=== PATIENT | female | born 1955 | race Caucasian/White ===

== ENCOUNTER 2020-09-04 07:21 | Outpatient (REF) | payer MEDICARE, OTHER, SELFPAY ==
--- NOTE | 2020-09-04 07:25 | MM_ITS ---
EXAMINATION: MM SCREENING DIGITAL BREAST TOMOSYNTHESIS, BILATERAL CLINICAL INFORMATION: Screening. Asymptomatic. The lifetime risk of breast cancer based on the Tyrer-Cuzick Model is 7%. COMPARISON: Mammography: 08/30/2019, 07/13/2018, 06/16/2017 TECHNIQUE: Digital breast tomosynthesis is performed in both the craniocaudal and mediolateral oblique views along with computer-aided detection (CAD). Synthesized 2D images are generated from the tomosynthesis. Additional right CC view is provided. FINDINGS: There are scattered areas of fibroglandular density (ACR BI-RADS breast composition Category b). There are no significant masses, abnormal calcifications, or other abnormalities. No significant changes from prior studies. The axilla and skin contours are unremarkable. MM/MM tomosynthesis screening BI IMPRESSION: No mammographic evidence of malignancy. ASSESSMENT: BI-RADS 1: Negative RECOMMENDATION: Routine annual mammography screening. This patient's information was entered into a reminder system with a target due date for their next mammogram.
== END 2020-09-04 07:22 | disposition home or self-care (01) ==
LOC: HO.MAMMO 07:21
PROVIDERS: PCP Internal Medicine; Visit Provider Internal Medicine
DX: Z12.31 Encounter for screening mammogram for malignant neoplasm of breast (principal)
CPT/HCPCS: 77063; 77067

== ENCOUNTER 2021-09-13 15:21 | Outpatient (REF) | payer MEDICARE, OTHER, SELFPAY ==
--- NOTE | ~2021-09-13 | MM_ITS ---
EXAMINATION: MM SCREENING DIGITAL BREAST TOMOSYNTHESIS, BILATERAL CLINICAL INFORMATION: Screening. Asymptomatic. The lifetime risk of breast cancer based on the Tyrer-Cuzick Model is 8%. COMPARISON: Mammography: 09/04/2020, 08/30/2019, 07/13/2018, 06/16/2017, 01/29/2016, 11/01/2013, 08/17/2012. TECHNIQUE: Digital breast tomosynthesis is performed in both the craniocaudal and mediolateral oblique views along with computer-aided detection (CAD). Synthesized 2D images are generated from the tomosynthesis. Additional left MLO view is provided. FINDINGS: There are scattered areas of fibroglandular density (ACR BI-RADS breast composition Category b). There are no significant masses, abnormal calcifications, or other abnormalities. Parenchymal pattern is similar to prior exams. Small fibroglandular asymmetry posterior medial right breast on CC view is similar to multiple prior exams, beyond field of view on prior study. No developing density. No architectural abnormality. The axilla and skin contours are unremarkable. MM/MM tomosynthesis screening BI IMPRESSION: No significant changes from prior studies. ASSESSMENT: BI-RADS 2: Benign RECOMMENDATION: Routine annual mammography screening. This patient's information was entered into a reminder system with a target due date for their next mammogram.
== END 2021-09-13 15:22 | disposition home or self-care (01) ==
LOC: HO.MAMMO 15:21
PROVIDERS: Visit Provider Internal Medicine
DX: Z12.31 Encounter for screening mammogram for malignant neoplasm of breast (principal)
CPT/HCPCS: 77063; 77067

== ENCOUNTER 2021-12-24 08:09 | Inpatient (IN) | payer MEDICARE, SELFPAY ==
--- NOTE | ~2021-12-24 | CT_ITS ---
EXAMINATION: CT HEAD WITHOUT CONTRAST CLINICAL INFORMATION: Dizziness. COMPARISON: None TECHNIQUE: Contiguous axial imaging was performed from the skull base to vertex without intravenous administration of contrast. This CT examination was performed using dose optimization techniques as appropriate, variously including the following: *Automated exposure control *Adjustment of mA and/or kV according to patient size (this includes techniques or standardized protocols for targeted exams where dose is matched to indication/reason for exam; i.e. extremities or head) *Use of iterative reconstruction technique DLP: 657 mGy-cm FINDINGS: There is no evidence of acute intracranial hemorrhage or territorial infarction. No abnormal mass effect or midline shift is seen. Mcghee to white matter differentiation is well preserved. No extra-axial fluid collections are identified. The ventricles are normal in size. There is no abnormal attenuation within the brain parenchyma. The osseous structures and soft tissues are normal. The visualized portions of the paranasal sinuses are well aerated. The left mastoid air cells appear well-aerated. Partial sclerosis of the right mastoid air cells is noted. CT/CT head/brain wo con IMPRESSION: No acute intracranial pathology.
--- NOTE | ~2021-12-24 | MR_ITS ---
EXAMINATION: MR BRAIN WITHOUT CONTRAST CLINICAL INFORMATION: Dizziness. COMPARISON: Head CT 12/24/2021. TECHNIQUE: Multiplanar, multisequence imaging of the brain was performed without intravenous contrast. FINDINGS: There is no acute infarction, mass, hemorrhage, or extra-axial collection. The ventricles, sulci, and basilar cisterns are normal in size and configuration. Moderate T2/FLAIR hyperintensity seen in the cerebral white matter compatible chronic microangiopathy. The flow voids of the major intracranial arteries appear intact. The bones and extracranial soft tissues are unremarkable. MR/MR head/brain wo con IMPRESSION: No acute infarct, mass lesion, intracranial hemorrhage, or evidence of hydrocephalus. Background changes of chronic microangiopathy.
--- NOTE | ~2021-12-24 | XR_ITS ---
EXAMINATION: XR CHEST CLINICAL INFORMATION: Cough. COMPARISON: Chest x-ray 06/24/2019. TECHNIQUE: 2 views of the chest were obtained. FINDINGS: There is elevated right hemidiaphragm. The lungs are well expanded and clear. Plate-like atelectasis seen in the left lung base. The heart size and pulmonary vascularity are normal. No gross bony abnormality seen. XR/XR chest 2V IMPRESSION: No significant change in elevated right hemidiaphragm. No acute cardiopulmonary process seen.
[2021-12-24 08:12] VITALS: BP 156/76; PULSE 99; RESP 20; TEMP 36.1; O2SAT 97; BMI 29.7
--- NOTE | 2021-12-24 08:43 | ECG_ITS ---
Test Reason : DIZZINESS Blood Pressure : / mmHG Vent. Rate : 085 BPM Atrial Rate : 085 BPM P-R Int : 154 ms QRS Dur : 088 ms QT Int : 374 ms P-R-T Axes : 035 005 032 degrees QTc Int : 445 ms Normal sinus rhythm Nonspecific ST abnormality Abnormal ECG No previous ECGs available Referred By: Norm Max Electronically Signed By:MILVIA BOOTHE MD
--- NOTE | 2021-12-24 08:46 | ED_ITS ---
HPI - Dizziness General Chief Complaint: Dizziness Stated Complaint: Vomiting/Dizzy/Diarrhea Time Seen by Provider: 12/24/21 08:38 Source: patient Mode of arrival: ambulatory Limitations: no limitations History of Present Illness HPI Narrative: this is a 66 years old female presented to the emergency department with chief complaint of dizziness, she describes the dizziness as vertigo which is worse with a head movement better when she states still. She has been vomiting as well. Symptoms started intermittently a week ago got worse yesterday. She denies any medical problems she has history of hypertension number she does not take any medicine MD elicited complaint: dizziness Onset (ago): week(s) (1) Timing: gradual onset Severity: moderate Description: sense of movement and room spinning History of similar symptoms: No Exacerbating factors: movement/ambulation Relieving factors: remaining still Associated symptoms: nausea and vomiting Related Data Previous Rx's Medication Instructions Recorded solifenacin 10 mg tablet 10 mg PO DAILY #90 tab 12/17/20 Allergies Allergy/AdvReac Type Severity Reaction Status Date / Time No Known Allergies Allergy Unverified 05/20/20 15:49 [No Known Allergies*] Review of Systems Review of Systems: Yes all other systems are reviewed and are negative Eyes: Eyes: Reports no additional eye complaints ENT: Reports system reviewed and no additional complaints, except as documented and Reports dizziness Cardiovascular: Cardiovascular: Reports no additional cardiovascular complaints Neurologic: Reports dizziness PMFSH Past Medical History Medical History (Updated 12/24/21 @ 13:57 by Norm Max MD) HTN (hypertension) Surgical History (Updated 12/24/21 @ 08:15 by Jailene Gordillo) H/O: hysterectomy Social History Social History Advance Directives: No Advance Directives Information Provided: No Physical Exam Vital Signs: Vital Signs: Last Vital Signs Temp 97.0 F 12/24/21 08:12 Pulse 88 12/24/21 13:18 Resp 16 12/24/21 13:18 BP 154/71 H 12/24/21 13:18 Pulse Ox 96 12/24/21 13:18 BMI result Body Mass Index 29.7 Const: General: cooperative Orientation/consciousness: patient oriented x3 HEENT: Head: Yes normal to inspection General nose exam: Normal external nose present Face and sinus: Yes normal facial exam Mouth: Normal oral and palatal mucosa present Throat: Yes posterior oropharynx normal Eyes: Other: examination of the eyes shows no nystagmus, no skew deviation pupils equal reactive EOM: EOMs intact bilaterally Neck: Neck: Yes normal visual inspection Resp: Effort & Inspection: normal respiratory effort and able to speak in complete sentences Auscultation: clear to auscultation bilaterally Cardio: Jugular venous distension: no JVD Palpation: normal PMI Rhythm: regular rhythm GI: Inspection: Yes normal to inspection Percussion: Yes normal to p ercussion Auscultation: normal bowel sounds Skin: General skin exam: no rashes or lesions noted and elasticity normal Rashes: no rashes Neuro: Other: cerebellar tests are normal no ataxi seen General: patient oriented x3, no focal motor deficits, CN's II-XI intact bilaterally and normal sensation to monofilament Cranial nerves: Yes Normal accommodation reflex present, Yes Bilaterally intact EOM present and Yes Nystagmus not present Course Reevaluation(s) Reevaluation #1: MRI brain negative, blood work shows that she is anemic which is new did the rectal exam heme-positive stoolsD/W dt . D/W Dr Mccord will admit for OBS MDM - Dizziness Lab Data Result diagrams: 12/24/21 09:08 12/24/21 09:08 Labs: Lab Results 12/24/21 12/24/21 12/24/21 Range/Units 09:08 09:08 09:08 WBC 9.0 (4.8-10.8) X10*3/uL RBC 4.26 (4.20-5.50) X10*6/uL Hgb 8.8 L (12.0-16.0) g/dl Hct 30.7 L (37.0-47.0) % MCV 72.1 L (80.0-98.0) fL MCH 20.7 L (27.0-33.0) pg MCHC 28.7 L (31.0-35.0) g/dl RDW 16.5 H (11.0-16.0) % Plt Count 369 (160-400) X10*3/uL MPV 8.1 L (9.4-12.3) fL Immature Gran % (Auto) 0.8 H (0.0-0.4) % Neut % (Auto) 82.6 H (45-73) % Lymph % (Auto) 11.0 L (20-40) % [place] % (Auto) 4.7 (2-11) % Eos % (Auto) 0.6 (0-4) % Baso % (Auto) 0.3 (0-2) % Lymph # (Auto) 1.0 L (1.2-4.9) X10*3/uL [place] # (Auto) 0.4 (0.1-1.2) X10*3/uL Eos # (Auto) 0.1 (0.0-0.4) X10*3/uL Baso # (Auto) 0.0 (0.0-0.2) X10*3/uL Abs Immat Gran (auto) 0.07 H (0.00-0.03) X10*3/uL Absolute Neuts (auto) 7.4 (2.0-8.3) x10*3/uL Absolute Nucleated RBC 0.000 (0.0-0.012) X10*3/uL Nucleated RBC % (auto) 0.0 (0.0-0.2) /100WBC PT 14.2 H (9.9-13.0) SEC INR 1.2 H (0.9-1.1) Sodium 139 (135-145) mmol/L Potassium 3.7 (3.3-5.1) mmol/L Chloride 103 (96-108) mmol/L Carbon Dioxide 27 (22-29) mmol/L Anion Gap 13 (12-20) BUN 10 (9-16) mg/dL Creatinine 0.60 (0.5-1.4) mg/dL Estim Creat Clear Calc 97.1 Estimated GFR > 60 Random Glucose 124 H (60-115) mg/dL Calcium 9.2 (8.4-10.2) mg/dL Total Bilirubin 0.7 (0.0-1.0) mg/dL AST 9 (5-31) U/L ALT < 6 (0-31) U/L Alkaline Phosphatase 65 (39-117) U/L Troponin I High Sens (<3.5-17.0) ng/L Total Protein 7.2 (6.5-8.0) g/dL Albumin 3.6 (3.5-5.0) g/dL 12/24/21 Range/Units 09:08 WBC (4.8-10.8) X10*3/uL RBC (4.20-5.50) X10*6/uL Hgb (12.0-16.0) g/dl Hct (37.0-47.0) % MCV (80.0-98.0) fL MCH (27.0-33.0) pg MCHC (31.0-35.0) g/dl RDW (11.0-16.0) % Plt Count (160-400) X10*3/uL MPV (9.4-12.3) fL Immature Gran % (Auto) (0.0-0.4) % Neut % (Auto) (45-73) % Lymph % (Auto) (20-40) % [place] % (Auto) (2-11) % Eos % (Auto) (0-4) % Baso % (Auto) (0-2) % Lymph # (Auto) (1.2-4.9) X10*3/uL [place] # (Auto) (0.1-1.2) X10*3/uL Eos # (Auto) (0.0-0.4) X10*3/uL Baso # (Auto) (0.0-0.2) X10*3/uL Abs Immat Gran (auto) (0.00-0.03) X10*3/uL Absolute Neuts (auto) (2.0-8.3) x10*3/uL Absolute Nucleated RBC (0.0-0.012) X10*3/uL Nucleated RBC % (auto) (0.0-0.2) /100WBC PT (9.9-13.0) SEC INR (0.9-1.1) Sodium (135-145) mmol/L Potassium (3.3-5.1) mmol/L Chloride (96-108) mmol/L Carbon Dioxide (22-29) mmol/L Anion Gap (12-20) BUN (9-16) mg/dL Creatinine (0.5-1.4) mg/dL Estim Creat Clear Calc Estimated GFR Random Glucose (60-115) mg/dL Calcium (8.4-10.2) mg/dL Total Bilirubin (0.0-1.0) mg/dL AST (5-31) U/L ALT (0-31) U/L Alkaline Phosphatase (39-117) U/L Troponin I High Sens < 3.5 (<3.5-17.0) ng/L Total Protein (6.5-8.0) g/dL Albumin (3.5-5.0) g/dL Imaging Data MRI: Radiologist's impression: MR BRAIN WITHOUT CONTRAST CLINICAL INFORMATION: Dizziness. COMPARISON: Head CT 12/24/2021. TECHNIQUE: Multiplanar, multisequence imaging of the brain was performed without intravenous contrast. FINDINGS: There is no acute infarction, mass, hemorrhage, or extra-axial collection.? The ventricles, sulci, and basilar cisterns are normal in size and configuration. Moderate T2/FLAIR hyperintensity seen in the cerebral white matter compatible chronic microangiopathy. The flow voids of the major intracranial arteries appear intact. The bones and extracranial soft tissues are unremarkable. MR/MR head/brain wo con IMPRESSION: No acute infarct, mass lesion, intracranial hemorrhage, or evidence of hydrocephalus. Background changes of chronic microangiopathy. Dictated By: GONZALO PETERSON MD Signed By: <Electronically signed by GONZALO PETERSON MD in OV> 12/24/21 1333 DD/ 1235 Discharge Plan Discharge Clinical Impression: Dizziness, Anemia Patient Disposition: Admitted As Inpatient
[2021-12-24 09:12] LABS: MANUAL DIFF FLAG NO
[2021-12-24 09:13] LABS: Basophils Percent Auto 0.3 % (0-2); Eosinophils Absolute Auto 0.1 X10*3/uL (0.0-0.4); Eosinophils Percent Auto 0.6 % (0-4); Hematocrit 30.7 % (37.0-47.0); Hemoglobin 8.8 g/dl (12.0-16.0); Imm Gran Abs Auto 0.07 X10*3/uL (0.00-0.03); Imm Gran Pct Auto 0.8 % (0.0-0.4); Mean Corpuscular HGB Conc 28.7 g/dl (31.0-35.0); Mean Corpuscular Hemoglobin 20.7 pg (27.0-33.0); Mean Corpuscular Volume 72.1 fL (80.0-98.0); Mean Platelet Volume 8.1 fL (9.4-12.3); Monocytes Absolute Auto 0.4 X10*3/uL (0.1-1.2); Monocytes Percent Auto 4.7 % (2-11); Neutrophils Absolute Auto 7.4 x10*3/uL (2.0-8.3); Neutrophils Percent Auto 82.6 % (45-73); Platelet Count 369 X10*3/uL (160-400); Red Blood Count 4.26 X10*6/uL (4.20-5.50); Red Cell Distribution Width 16.5 % (11.0-16.0)
[2021-12-24] MEDS: Metoclopramide HCl 10 MG/2 ML VIAL IVPUSH (09:14)
[2021-12-24] MEDS: 0.9 % Sodium Chloride 1,000 ML 999 ML IVCONT (09:15)
[2021-12-24 09:20] LABS: INTERNATIONAL NORM RATIO 1.2 (0.9-1.1); Prothrombin Time 14.2 SEC (9.9-13.0)
[2021-12-24 09:35] LABS: Alanine Aminotransferase < 6 U/L (0-31); Albumin Level 3.6 g/dL (3.5-5.0); Alkaline Phosphatase 65 U/L (39-117); Anion Gap 13 (12-20); Aspartate Amino Transferase 9 U/L (5-31); Bilirubin Total 0.7 mg/dL (0.0-1.0); Blood Urea Nitrogen 10 mg/dL (9-16); Calcium 9.2 mg/dL (8.4-10.2); Carbon Dioxide 27 mmol/L (22-29); Chloride 103 mmol/L (96-108); Creatinine Clr Calc Pharmacy 97.1; Estimated Glomerular Filt Rate > 60; Glucose Random 124 mg/dL (60-115); Potassium 3.7 mmol/L (3.3-5.1); Sodium 139 mmol/L (135-145); Total Protein 7.2 g/dL (6.5-8.0); Troponin-I High Sensitivity < 3.5 ng/L (<3.5-17.0)
[2021-12-24] MEDS: Meclizine HCl 25 MG TABLET PO ×2 (11:03→23:59)
[2021-12-24 13:18] VITALS: BP 154/71; PULSE 88; RESP 16; O2SAT 96
--- NOTE | 2021-12-24 13:19 | PC.NURSE ---
VSS, dizziness an nausea persist. NSR on montior. speech clear.
[2021-12-24] MEDS: diazePAM 2 MG TABLET 5 MG PO (14:33)
--- NOTE | 2021-12-24 14:45 | P.HPHOSP_ITS ---
History of Present Illness Date of Service: 12/24/21 Attending physician on admission: Jovanny Mccord Chief Complaint: vertiago, anemia 66-year-old female with past medical history of hypertension-coming to the hospital because of having episode of dizziness and spinning sensation at home. She says that she had similar sensation 2 weeks ago which subsided spontaneously but this time she was having severe dizziness and and room spinning sensation, nausea and vomiting multiple times at home-so decided to come to the hospital. She also had tinnitus. Patient says that she gets very dizzy with little movement of her head. In addition patient was found to have anemia in blood work-further ED physician says that occult blood was positive. Patient says that she has invariably occasionally dark stools but more brownish also occasionally noticed red blood with stool. Patient denies any abdominal pain or any change in bowel habits for dysphagia. For patiently has heartburn for which she uses Tums. She also uses ibuprofen daily as per patient. Patient has medical history of hypertension was on blood pressure medication but a year ago she has stopped blood pressure medication on her own, she says then she did not went to her PCP afterwards so she is off any blood pressure medica tions. Currently she feels nauseated, no vomiting so far but feels very dizzy. Concern to walk since feels everything spinning. Past medical history: Hypertension Past surgical history she had colonoscopy in 2017-found to have diverticulosis, internal hemorrhoids. Never had EGD. Social history: Lives with her , denies any smoking or recreational drug use or ETOH use. Independent ADLs Denies any new complaint of chest pain or shortness of breath or abdominal pain or fever or chills or blurred vision. Denies any cough Denies any weakness or numbness. Review of Systems Review of Systems: As above. Yes all other systems are reviewed and are negative PMFSH Medical History HTN (hypertension) Pertinent family history: Mother had renal cancer, father had bladder cancer. Surgical History H/O: hysterectomy Social History Advance Directives: No Advance Directives Information Provided: No Meds Allergies Allergy/AdvReac Type Severity Reaction Status Date / Time No Known Allergies Allergy Unverified 05/20/20 15:49 [No Known Allergies*] Active Medications: Current Medications Diphenhydramine HCl 25 mg/ (Sodium Chloride) 50.5 mls @ 200 mls/hr IV ONCE [facility] Last Infusion: 12/24/21 10:56 Dose: Infused Documented by: Meclizine HCl (Meclizine Hcl 25 Mg Tablet) 25 mg PO Q6H PRN PRN Reason: Vertigo Ondansetron HCl (Ondansetron Hcl 4 Mg/2 Ml Vial) 4 mg IVPUSH Q4H PRN PRN Reason: Nausea and Vomiting Pantoprazole Sodium (Pantoprazole Sodium 40 Mg/10 Ml Vial) 40 mg IVPUSH BID@0630,1630 [facility] Pharmacy Consult (Consult Rx Perform Med Rec) 1 each MISCELLANE ONCE PRN PRN Reason: Consult order Sodium Chloride (0.9 % Sodium Chloride Flush 3 Ml Syringe) 3 ml IVFLUSH QSHIFT [facility] Home Medications Medication Instructions Recorded Confirmed Last Taken Type ibuprofen 200 mg tablet 400 mg PO Q6H PRN 12/24/21 12/24/21 Unknown History Physical Exam Vital Signs and Narrative: Vital Signs: Last Vital Signs Temp 97.0 F 12/24/21 08:12 Pulse 88 12/24/21 13:18 Resp 16 12/24/21 13:18 BP 154/71 H 12/24/21 13:18 Pulse Ox 96 12/24/21 13:18 BMI result Body Mass Index 29.7 Appearance: Alert.? Oriented X3.? not in distress.? Eyes: Pupils equal, round and reactive to light.? Sclera nonicteric.? ENT: Pharynx normal.? Moist mucous membranes. cvs: rrr, [id number] , no murmur res: clear to auscultation ,no rhonchii or wheezing abd: no rebound or guarding ,nt, bs present. ext pulses present , no cyanosis . neuro: axo3 , eomi ,perrla nystagymus present moves all ext sensations intact face symterical. Results Labs CBC and Chem 7: 12/24/21 09:08 12/24/21 09:08 Labs: Laboratory Results - last 24 hr 12/24/21 12/24/21 12/24/21 09:08 09:08 09:08 MCV 72.1 L MCH 20.7 L MCHC 28.7 L RDW 16.5 H Plt Count 369 MPV 8.1 L Immature Gran % (Auto) 0.8 H Neut % (Auto) 82.6 H Lymph % (Auto) 11.0 L [place] % (Auto) 4.7 Eos % (Auto) 0.6 Baso % (Auto) 0.3 Lymph # (Auto) 1.0 L [place] # (Auto) 0.4 Eos # (Auto) 0.1 Baso # (Auto) 0.0 Abs Immat Gran (auto) 0.07 H Absolute Neuts (auto) 7.4 Absolute Nucleated RBC 0.000 Nucleated RBC % (auto) 0.0 PT 14.2 H INR 1.2 H Anion Gap 13 Estim Creat Clear Calc 97.1 Estimated GFR > 60 Random Glucose 124 H Calcium 9.2 Total Bilirubin 0.7 AST 9 ALT < 6 Alkaline Phosphatase 65 Troponin I High Sens Total Protein 7.2 Albumin 3.6 12/24/21 09:08 MCV MCH MCHC RDW Plt Count MPV Immature Gran % (Auto) Neut % (Auto) Lymph % (Auto) [place] % (Auto) Eos % (Auto) Baso % (Auto) Lymph # (Auto) [place] # (Auto) Eos # (Auto) Baso # (Auto) Abs Immat Gran (auto) Absolute Neuts (auto) Absolute Nucleated RBC Nucleated RBC % (auto) PT INR Anion Gap Estim Creat Clear Calc Estimated GFR Random Glucose Calcium Total Bilirubin AST ALT Alkaline Phosphatase Troponin I High Sens < 3.5 Total Protein Albumin ECG Attestation: I personally reviewed and interpreted this ECG as follows: (nsr) Imaging Radiologist's Impressions: Impressions Head CT 12/24/21 09:34 IMPRESSION: No acute intracranial pathology. Brain MRI 12/24/21 12:35 IMPRESSION: No acute infarct, mass lesion, intracranial hemorrhage, or evidence of hydrocephalus. Background changes of chronic microangiopathy. Assessment and Plan (1) Dizziness: Status: Acute (2) Anemia: Status: Acute Plan 66-year-old female with vertigo and anemia. Possible benign positional vertigo: CT and MRI head seems fine. Will start patient on meclizine, nausea medication and gentle hydration. Microcytic anemia: Occult blood positive as per ED physician. Possible related to GI blood loss-which seems chronic. Stop ibuprofen, ppi, type and cross. Iron studies, monitor CBC closely. Previous colonoscopy in 2017 reveals-diverticulosis and internal hemorrhoid. GI evaluation Hypertension: We may add amlodipine low-dose. dvt prophyalx: Mechanical devices due to anemia. Above management discussed with patient and her in detail length, they both understand and in agreement with above plan, time spent 70 minute, patient full code. Patient name is Mr. Cueto: Phone [phone] Quality Stroke Does the patient have a stroke diagnosis?: No VTE Prior VTE?: No VTE Risk Level:: Medical - moderate - high VTE Device Contraindication: N/A - Device Ordered VTE Drug Contraindication: N/A - Med Ordered
[2021-12-24 14:49] LABS: OBS Int Ctl Valid YES; OBS1 POSITIVE (NEGATIVE)
[2021-12-24 14:53] LABS: Iron 20 mcg/dL (30-160); Percent Iron Saturation 6 % (15-50); Total Iron Binding Capacity 352 mcg/dL (228-428); Unsaturated Iron Binding 332 ug/dL
--- NOTE | 2021-12-24 14:54 | PHA.MEDREC ---
Pharmacy Consult ? Medication Reconciliation Pharmacy has completed the medication reconciliation.Spoke with patient in ED
[2021-12-24 15:05] LABS: COVID-19 Test Negative (Negative)
[2021-12-24 15:13] LABS: Ferritin 9 ng/mL (10-250)
--- NOTE | 2021-12-24 15:47 | PM.GICN ---
History of Present Illness Data of Consult Service Date: 12/24/21 Requesting physician: Jovanny Mccord Primary Care Provider: Ford Krishnan MD [facility] Reason for consult: anemia 66-year-old female with past medical history of hypertension-who I am seeing for assessment for anemia. She actually presented with sudden onset left ear tinnitus with vertigo and non bloody emesis with nausea. No headache or limb weakness or slurred speech. symptoms worse with turning her head. As part of work up she had lasb drawn with HGB 8.8 and low MCY (HGB had been 13 g/dl 3 yrs ago. She does endorse occ blood mixed in stool for last several months as well as new onset post prandail diarrheal type stool. she has been taking ibuprofen for years for back pain on daily basis, with occ use of tums or pepcid for dyspepsia. Denies melena, epistaxis, hemoptysis, vaginal bleeding or hematuria. She gets v occ lower abdominal cramps. she had colonoscopy in 2017-found to have diverticulosis, internal hemorrhoids.? Never had EGD. Lives with her , denies any smoking or recreational drug use or ETOH use. Review of Systems Review of Systems: As above. Yes all other systems are reviewed and are negative Constitutional: Constitutional: Reports as per HPI Eyes: Eyes: Reports no additional eye complaints ENT: Reports system reviewed and no additional complaints, except as documented, Reports vertigo and Reports dizziness Cardiovascular: Cardiovascular: Reports no additional cardiovascular complaints Gastrointestinal: Gastrointestinal: Reports as per HPI Genitourinary: Genitourinary: Reports no additional female genitourinary complaints Musculoskeletal: Musculoskeletal: Reports no additional musculoskeletal complaints Neurologic: Reports vertigo and Reports dizziness Psychiatric: Psychiatric: Reports no additional psychiatric complaints Endocrine: Endocrine: Reports no additional endocrine complaints Hematologic/Lymphatic: Hematologic/Lymphatic: Reports no additional hematologic/lymphatic complaints Allergic/Immunologic: Allergic/Immunologic: Reports no additional allergic/immunologic complaints [facility] Past Medical History Medical History HTN (hypertension) Functional capacity: independent ambulation Family History Pertinent family history: Mother had renal cancer, father had bladder cancer. Surgical History Surgical History H/O: hysterectomy Social History Social History (Updated 12/24/21 @ 15:56 by Jakub Ortiz MD) Alcohol intake: never Patient Tobacco Use Status: Never used Tobacco Use of substances other than those prescribed or required for medical reasons: No Advance Directives: No Advance Directives Information Provided: No Meds Allergies Allergy/AdvReac Type Severity Reaction Status Date / Time No Known Allergies Allergy Unverified 05/20/20 15:49 [No Known Allergies*] Active Medications: Current Medications Amlodipine Besylate (Amlodipine Besylate 2.5 Mg Tablet) 2.5 mg PO DAILY [facility]; Protocol Diphenhydramine HCl 25 mg/ (Sodium Chloride) 50.5 mls @ 200 mls/hr IV ONCE [facility] Last Infusion: 12/24/21 10:56 Dose: Infused Documented by: Meclizine HCl (Meclizine Hcl 25 Mg Tablet) 25 mg PO Q6H PRN PRN Reason: Vertigo Ondansetron HCl (Ondansetron Hcl 4 Mg/2 Ml Vial) 4 mg IVPUSH Q8H PRN PRN Reason: Nausea and Vomiting Pantoprazole Sodium (Pantoprazole Sodium 40 Mg/10 Ml Vial) 40 mg IVPUSH BID@0630,1630 [facility] Pharmacy Consult (Consult Rx Perform Med Rec) 1 each MISCELLANE ONCE PRN PRN Reason: Consult order Sodium Chloride (0.9 % Sodium Chloride Flush 3 Ml Syringe) 3 ml IVFLUSH QSHIFT [facility] Home Medications Medication Instructions Recorded Confirmed Last Taken Type ibuprofen 200 mg tablet 400 mg PO Q6H PRN 12/24/21 12/24/21 Unknown History Physical Exam Vital Signs: Vital Signs: Last Vital Signs Temp 97.0 F 12/24/21 08:12 Pulse 88 12/24/21 13:18 Resp 16 12/24/21 13:18 BP 154/71 H 12/24/21 13:18 Pulse Ox 96 12/24/21 13:18 BMI result Body Mass Index 29.7 Const: General: cooperative Orientation/consciousness: patient oriented x3 HEENT: Head: Yes normal to inspection General nose exam: Normal external nose present Face and sinus: Yes normal facial exam Mouth: Normal oral and palatal mucosa present Throat: Yes posterior oropharynx normal Eyes: Other: examination of the eyes shows no nystagmus, no skew deviation pupils equal reactive EOM: EOMs intact bilaterally Neck: Neck: Yes normal visual inspection Resp: Effort & Inspection: normal respiratory effort and able to speak in complete sentences Auscultation: clear to auscultation bilaterally Cardio: Jugular venous distension: no JVD Palpation: normal PMI Rhythm: regular rhythm GI: Inspection: Yes normal to inspection Percussion: Yes normal to percussion Auscultation: normal bowel sounds Skin: General skin exam: no rashes or lesions noted and elasticity normal Rashes: no rashes Neuro: Other: cerebellar tests are normal no ataxi seen General: patient oriented x3, no focal motor deficits, CN's II-XI intact bilaterally and normal sensation to monofilament Cranial nerves: Yes Normal accommodation reflex present, Yes Bilaterally intact EOM present and Yes Nystagmus not present Extrem: General: Yes normal to inspection Psych: Appearance: grossly normal Results Labs CBC & Chem 7: 12/24/21 09:08 12/24/21 09:08 Labs: Short CBC 12/24/21 Range/Units 09:08 WBC 9.0 (4.8-10.8) X10*3/uL Hgb 8.8 L (12.0-16.0) g/dl Hct 30.7 L (37.0-47.0) % Plt Count 369 (160-400) X10*3/uL BMP 12/24/21 09:08 Sodium 139 Potassium 3.7 Chloride 103 Carbon Dioxide 27 BUN 10 Creatinine 0.60 Calcium 9.2 Liver Function 12/24/21 Range/Units 09:08 Total Bilirubin 0.7 (0.0-1.0) mg/dL AST 9 (5-31) U/L ALT < 6 (0-31) U/L Alkaline Phosphatase 65 (39-117) U/L Albumin 3.6 (3.5-5.0) g/dL Assessment and Plan (1) Anemia: Status: Acute Plan 1/ Microcytic anemia, prob due to chronic blood loss, maybe hemorrhoidal or due to intestinal injury from chronic nsaid use, PUD< neoplasia, polyps, enteritis, celiac disease PLAN: 1/ check iron, b12 and folate, 2/ stop nsaid and use PPI e.g pantoprazole 40 mg daily 3/ monitor HGB and trend, can consider EGD, colon once her primary complaint resolve to be determined if will be o/p vs i/p procedure, will depend on whether her sx improve or not Procedures Date of Service Date of Service: 12/24/21
[2021-12-24] MEDS: Pantoprazole Sodium 40 MG/10 ML VIAL IVPUSH (15:55)
[2021-12-24 18:23] VITALS: BP 158/83; PULSE 90; RESP 18; TEMP 36.7; O2SAT 97
[2021-12-24 20:00] VITALS: BP 186/88; PULSE 92; RESP 18; TEMP 36.9; O2SAT 96
--- NOTE | 2021-12-24 20:30 | PC.NURSE ---
no need for telemetry monitoring per Dr. Hutson
[2021-12-24] MEDS: 0.9 % Sodium Chloride Flush 3 ML SYRINGE IVFLUSH (23:56)
[2021-12-24 23:57] VITALS: BP 155/84; PULSE 79; RESP 18; TEMP 36.9; O2SAT 96
[2021-12-24] MEDS: ondansetron HCL 4 MG/2 ML VIAL IVPUSH (23:59)
[2021-12-25 03:32] VITALS: BP 160/78; PULSE 85; RESP 18; TEMP 36.3; O2SAT 97
[2021-12-25] MEDS: Pantoprazole Sodium 40 MG/10 ML VIAL IVPUSH ×2 (05:27→16:40)
[2021-12-25] MEDS: Meclizine HCl 25 MG TABLET PO (06:25)
[2021-12-25 06:30] LABS: Hemoglobin 8.6 g/dl (12.0-16.0); Mean Corpuscular HGB Conc 28.7 g/dl (31.0-35.0); Mean Corpuscular Hemoglobin 20.6 pg (27.0-33.0); Mean Corpuscular Volume 71.8 fL (80.0-98.0); Mean Platelet Volume 8.4 fL (9.4-12.3); Platelet Count 397 X10*3/uL (160-400); Red Blood Count 4.18 X10*6/uL (4.20-5.50); Red Cell Distribution Width 16.3 % (11.0-16.0); White Blood Count 13.5 X10*3/uL (4.8-10.8)
[2021-12-25 06:54] VITALS: BP 160/76; PULSE 85; RESP 20; TEMP 35.7; O2SAT 98
--- NOTE | 2021-12-25 07:39 | P.PNIM_ITS ---
Subjective Subjective Date of Service: 12/25/21 Interval History: possible bppv, anemia Review of Systems still feels dizziness , spining sensation Feeling nauseated but denies any vomiting. Still could not tolerate the food yet. She had the stool Mixed with some bloodepisode this morning. Physical Exam Vital Signs: Vital Signs: Last Vital Signs Temp 96.2 F L 12/25/21 06:54 Pulse 85 12/25/21 06:54 Resp 20 12/25/21 06:54 BP 160/76 H 12/25/21 06:54 Pulse Ox 98 12/25/21 06:54 BMI result Body Mass Index 29.7 ? Appearance: Alert.? Oriented X3.? not in distress.? Eyes: Pupils equal, round and reactive to light.? Sclera nonicteric.? ENT: Pharynx normal.? Moist mucous membranes. cvs: rrr, [id number] , no murmur res: clear to auscultation ,no rhonchii or wheezing abd: no rebound or guarding ,nt, bs present. ext pulses present , no cyanosis . neuro: axo3 ,eomi ,perrla,nystagymus present,moves all ext,sensations intact face symterical. Objective Data Active Medications Amlodipine Besylate (Amlodipine Besylate 2.5 Mg Tablet) 2.5 mg PO DAILY [facility]; Protocol Diphenhydramine HCl 25 mg/ (Sodium Chloride) 50.5 mls @ 200 mls/hr IV ONCE [facility] Last Infusion: 12/24/21 10:56 Dose: 0 mls/hr Documented by: NADIR Meclizine HCl (Meclizine Hcl 25 Mg Tablet) 25 mg PO Q6H PRN PRN Reason: Vertigo Last Admin: 12/25/21 06:25 Dose: 25 mg Documented by: SONY Ondansetron HCl (Ondansetron Hcl 4 Mg/2 Ml Vial) 4 mg IVPUSH Q8H PRN PRN Reason: Nausea and Vomiting Last Admin: 12/24/21 23:59 Dose: 4 mg Documented by: SONY Pantoprazole Sodium (Pantoprazole Sodium 40 Mg/10 Ml Vial) 40 mg IVPUSH BID@0630,1630 [facility] Last Admin: 12/25/21 05:27 Dose: 40 mg Documented by: SONY Pharmacy Consult (Consult Rx Perform Med Rec) 1 each MISCELLANE ONCE PRN PRN Reason: Consult order Sodium Chloride (0.9 % Sodium Chloride Flush 3 Ml Syringe) 3 ml IVFLUSH QSHIFT [facility] Last Admin: 12/24/21 23:56 Dose: 3 ml Documented by: SONY Labs CBC & Chem 7: 12/25/21 05:44 12/25/21 05:44 Labs: Laboratory Results - last 24 hr 12/24/21 12/24/21 12/24/21 09:08 09:08 09:08 MCV 72.1 L MCH 20.7 L MCHC 28.7 L RDW 16.5 H Plt Count 369 MPV 8.1 L Immature Gran % (Auto) 0.8 H Neut % (Auto) 82.6 H Lymph % (Auto) 11.0 L [place] % (Auto) 4.7 Eos % (Auto) 0.6 Baso % (Auto) 0.3 Lymph # (Auto) 1.0 L [place] # (Auto) 0.4 Eos # (Auto) 0.1 Baso # (Auto) 0.0 Abs Immat Gran (auto) 0.07 H Absolute Neuts (auto) 7.4 Absolute Nucleated RBC 0.000 Nucleated RBC % (auto) 0.0 PT 14.2 H INR 1.2 H Anion Gap 13 Estim Creat Clear Calc 97.1 Estimated GFR > 60 Random Glucose 124 H Calcium 9.2 Iron 20 L TIBC 352 % Saturation 6 L Unsat Iron Binding 332 Ferritin 9 L Total Bilirubin 0.7 AST 9 ALT < 6 Alkaline Phosphatase 65 Troponin I High Sens Total Protein 7.2 Albumin 3.6 Stool Occult Blood COVID-19 ([facility]) COVID-19 Clin Com 12/24/21 12/24/21 12/24/21 09:08 14:09 14:42 MCV MCH MCHC RDW Plt Count MPV Immature Gran % (Auto) Neut % (Auto) Lymph % (Auto) [place] % (Auto) Eos % (Auto) Baso % (Auto) Lymph # (Auto) [place] # (Auto) Eos # (Auto) Baso # (Auto) Abs Immat Gran (auto) Absolute Neuts (auto) Absolute Nucleated RBC Nucleated RBC % (auto) PT INR Anion Gap Estim Creat Clear Calc Estimated GFR Random Glucose Calcium Iron TIBC % Saturation Unsat Iron Binding Ferritin Total Bilirubin AST ALT Alkaline Phosphatase Troponin I High Sens < 3.5 Total Protein Albumin Stool Occult Blood POSITIVE COVID-19 ([facility]) Negative COVID-19 Clin Com See Note 12/25/21 05:44 MCV 71.8 L MCH 20.6 L MCHC 28.7 L RDW 16.3 H Plt Count 397 MPV 8.4 L Immature Gran % (Auto) Neut % (Auto) Lymph % (Auto) [place] % (Auto) Eos % (Auto) Baso % (Auto) Lymph # (Auto) [place] # (Auto) Eos # (Auto) Baso # (Auto) Abs Immat Gran (auto) Absolute Neuts (auto) Absolute Nucleated RBC 0.000 Nucleated RBC % (auto) 0.0 PT INR Anion Gap Estim Creat Clear Calc Estimated GFR Random Glucose Calcium Iron TIBC % Saturation Unsat Iron Binding Ferritin Total Bilirubin AST ALT Alkaline Phosphatase Troponin I High Sens Total Protein Albumin Stool Occult Blood COVID-19 ([facility]) COVID-19 Clin Com Assessment and Plan (1) Dizziness: Status: Acute (2) Anemia: Status: Acute Plan 66-year-old female with vertigo and anemia. 1.Possible benign positional vertigo: ?CT and MRI head seems fine. Will start patient on meclizine, nausea medication and gentle hydration. 2.Microcytic anemia:? Occult blood positive as per ED physician. Possible related to GI blood loss-which seems chronic. Stop ibuprofen, ppi, type and cross. Iron studies noted , one episode stool/blood moniter h/h Previous colonoscopy in 2017 reveals-diverticulosis and internal hemorrhoid. GI evaluation 3.Hypertension:? We may add amlodipine low-dose. dvt? prophyalx:? Mechanical devices due to anemia. Quality Stroke Does the patient have a stroke diagnosis?: No VTE Prior VTE?: No VTE Risk Level:: Medical - moderate - high VTE Device Contraindication: N/A - Device Ordered VTE Drug Contraindication: N/A - Med Ordered
[2021-12-25 08:39] LABS: Anion Gap 11 (12-20); Blood Urea Nitrogen 10 mg/dL (9-16); Calcium 9.3 mg/dL (8.4-10.2); Carbon Dioxide 29 mmol/L (22-29); Chloride 103 mmol/L (96-108); Creatinine Clr Calc Pharmacy 102.2; Estimated Glomerular Filt Rate > 60; Glucose Random 106 mg/dL (60-115); Potassium 3.8 mmol/L (3.3-5.1); Sodium 139 mmol/L (135-145)
[2021-12-25] MEDS: amLODIPine Besylate 2.5 MG TABLET PO (09:34)
[2021-12-25] MEDS: 0.9 % Sodium Chloride Flush 3 ML SYRINGE IVFLUSH ×2 (09:34→16:40)
[2021-12-25] MEDS: ondansetron HCL 4 MG/2 ML VIAL IVPUSH (09:39)
--- NOTE | 2021-12-25 11:02 | MHC.CM.PN ---
Lives at home w/. Prev independent, no prior equipment, no prior services, drives; but not lately given vertigo, drives her. Plan is home w/ via w/? OP vestibular therapy? CM to follow.
[2021-12-25 11:14] VITALS: BP 155/75; PULSE 84; RESP 19; TEMP 36.1; O2SAT 97
[2021-12-25 15:38] VITALS: BP 167/83; PULSE 86; RESP 18; TEMP 37.1; O2SAT 95
[2021-12-25] MEDS: Acetaminophen 325 MG TABLET 650 MG PO (17:08)
[2021-12-25 19:18] VITALS: BP 139/70; PULSE 83; RESP 18; TEMP 37.1; O2SAT 96
[2021-12-25 23:57] VITALS: BP 153/72; PULSE 82; RESP 17; TEMP 36.3; O2SAT 95
[2021-12-26] MEDS: 0.9 % Sodium Chloride Flush 3 ML SYRINGE IVFLUSH ×3 (00:22→16:46)
[2021-12-26] MEDS: Acetaminophen 325 MG TABLET 650 MG PO ×2 (00:49→07:20)
[2021-12-26] MEDS: Meclizine HCl 25 MG TABLET PO ×2 (00:49→07:20)
--- NOTE | 2021-12-26 02:46 | PC.NURSE ---
Tylenol and Meclizine around midnight for headache and dizziness with movement. Patient reports occasional nausea with getting OOB.
[2021-12-26 04:00] VITALS: BP 135/77; PULSE 73; RESP 18; TEMP 36.1; O2SAT 96
[2021-12-26] MEDS: Pantoprazole Sodium 40 MG/10 ML VIAL IVPUSH ×2 (06:35→16:49)
[2021-12-26 07:02] LABS: Folate 9.6 ng/mL (> or = 4.0); Vitamin B12 330 pg/mL (200-900)
[2021-12-26] MEDS: amLODIPine Besylate 2.5 MG TABLET PO (07:20)
[2021-12-26 07:41] VITALS: BP 139/67; PULSE 79; RESP 17; TEMP 36.2; O2SAT 97
[2021-12-26 08:38] LABS: Hematocrit 31.5 % (37.0-47.0); Hemoglobin 8.9 g/dl (12.0-16.0); Mean Corpuscular HGB Conc 28.3 g/dl (31.0-35.0); Mean Corpuscular Hemoglobin 20.7 pg (27.0-33.0); Mean Corpuscular Volume 73.4 fL (80.0-98.0); Mean Platelet Volume 8.7 fL (9.4-12.3); Platelet Count 340 X10*3/uL (160-400); Red Blood Count 4.29 X10*6/uL (4.20-5.50); Red Cell Distribution Width 16.4 % (11.0-16.0); White Blood Count 9.6 X10*3/uL (4.8-10.8)
[2021-12-26 08:56] LABS: Anion Gap 11 (12-20); Blood Urea Nitrogen 15 mg/dL (9-16); Calcium 9.2 mg/dL (8.4-10.2); Carbon Dioxide 33 mmol/L (22-29); Chloride 100 mmol/L (96-108); Creatinine Clr Calc Pharmacy 84.4; Estimated Glomerular Filt Rate > 60; Glucose Random 99 mg/dL (60-115); Potassium 3.7 mmol/L (3.3-5.1); Sodium 140 mmol/L (135-145)
[2021-12-26 12:00] VITALS: BP 140/66; PULSE 70; RESP 17; TEMP 36.2; O2SAT 94
--- NOTE | 2021-12-26 12:13 | P.PNIM_ITS ---
Subjective Subjective Date of Service: 12/26/21 Interval History: possible bppv, anemia Review of Systems still feels dizziness , spining sensation ? Feeling nauseated but denies any vomiting. ? no overnight bleeding Physical Exam Vital Signs: Vital Signs: Last Vital Signs Temp 97.2 F 12/26/21 07:41 Pulse 79 12/26/21 07:41 Resp 17 12/26/21 07:41 BP 139/67 12/26/21 07:41 Pulse Ox 97 12/26/21 07:41 BMI result Body Mass Index 29.7 Appearance: Alert.? Oriented X3.? not in distress.? cvs: rrr, [id number] , no murmur res: clear to auscultation ,no rhonchii or wheezing abd: no rebound or guarding ,nt, bs present. ext pulses present , no cyanosis . neuro: axo3 ,eomi ,perrla,nystagymus present,moves all ext,sensations intact face symterical. Objective Data Active Medications Acetaminophen (Acetaminophen 325 Mg Tablet) 650 mg PO Q6H PRN PRN Reason: Headache Last Admin: 12/26/21 07:20 Dose: 650 mg Documented by: LONDON Amlodipine Besylate (Amlodipine Besylate 2.5 Mg Tablet) 2.5 mg PO DAILY [facility]; Protocol Last Admin: 12/26/21 07:20 Dose: 2.5 mg Documented by: LONDON Diphenhydramine HCl 25 mg/ (Sodium Chloride) 50.5 mls @ 200 mls/hr IV ONCE [facility] Last Infusion: 12/24/21 10:56 Dose: 0 mls/hr Documented by: NADIR Meclizine HCl (Meclizine Hcl 25 Mg Tablet) 25 mg PO Q6H PRN PRN Reason: Vertigo Last Admin: 12/26/21 07:20 Dose: 25 mg Documented by: LONDON Ondansetron HCl (Ondansetron Hcl 4 Mg/2 Ml Vial) 4 mg IVPUSH Q8H PRN PRN Reason: Nausea and Vomiting Last Admin: 12/25/21 09:39 Dose: 4 mg Documented by: ZAY Pantoprazole Sodium (Pantoprazole Sodium 40 Mg/10 Ml Vial) 40 mg IVPUSH BID@0630,1630 [facility] Last Admin: 12/26/21 06:35 Dose: 40 mg Documented by: RADHA Pharmacy Consult (Consult Rx Perform Med Rec) 1 each MISCELLANE ONCE PRN PRN Reason: Consult order Sodium Chloride (0.9 % Sodium Chloride Flush 3 Ml Syringe) 3 ml IVFLUSH QSHIFT [facility] Last Admin: 12/26/21 06:35 Dose: 3 ml Documented by: RADHA Labs CBC & Chem 7: 12/26/21 07:58 12/26/21 07:58 Labs: Laboratory Results - last 24 hr 12/24/21 12/26/21 12/26/21 09:08 07:58 07:58 MCV 73.4 L MCH 20.7 L MCHC 28.3 L RDW 16.4 H Plt Count 340 MPV 8.7 L Absolute Nucleated RBC 0.000 Nucleated RBC % (auto) 0.0 Anion Gap 11 L Estim Creat Clear Calc 84.4 Estimated GFR > 60 Random Glucose 99 Calcium 9.2 Vitamin B12 330 Folate 9.6 Assessment and Plan (1) Dizziness: Status: Acute (2) Anemia: Status: Acute Plan 66-year-old female with vertigo and anemia. 1.Possible benign positional vertigo: ?CT and MRI head seems fine. Will start patient on meclizine, nausea medication and gentle hydration. OT and neuro eval. 2.Microcytic anemia:? Occult blood positive as per ED physician. Possible related to GI blood loss-which seems chronic. Stop ibuprofen, ppi, type and cross. Iron studies noted , one episode stool/blood yesterday moniter h/h Previous colonoscopy in 2017 reveals-diverticulosis and internal hemorrhoid. GI evaluation-noted -she might need egd once bppv symptoms improves. 3.Hypertension:? We may add amlodipine low-dose. dvt? prophyalx:? Mechanical devices due to anemia. Quality Stroke Does the patient have a stroke diagnosis?: No VTE Prior VTE?: No VTE Risk Level:: Medical - moderate - high VTE Device Contraindication: N/A - Device Ordered VTE Drug Contraindication: N/A - Med Ordered
[2021-12-26 15:14] VITALS: BP 132/63; PULSE 92; RESP 18; TEMP 36.9; O2SAT 98
--- NOTE | 2021-12-26 16:50 | P.CNNE_ITS ---
History of Present Illness Data of Consult Service Date: 12/26/21 Primary Care Provider: Ford Krishnan MD [facility] Reason for consult: Dizziness 66 years old woman who came to hospital with severe dizziness. She was also having a fullness feeling in left ear and ringing in left ear. There was no fever chills. She had multiple antiemetic and dizziness type of medicine treatment and now she was feeling better. There was no associated speech language difficulty double vision numbness or paralysis. Review of Systems Review of Systems: No recent cold or flu-like illness PMFSH Past Medical History Medical History HTN (hypertension) Functional capacity: independent ambulation Surgical History Surgical History H/O: hysterectomy Social History Social History (Updated 12/24/21 @ 15:56 by Jakub Ortiz MD) Household Members: Spouse Housing: House Do you presently have visiting nurse or other home services: No Alcohol intake: never Patient Tobacco Use Status: Never used Tobacco service: No Current occupational status: retired Meds Allergies Allergy/AdvReac Type Severity Reaction Status Date / Time No Known Allergies Allergy Unverified 05/20/20 15:49 [No Known Allergies*] Active Medications: Current Medications Acetaminophen (Acetaminophen 325 Mg Tablet) 650 mg PO Q6H PRN PRN Reason: Headache Last Admin: 12/26/21 07:20 Dose: 650 mg Documented by: Amlodipine Besylate (Amlodipine Besylate 2.5 Mg Tablet) 2.5 mg PO DAILY [facility]; Protocol Last Admin: 12/26/21 07:20 Dose: 2.5 mg Documented by: Diphenhydramine HCl 25 mg/ (Sodium Chloride) 50.5 mls @ 200 mls/hr IV ONCE [facility] Last Infusion: 12/24/21 10:56 Dose: Infused Documented by: Meclizine HCl (Meclizine Hcl 25 Mg Tablet) 25 mg PO Q6H PRN PRN Reason: Vertigo Last Admin: 12/26/21 07:20 Dose: 25 mg Documented by: Ondansetron HCl (Ondansetron Hcl 4 Mg/2 Ml Vial) 4 mg IVPUSH Q8H PRN PRN Reason: Nausea and Vomiting Last Admin: 12/25/21 09:39 Dose: 4 mg Documented by: Pantoprazole Sodium (Pantoprazole Sodium 40 Mg/10 Ml Vial) 40 mg IVPUSH BID@0630,1630 [facility] Last Admin: 12/26/21 16:49 Dose: 40 mg Documented by: Pharmacy Consult (Consult Rx Perform Med Rec) 1 each MISCELLANE ONCE PRN PRN Reason: Consult order Sodium Chloride (0.9 % Sodium Chloride Flush 3 Ml Syringe) 3 ml IVFLUSH QSHIFT [facility] Last Admin: 12/26/21 16:46 Dose: 3 ml Documented by: Home Medications Medication Instructions Recorded Confirmed Last Taken Type ibuprofen 200 mg tablet 400 mg PO Q6H PRN 12/24/21 12/24/21 Unknown History Physical Exam Vital Signs: Vital Signs: Last Vital Signs Temp 98.4 F 12/26/21 15:14 Pulse 92 12/26/21 15:14 Resp 18 12/26/21 15:14 BP 132/63 12/26/21 15:14 Pulse Ox 98 12/26/21 15:14 BMI result Body Mass Index 29.7 Neuro: Other: She was alert and awake with normal spontaneity of speech fluency comprehension and affect. Pupils were round reactive to light. Extraocular muscles were intact. Visual price are full. There was few beats of right beating nystagmus with rightward gaze. Face was symmetrical. [id number] testing was normal. There was no focal weakness. Plantars were flexor. Results Labs CBC & Chem 7: 12/26/21 07:58 12/26/21 07:58 Labs: Short CBC 12/26/21 Range/Units 07:58 WBC 9.6 (4.8-10.8) X10*3/uL Hgb 8.9 L (12.0-16.0) g/dl Hct 31.5 L (37.0-47.0) % Plt Count 340 (160-400) X10*3/uL BMP 12/26/21 07:58 Sodium 140 Potassium 3.7 Chloride 100 Carbon Dioxide 33 H BUN 15 Creatinine 0.69 Calcium 9.2 MRI brain without contrast did not reveal any acute pathology. Moderate amount of chronic microvascular ischemic changes with Assessment and Plan (1) Dizziness: Status: Acute 66 years old woman with acute left ear syndrome probably labyrinth tinnitus resulting and fullness of ear ringing in ER and severe dizziness. This type of syndrome is usually viral in etiology. She said that she never had this before, which would suggested that she probably does not have Meinier's syndrome though it was a possibility. Mainstay of management is conservative and p.r.n. medications. She was already feeling better. In acute situation sometime a brief course of steroid can help Procedures Date of Service Date of Service: 12/26/21
[2021-12-26 20:00] VITALS: BP 134/72; PULSE 82; RESP 18; TEMP 36.6; O2SAT 96
[2021-12-26 23:58] VITALS: BP 150/71; PULSE 83; RESP 16; TEMP 37.3; O2SAT 96
[2021-12-27] VITALS (8 sets, daily range): BP systolic 128–160; BP diastolic 60–75; PULSE 80–95; RESP 16–18; TEMP 36.5–37.2; O2SAT 94–99
[2021-12-27] MEDS: 0.9 % Sodium Chloride Flush 3 ML SYRINGE IVFLUSH ×4 (00:11→21:34)
[2021-12-27] MEDS: Acetaminophen 325 MG TABLET 650 MG PO ×2 (00:23→06:01)
[2021-12-27] MEDS: Pantoprazole Sodium 40 MG/10 ML VIAL IVPUSH (05:55)
--- NOTE | 2021-12-27 06:03 | PC.NURSE ---
Patient reports fullness and ringing in left ear.
[2021-12-27 06:21] LABS: Hematocrit 30.2 % (37.0-47.0); Hemoglobin 8.8 g/dl (12.0-16.0); Mean Corpuscular HGB Conc 29.1 g/dl (31.0-35.0); Mean Corpuscular Volume 71.9 fL (80.0-98.0); Mean Platelet Volume 8.3 fL (9.4-12.3); Platelet Count 339 X10*3/uL (160-400); Red Cell Distribution Width 16.3 % (11.0-16.0); White Blood Count 10.5 X10*3/uL (4.8-10.8)
[2021-12-27 06:42] LABS: Anion Gap 10 (12-20); Blood Urea Nitrogen 15 mg/dL (9-16); Carbon Dioxide 33 mmol/L (22-29); Chloride 99 mmol/L (96-108); Estimated Glomerular Filt Rate > 60; Glucose Random 104 mg/dL (60-115); Potassium 3.6 mmol/L (3.3-5.1); Sodium 138 mmol/L (135-145)
[2021-12-27] MEDS: amLODIPine Besylate 2.5 MG TABLET PO (07:43)
--- NOTE | 2021-12-27 15:47 | HO.PM.IMPN ---
Subjective Subjective Date of Service: 12/27/21 Interval History: f/u Vertigo, angmia +FOBT interval history: Persistent vertigo but is getting better, no rectal bleeding Review of Systems +vertigo no melana Physical Exam Vital Signs: Vital Signs: Last Vital Signs Temp 98.4 F 12/27/21 15:14 Pulse 90 12/27/21 15:14 Resp 18 12/27/21 15:14 BP 128/73 12/27/21 15:14 Pulse Ox 98 12/27/21 15:14 BMI result Body Mass Index 29.7 Const: Other: General: AO X 3, no acute distress no nystagmus Resp: CTA bilateral CVS: S1,S2,RRR GI: +BS, NT, no distention Skin: No rash Neuro: motor grossly intact Psych: appropriate affect Objective Data Active Medications Acetaminophen (Acetaminophen 325 Mg Tablet) 650 mg PO Q6H PRN PRN Reason: Headache Last Admin: 12/27/21 06:01 Dose: 650 mg Documented by: RADHA Amlodipine Besylate (Amlodipine Besylate 2.5 Mg Tablet) 2.5 mg PO DAILY [facility]; Protocol Last Admin: 12/27/21 07:43 Dose: 2.5 mg Documented by: EH Diphenhydramine HCl 25 mg/ (Sodium Chloride) 50.5 mls @ 200 mls/hr IV ONCE [facility] Last Infusion: 12/24/21 10:56 Dose: 0 mls/hr Documented by: NADIR Meclizine HCl (Meclizine Hcl 25 Mg Tablet) 25 mg PO Q6H PRN PRN Reason: Vertigo Last Admin: 12/26/21 07:20 Dose: 25 mg Documented by: LONDON Ondansetron HCl (Ondansetron Hcl 4 Mg/2 Ml Vial) 4 mg IVPUSH Q8H PRN PRN Reason: Nausea and Vomiting Last Admin: 12/25/21 09:39 Dose: 4 mg Documented by: ZAY Pantoprazole Sodium (Pantoprazole Sodium 40 Mg/10 Ml Vial) 40 mg IVPUSH BID@0630,1630 [facility] Last Admin: 12/27/21 05:55 Dose: 40 mg Documented by: RADHA Pharmacy Consult (Consult Rx Perform Med Rec) 1 each MISCELLANE ONCE PRN PRN Reason: Consult order Sodium Chloride (0.9 % Sodium Chloride Flush 3 Ml Syringe) 3 ml IVFLUSH QSHIFT [facility] Last Admin: 12/27/21 07:53 Dose: 3 ml Documented by: EH Labs CBC & Chem 7: 12/27/21 05:54 12/27/21 05:54 Labs: Laboratory Results - last 24 hr 12/27/21 12/27/21 05:54 05:54 MCV 71.9 L MCH 21.0 L MCHC 29.1 L RDW 16.3 H Plt Count 339 MPV 8.3 L Absolute Nucleated RBC 0.000 Nucleated RBC % (auto) 0.0 Anion Gap 10 L Estim Creat Clear Calc 91.0 Estimated GFR > 60 Random Glucose 104 Calcium 9.0 Assessment and Plan (1) Dizziness: Status: Acute (2) Anemia: Status: Acute Plan 66-year-old female with vertigo and anemia. 1. Positional Vertigo with left sided tinitis CT, MR ok Neuro recommends conservative treatment and unlikely menieres 2.Microcytic anemia: Normocytic anemia with +FOBT -GI recommends EGD/Colonoscopy tomorrow 3.Hypertension:? started on Norvasc 2.5 during this stay dvt? prophyalx:? Mechanical devices due to anemia. Need for inpt: anemia w/u with colonoscopy planned tomorrow Quality Stroke Does the patient have a stroke diagnosis?: No VTE Prior VTE?: No VTE Risk Level:: Medical - moderate - high VTE Device Contraindication: N/A - Device Ordered VTE Drug Contraindication: N/A - Med Ordered
[2021-12-27] MEDS: Ondansetron ODT 4 MG TAB.RAPDIS TRANSLINGU (18:06)
[2021-12-27] MEDS: PEG 3350/Na Sulf,Bicarb,Cl/KCL 4,000 ML SOLN.RECON 4000 ML PO (18:47)
[2021-12-28] VITALS (10 sets, daily range): BP systolic 126–163; BP diastolic 55–71; PULSE 85–108; RESP 16–20; TEMP 36.8–37.8; O2SAT 92–99
[2021-12-28] MEDS: ondansetron HCL 4 MG/2 ML VIAL IVPUSH (06:36)
[2021-12-28] MEDS: amLODIPine Besylate 2.5 MG TABLET PO (07:53)
[2021-12-28] MEDS: Acetaminophen 325 MG TABLET 650 MG PO ×2 (07:54→21:03)
[2021-12-28] MEDS: Meclizine HCl 25 MG TABLET PO (07:54)
[2021-12-28] MEDS: 0.9 % Sodium Chloride Flush 3 ML SYRINGE IVFLUSH ×3 (08:01→21:04)
--- NOTE | 2021-12-28 10:00 | HO.PM.IMPN ---
Subjective Subjective Date of Service: 12/28/21 Interval History: f/u Vertigo, angmia +FOBT interval history: Vertigo is better, she still has significant ranging in the right ear Review of Systems +vertigo no melana Physical Exam Vital Signs: Vital Signs: Last Vital Signs Temp 98.4 F 12/28/21 07:33 Pulse 88 12/28/21 07:33 Resp 20 12/28/21 07:33 BP 146/70 H 12/28/21 07:33 Pulse Ox 95 12/28/21 07:33 BMI result Body Mass Index 29.7 Const: Other: General: AO X 3, no acute distress no nystagmus Resp: CTA bilateral CVS: S1,S2,RRR GI: +BS, NT, no distention Skin: No rash Neuro: motor grossly intact Psych: appropriate affect Objective Data Active Medications Acetaminophen (Acetaminophen 325 Mg Tablet) 650 mg PO Q6H PRN PRN Reason: Headache Last Admin: 12/28/21 07:54 Dose: 650 mg Documented by: LONDON Amlodipine Besylate (Amlodipine Besylate 2.5 Mg Tablet) 2.5 mg PO DAILY [facility]; Protocol Last Admin: 12/28/21 07:53 Dose: 2.5 mg Documented by: LONDON Diphenhydramine HCl 25 mg/ (Sodium Chloride) 50.5 mls @ 200 mls/hr IV ONCE [facility] Last Infusion: 12/24/21 10:56 Dose: 0 mls/hr Documented by: NADIR Meclizine HCl (Meclizine Hcl 25 Mg Tablet) 25 mg PO Q6H PRN PRN Reason: Vertigo Last Admin: 12/28/21 07:54 Dose: 25 mg Documented by: LONDON Ondansetron HCl (Ondansetron Hcl 4 Mg/2 Ml Vial) 4 mg IVPUSH Q8H PRN PRN Reason: Nausea and Vomiting Last Admin: 12/28/21 06:36 Dose: 4 mg Documented by: TYRELL Pharmacy Consult (Consult Rx Perform Med Rec) 1 each MISCELLANE ONCE PRN PRN Reason: Consult order Sodium Chloride (0.9 % Sodium Chloride Flush 3 Ml Syringe) 3 ml IVFLUSH QSHIFT [facility] Last Admin: 12/28/21 08:01 Dose: 3 ml Documented by: LONDON Labs CBC & Chem 7: 12/27/21 05:54 12/27/21 05:54 Assessment and Plan (1) Dizziness: Status: Acute (2) Anemia: Status: Acute Plan 66-year-old female with vertigo and anemia. 1. Positional Vertigo with left sided tinitis CT, MR [place] Neuro recommends conservative treatment and unlikely menieres 2.Microcytic anemia: Normocytic anemia with +FOBT -GI recommends EGD/Colonoscopy today 3.Hypertension:? started on Norvasc 2.5 during this stay dvt? prophyalx:? Mechanical devices due to anemia. Need for inpt: anemia w/u with colonoscopy planned today Quality Stroke Does the patient have a stroke diagnosis?: No VTE Prior VTE?: No VTE Risk Level:: Medical - moderate - high VTE Device Contraindication: N/A - Device Ordered VTE Drug Contraindication: N/A - Med Ordered
--- NOTE | 2021-12-28 11:45 | MHC.CM.PN ---
EGD TODAY. PLAN IS FOR DC HOME TOMORROW 12/29/21
--- NOTE | 2021-12-28 14:07 | HO.ANESPROP2 ---
[facility] Active Problems Active Problems: All Active Problems (Updated 12/24/21 @ 13:57 by Norm Max MD) Dizziness (Acute) Anemia (Acute) Past Medical History Medical History HTN (hypertension) Functional capacity: independent ambulation Family History Family history of problems with anesthesia: No Surgical History Surgical History H/O: hysterectomy History of Problems with Anesthesia: No Social History Social History (Updated 12/24/21 @ 15:56 by Jakub Ortiz MD) Household Members: Spouse Housing: House Do you presently have visiting nurse or other home services: No Alcohol intake: never Patient Tobacco Use Status: Never used Tobacco service: No Current occupational status: retired [employer] Allergies Allergy/AdvReac Type Severity Reaction Status Date / Time No Known Allergies Allergy Unverified 05/20/20 15:49 [No Known Allergies*] Active Medications: Current Medications Acetaminophen (Acetaminophen 325 Mg Tablet) 650 mg PO Q6H PRN PRN Reason: Headache Last Admin: 12/28/21 07:54 Dose: 650 mg Documented by: Amlodipine Besylate (Amlodipine Besylate 2.5 Mg Tablet) 2.5 mg PO DAILY MICHELLE; Protocol Last Admin: 12/28/21 07:53 Dose: 2.5 mg Documented by: Diphenhydramine HCl 25 mg/ (Sodium Chloride) 50.5 mls @ 200 mls/hr IV ONCE MICHELLE Last Infusion: 12/24/21 10:56 Dose: Infused Documented by: Lactated Ringer's (Lr) 1,000 mls @ 50 mls/hr IVCONT .Q20H MICHELLE Meclizine HCl (Meclizine Hcl 25 Mg Tablet) 25 mg PO Q6H PRN PRN Reason: Vertigo Last Admin: 12/28/21 07:54 Dose: 25 mg Documented by: Ondansetron HCl (Ondansetron Hcl 4 Mg/2 Ml Vial) 4 mg IVPUSH Q8H PRN PRN Reason: Nausea and Vomiting Last Admin: 12/28/21 06:36 Dose: 4 mg Documented by: Pharmacy Consult (Consult Rx Perform Med Rec) 1 each MISCELLANE ONCE PRN PRN Reason: Consult order Sodium Chloride (0.9 % Sodium Chloride Flush 3 Ml Syringe) 3 ml IVFLUSH QSHIFT MICHELLE Last Admin: 12/28/21 08:01 Dose: 3 ml Documented by: Home Medications Medication Instructions Recorded Confirmed Last Taken Type ibuprofen 200 mg tablet 400 mg PO Q6H PRN 12/24/21 12/24/21 Unknown History Exam Exam Date and Time: December 28, 2021 1407 Height,Weight and Vital Signs: Height 5 ft 5 in Weight 81.193 kg Last Vital Signs Temp 98.2 F 12/28/21 11:06 Pulse 85 12/28/21 11:06 Resp 20 12/28/21 11:06 BP 145/64 H 12/28/21 11:06 Pulse Ox 94 12/28/21 11:06 Pertinent Lab Results Pertinent Lab Results: Laboratory Tests 12/24/21 12/24/21 12/24/21 09:08 09:08 09:08 WBC 9.0 RBC 4.26 Hgb 8.8 L Hct 30.7 L MCV 72.1 L MCH 20.7 L MCHC 28.7 L RDW 16.5 H Plt Count 369 MPV 8.1 L Immature Gran % (Auto) 0.8 H Neut % (Auto) 82.6 H Lymph % (Auto) 11.[address] [place] % (Auto) 4.7 Eos % (Auto) 0.6 Baso % (Auto) 0.3 Lymph # (Auto) 1.[address] [place] # (Auto) 0.4 Eos # (Auto) 0.1 Baso # (Auto) 0.0 Abs Immat Gran (auto) 0.07 H Absolute Neuts (auto) 7.4 Absolute Nucleated RBC 0.000 Nucleated RBC % (auto) 0.0 PT 14.2 H INR 1.2 H Sodium 139 Potassium 3.7 Chloride 103 Carbon Dioxide 27 Anion Gap 13 BUN 10 Creatinine 0.60 Estim Creat Clear Calc 97.1 Estimated GFR > 60 Random Glucose 124 H Calcium 9.2 Iron 20 L TIBC 352 % Saturation 6 L Unsat Iron Binding 332 Ferritin 9 L Total Bilirubin 0.7 AST 9 ALT < 6 Alkaline Phosphatase 65 Troponin I High Sens Total Protein 7.2 Albumin 3.6 Vitamin B12 Folate Stool Occult Blood COVID-19 (MARY) COVID-19 Clin Com 12/24/21 12/24/21 12/24/21 09:08 09:08 14:09 WBC RBC Hgb Hct MCV MCH MCHC RDW Plt Count MPV Immature Gran % (Auto) Neut % (Auto) Lymph % (Auto) [place] % (Auto) Eos % (Auto) Baso % (Auto) Lymph # (Auto) [place] # (Auto) Eos # (Auto) Baso # (Auto) Abs Immat Gran (auto) Absolute Neuts (auto) Absolute Nucleated RBC Nucleated RBC % (auto) PT INR Sodium Potassium Chloride Carbon Dioxide Anion Gap BUN Creatinine Estim Creat Clear Calc Estimated GFR Random Glucose Calcium Iron TIBC % Saturation Unsat Iron Binding Ferritin Total Bilirubin AST ALT Alkaline Phosphatase Troponin I High Sens < 3.5 Total Protein Albumin Vitamin B12 330 Folate 9.6 Stool Occult Blood COVID-19 (MARY) Negative COVID-19 Clin Com See Note 12/24/21 12/25/21 12/25/21 14:42 05:44 05:44 WBC 13.5 H RBC 4.18 L Hgb 8.6 L Hct 30.0 L MCV 71.8 L MCH 20.6 L MCHC 28.7 L RDW 16.3 H Plt Count 397 MPV 8.4 L Immature Gran % (Auto) Neut % (Auto) Lymph % (Auto) [place] % (Auto) Eos % (Auto) Baso % (Auto) Lymph # (Auto) [place] # (Auto) Eos # (Auto) Baso # (Auto) Abs Immat Gran (auto) Absolute Neuts (auto) Absolute Nucleated RBC 0.000 Nucleated RBC % (auto) 0.0 PT INR Sodium 139 Potassium 3.8 Chloride 103 Carbon Dioxide 29 Anion Gap 11 L BUN 10 Creatinine 0.57 Estim Creat Clear Calc 102.2 Estimated GFR > 60 Random Glucose 106 Calcium 9.3 Iron TIBC % Saturation Unsat Iron Binding Ferritin Total Bilirubin AST ALT Alkaline Phosphatase Troponin I High Sens Total Protein Albumin Vitamin B12 Folate Stool Occult Blood POSITIVE COVID-19 (MARY) COVID-19 Clin Com 12/26/21 12/26/21 12/27/21 07:58 07:58 05:54 WBC 9.6 10.5 RBC 4.29 4.20 Hgb 8.9 L 8.8 L Hct 31.5 L 30.2 L MCV 73.4 L 71.9 L MCH 20.7 L 21.0 L MCHC 28.3 L 29.1 L RDW 16.4 H 16.3 H Plt Count 340 339 MPV 8.7 L 8.3 L Immature Gran % (Auto) Neut % (Auto) Lymph % (Auto) [place] % (Auto) Eos % (Auto) Baso % (Auto) Lymph # (Auto) [place] # (Auto) Eos # (Auto) Baso # (Auto) Abs Immat Gran (auto) Absolute Neuts (auto) Absolute Nucleated RBC 0.000 0.000 Nucleated RBC % (auto) 0.0 0.0 PT INR Sodium 140 Potassium 3.7 Chloride 100 Carbon Dioxide 33 H Anion Gap 11 L BUN 15 Creatinine 0.69 Estim Creat Clear Calc 84.4 Estimated GFR > 60 Random Glucose 99 Calcium 9.2 Iron TIBC % Saturation Unsat Iron Binding Ferritin Total Bilirubin AST ALT Alkaline Phosphatase Troponin I High Sens Total Protein Albumin Vitamin B12 Folate Stool Occult Blood COVID-19 (MARY) [employer] 12/27/21 05:54 WBC RBC Hgb Hct MCV MCH MCHC RDW Plt Count MPV Immature Gran % (Auto) Neut % (Auto) Lymph % (Auto) [place] % (Auto) Eos % (Auto) Baso % (Auto) Lymph # (Auto) [place] # (Auto) Eos # (Auto) Baso # (Auto) Abs Immat Gran (auto) Absolute Neuts (auto) Absolute Nucleated RBC Nucleated RBC % (auto) PT INR Sodium 138 Potassium 3.6 Chloride 99 Carbon Dioxide 33 H Anion Gap 10 L BUN 15 Creatinine 0.64 Estim Creat Clear Calc 91.0 Estimated GFR > 60 Random Glucose 104 Calcium 9.0 Iron TIBC % Saturation Unsat Iron Binding Ferritin Total Bilirubin AST ALT Alkaline Phosphatase Troponin I High Sens Total Protein Albumin Vitamin B12 Folate Stool Occult Blood COVID-19 (MARY) COVID-19 Clin Com Airway Mallampati Class: II (Nothing loose) TM Dist: >3cm Neck ROM: Full Heart: rrr Lungs: cta status post neb treatment Assessment and Plan Assessment Anesthesia Assessment: Anesthesia Plan Discussed and Chart Reviewed Final Anesthetic Review Family History of Problems with Anesthesia: No History of Problems with Anesthesia: No NPO: Yes ASA Class: III Final Preanesthetic Review: No Changes in Pt Med Stat, Meds/Allgs Chart Reviewed and Consent Obtained/Reviewed Patient Risk: Intermediate Procedure Risk: Intermediate Anesthetic Plan Anesthetic Plan: MAC: Disposition: Standard PACU
[2021-12-28] MEDS: Albuterol Sulfate (0.083%) 2.5 MG/3 ML VIAL.NEB INHALE (14:26)
--- NOTE | 2021-12-28 15:30 | PM.OP ---
Brief Operative Note Date of Service: 12/28/21 Pre-op diagnosis: anemia Post-op diagnosis: same Procedure: see op note Surgeon: Jakub Ortiz MD Anesthesia: MAC Was an Rib Cloth Knitter used for this Procedure?: No Estimated blood loss (mL): 0 Condition: stable Disposition: PACU
--- NOTE | 2021-12-28 15:56 | W.PM.OPN ---
Operative Note Operative Note Date of Service: 12/28/21 Narrative: Operative Information Procedure Description: EGD, Colonoscopy Indication: anemia Anesthesia: MAC FLEXIBLE TRANSORAL UPPER GASTROINTESTINAL ENDOSCOPY AND COLONOSCOPY PROCEDURE NOTE UPPER ENDOSCOPY Consent: Indications for the procedure and potential complications of bleeding, perforation, reaction to medications and missed diagnosis were discussed with the patient and informed consent was obtained. Instrument: Olympus GIF H 190 J mid size upper endoscope Monitoring: Vital signs and clinical assessment, continuous EKG monitoring, Pulse oximetry, Carbon Dioxide monitoring and blood pressure monitoring were done throughout the procedure. Procedure: The patient was placed in the left lateral decubitis position and pre-procedure medications were administered and a bite block was placed. The endoscope was inserted into the mouth and advanced under direct vision to the third part of duodenum. A careful inspection was made as the upper endoscope was withdrawn including a retroflexed examination of the proximal stomach; Findings and interventions are described below. Findings: Larynx:normal Esophagus: GE junction at 40 cm, diaphragm hiatus at 40 cm, mild esophagitis Stomach: Normal mucosa. Biopsies were obtained. Grade 2 flap valve on retroflexed examination of the cardia. Duodenum: Normal bulb and descending duodenum, bx were taken Intervention: Biopsies as noted above COLONOSCOPY Instrument: Olympus variable stiffness pediatric scope 190L Colonoscopy Monitoring: Vital signs and clinical assessment, continuous EKG monitoring, Pulse oximetry, Carbon Dioxide monitoring and blood pressure monitoring were done throughout the procedure. Colon withdrawal time was 8 minutes. Procedure: The patient was placed in the left lateral decubitis position and pre-procedure medications were administered. After a digital rectal examination of the ano-rectum, the video colonoscope was inserted into the rectum and advanced through the colon to the cecum/TI. The colonoscope was slowly withdrawn in a retrograde panoramic fashion and the colon mucosa was carefully examined including a retroflexed view of the rectum. Findings and interventions are described below. Procedure Difficulty: easy Findings: Terminal Ileum-normal, bx taken Cecum:normal, bx taken Ascending Colon: normal, bx taken Transverse Colon -normal Descending Colon:normal Sigmoid Colon: intense erythema with micro abscesses, edema and inflammation, bx taken Rectum: intense erythema with micro abscesses, edema and inflammation confluent with sigmoid, bx taken Anorectum - normal Colon preparation: [place] Bowel Preparation Scale Right colon; 2 Transverse colon: 2 Left colon; 2 (0 = Unprepared colon segment with mucosa not seen due to solid stool that cannot be cleared. 1 = Portion of mucosa of the colon segment seen, but other areas of the colon segment not well seen due to staining, residual stool and/or opaque liquid. 2 = Minor amount of residual staining, small fragments of stool and/or opaque liquid, but mucosa of colon segment seen well. 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
[2021-12-28] MEDS: Lactated Ringers 1,000 ML 50 ML IVCONT (17:00)
[2021-12-28] MEDS: Benzonatate 100 MG CAPSULE PO (21:03)
[2021-12-29] VITALS (8 sets, daily range): BP systolic 111–160; BP diastolic 55–74; PULSE 73–98; RESP 17–20; TEMP 36.2–37.6; O2SAT 91–97
--- NOTE | 2021-12-29 07:22 | HO.POSTANES ---
Post Anesthesia Evaluation Post Anesthesia Evaluation Vital Signs: Vital Signs Temp Pulse Resp BP Pulse Ox 12/29/21 03:53 97.8 F 73 18 111/55 L 97 12/29/21 00:00 97.3 F 93 18 150/67 H 97 Anesthesia: Monitored Mental Status: Awake Pain Control: Satisfactory Nausea/Vomiting: None Hydration: Adequate Anesthesia-Related Issues: No Anes. Related Issues
[2021-12-29] MEDS: 0.9 % Sodium Chloride Flush 3 ML SYRINGE IVFLUSH ×2 (09:01→15:20)
[2021-12-29] MEDS: Mesalamine 400 MG CAP.DRTAB. 800 MG PO ×3 (09:01→21:54)
[2021-12-29] MEDS: amLODIPine Besylate 2.5 MG TABLET PO (09:01)
--- NOTE | 2021-12-29 09:11 | P.PNIM_ITS ---
Subjective Subjective Date of Service: 12/29/21 Interval History: f/u Vertigo, angmia +FOBT interval history: Vertigo and ringing in the ears are better. She has cough with no sputum Review of Systems +vertigo cough, no fever, Physical Exam Vital Signs: Vital Signs: Last Vital Signs Temp 99.4 F 12/29/21 07:34 Pulse 98 12/29/21 07:34 Resp 20 12/29/21 07:34 BP 147/70 H 12/29/21 07:34 Pulse Ox 91 L 12/29/21 07:34 BMI result Body Mass Index 29.7 Const: Other: General: AO X 3, no acute distress no nystagmus Resp: rhonchi CVS: S1,S2,RRR GI: +BS, NT, no distention Skin: No rash Neuro: motor grossly intact Psych: appropriate affect Objective Data Active Medications Acetaminophen (Acetaminophen 325 Mg Tablet) 650 mg PO Q6H PRN PRN Reason: Headache Last Admin: 12/28/21 21:03 Dose: 650 mg Documented by: TYRELL Albuterol Sulfate (Albuterol Sulfate (0.083%) 2.5 Mg/3 Ml Vial.Neb) 2.5 mg INHALE ONCE PRN PRN Reason: Shortness of Breath/Wheezing Last Admin: 12/28/21 14:26 Dose: 2.5 mg Documented by: RUBY Amlodipine Besylate (Amlodipine Besylate 2.5 Mg Tablet) 2.5 mg PO DAILY MICHELLE; Protocol Last Admin: 12/29/21 09:01 Dose: 2.5 mg Documented by: MARQUISE Benzonatate (Benzonatate 100 Mg Capsule) 100 mg PO TID PRN PRN Reason: Cough Last Admin: 12/28/21 21:03 Dose: 100 mg Documented by: TYRELL Diphenhydramine HCl 25 mg/ (Sodium Chloride) 50.5 mls @ 200 mls/hr IV ONCE MICHELLE Last Infusion: 12/24/21 10:56 Dose: 0 mls/hr Documented by: NADIR Lactated Ringer's (Lr) 1,000 mls @ 50 mls/hr IVCONT .Q20H MICHELLE Last Admin: 12/28/21 17:00 Dose: 50 mls/hr Documented by: EH Meclizine HCl (Meclizine Hcl 25 Mg Tablet) 25 mg PO Q6H PRN PRN Reason: Vertigo Last Admin: 12/28/21 07:54 Dose: 25 mg Documented by: [place] Mesalamine (Mesalamine 400 Mg Cap.Drtab.) 800 mg PO TID [facility] Last Admin: 12/29/21 09:01 Dose: 800 mg Documented by: MARQUISE Ondansetron HCl (Ondansetron Hcl 4 Mg/2 Ml Vial) 4 mg IVPUSH Q8H PRN PRN Reason: Nausea and Vomiting Last Admin: 12/28/21 06:36 Dose: 4 mg Documented by: TYRELL Pharmacy Consult (Consult Rx Perform Med Rec) 1 each MISCELLANE ONCE PRN PRN Reason: Consult order Pramoxine HCl (Pramoxine Hcl 1 % Rectal Foam 15 Gm) 1 appl PA BID MICHELLE Sodium Chloride (0.9 % Sodium Chloride Flush 3 Ml Syringe) 3 ml IVFLUSH QSHIFT [facility] Last Admin: 12/29/21 09:01 Dose: 3 ml Documented by: MARQUISE Labs CBC & Chem 7: 12/27/21 05:54 12/27/21 05:54 Assessment and Plan (1) Dizziness: Status: Acute (2) Anemia: Status: Acute Plan 66-year-old female with vertigo and anemia. 1. 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 started on Norvasc 2.5 during this stay 4. Cough--CXR dvt? prophyalx:? Mechanical devices due to anemia. Need for inpt: anemia w/u with colonoscopy planned today Need for inpatient: New cough, testing with CXR and if no indication for IV Abx, will discharge home today Quality Stroke Does the patient have a stroke diagnosis?: No VTE Prior VTE?: No VTE Risk Level:: Medical - moderate - high VTE Device Contraindication: N/A - Device Ordered VTE Drug Contraindication: N/A - Med Ordered
[2021-12-29] MEDS: Acetaminophen 325 MG TABLET 650 MG PO ×2 (09:16→18:24)
--- NOTE | 2021-12-29 11:23 | MHC.CM.PN ---
Addendum entered by Argenis Gilmore 12/30/21 10:01: PLAN WAS FOR DISCHARGE HOME ON 12/29 PATIENT STAYED ONE MORE NIGHT. HOME TODAY WITH NO SERVICES Original Note: HOME TODAY - SELF CARE RN AWARE OF PLAN.
[2021-12-29] MEDS: Benzonatate 100 MG CAPSULE PO (15:20)
[2021-12-29] MEDS: Pramoxine HCl 1 % Rectal Foam 15 GM 1 APPL PR (21:53)
[2021-12-30] MEDS: 0.9 % Sodium Chloride Flush 3 ML SYRINGE IVFLUSH ×2 (01:33→09:14)
[2021-12-30] MEDS: Benzonatate 100 MG CAPSULE PO (01:33)
[2021-12-30 03:46] VITALS: BP 138/71; PULSE 88; RESP 20; TEMP 36.6; O2SAT 96
--- NOTE | 2021-12-30 07:57 | P.DS_ITS ---
DS: Providers Provider Date of Service: 12/30/21 Date of admission: 12/24/21 14:26 Primary care physician: Ford Krishnan MD Consults: 12/25/21 10:05 Consult to Neurology Routine Consulting Provider: [facility] Reason for consultation: severe dizziness /vertigao-possible BPPV Has provider been notified: No DS: Diagnosis Discharge Diagnosis (1) Dizziness: Status: Acute DS: Summary Hospital Course Hospital Course: Chief Complaint: vertiago, anemia 66-year-old female with past medical history of hypertension-coming to the hospital because of having episode of dizziness and spinning sensation at home.? She says that she had similar sensation 2 weeks ago which subsided spontaneously but this time she was having severe dizziness and and room spinning sensation, nausea and vomiting multiple times at home-so decided to come to the hospital.? She also had tinnitus.? Patient says that she gets very dizzy with little movement of her head. In addition patient was found to have anemia in blood work-further ED physician says that occult blood was positive. Patient says that she has invariably occasionally dark stools but more brownish also occasionally noticed red blood with stool. Patient denies any abdominal pain or any change in bowel habits for dysphagia. For patiently has heartburn for which she uses Tums. She also uses ibuprofen daily as per patient. Patient has medical history of hypertension was on blood pressure medication but a year ago she has stopped blood pressure medication on her own, she says then she did not went to her PCP afterwards so she is off any blood pressure medications. Currently she feels nauseated, no vomiting so far but feels very dizzy. Concern to walk since feels everything spinning. Past medical history:? Hypertension Past surgical history she had colonoscopy in 2017-found to have diverticulosis, internal hemorrhoids.? Never had EGD. Social history: Lives with her , denies any smoking or recreational drug use or ETOH use. Independent ADLs Denies any new complaint of chest pain or shortness of breath or abdominal pain or fever or chills or blurred vision. Denies any cough Denies any weakness or numbness. hospital course 1.Positional Vertigo: negative work up including CT of the head and MRI of the head. Neurology recommend conservative management. Overall feels better with meclizine. This may have been precipitated by labyrinthitis of the left ear and also causing ringing there. She is expected to recover full in not should seek ENT evaluation on outpatient basis--discussed with her 2.Microcytic anemia with positive occult blood, last colonoscopy in 2017 was noted for diverticulosis. Patient takes ibuprofen on consistent basis. She underwent EGD and Colonocopy by Dr. 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 commence mesalamine PO TID e.g 800 mg and mesalamine enema e.g Rowasa daily Pathology pending 3.Hypertension:?Norvasc 2.5 mg started on will continue upon discharge Time Spent with Patient Time attestation: Total time spent providing and/or coordinating discharge services: Discharge coordination time: Greater than 30 minutes Quality: Safe Use of Opioids Does Pt have an Active Cancer Diagnosis on the Problem List?: No Quality: Stroke Does the patient have a stroke diagnosis?: No Physical Exam Vital Signs: Vital Signs: Selected Entries 12/30/21 03:46 Temperature 97.8 F Pulse Rate 88 Respiratory Rate 20 Blood Pressure 138/71 Pulse Oximetry 96 Oxygen Delivery Me thod Room Air General: AO X 3, no acute distress HEENT--no nystagmus Resp: CTA bilateral CVS: S1,S2,RRR GI: +BS, NT, no distention Skin: No rash Neuro: motor grossly intact Psych: appropriate affect DS: Data Data Completed and Pending Labs on day of discharge: Laboratory Results - last 24 hr 12/27/21 12/27/21 05:54 05:54 WBC 10.5 RBC 4.20 Hgb 8.8 L Hct 30.2 L MCV 71.9 L MCH 21.0 L MCHC 29.1 L RDW 16.3 H Plt Count 339 MPV 8.3 L Absolute Nucleated RBC 0.000 Nucleated RBC % (auto) 0.0 Sodium 138 Potassium 3.6 Chloride 99 Carbon Dioxide 33 H Anion Gap 10 L BUN 15 Creatinine 0.64 Estim Creat Clear Calc 91.0 Estimated GFR > 60 Random Glucose 104 Calcium 9.0 Discharge Plan Discharge Anticipated Discharge Date/Time: 12/30/21 07:47 Patient Disposition: Home, Self-Care Discharge Diagnosis: Vertigo, anemia, GIB Referrals: Jakub Ortiz MD [Physician] - 2 Weeks Ford Krishnan MD [Primary Care Provider] - 1 Week Desmond Crawford MD [Physician] - 1 Week Discharge Medications: New amlodipine 2.5 mg Tablet 2.5 mg PO DAILY Qty: 30 0RF Protocol: Hold for SBP< HOLD for SBP < : 90 meclizine 25 mg Tablet 25 mg PO Q6H PRN (Reason: Vertigo) Qty: 28 0RF mesalamine [Delzicol] 400 mg Capsule (With Del Rel Tablets) 800 mg PO TID Qty: 90 0RF mesalamine [Rowasa] 4 gram/60 mL enema 4 g [place] BEDTIME Qty: 420 0RF Continued ibuprofen 200 mg Tablet 400 mg PO Q6H PRN (Reason: Back Pain) 0RF Discharge Orders: Discharge Order (Routine); Ordered 12/30/21 Ordered By: Desmond Crawford Diet: advance to usual diet Activity on Discharge: As tolerated Stand Alone Forms: Patient Portal Discharge page Care Plan Goals: Full recovery from Dizziness and Vertigo Health Concerns: Positional Vertigo Plan of Treatment: Take meclizine as recommended, follow-up with her primary care doctor within a week. Call for appointment. Take Mesalamine and Rowsa enema for inflamation in the colon Assessment: As above
[2021-12-30 08:00] VITALS: BP 137/88; PULSE 91; RESP 17; TEMP 36.2; O2SAT 92
[2021-12-30 08:59] VITALS: BP 137/88; PULSE 91; O2SAT 92
[2021-12-30] MEDS: amLODIPine Besylate 2.5 MG TABLET PO (09:13)
[2021-12-30] MEDS: Mesalamine 400 MG CAP.DRTAB. 800 MG PO (09:13)
[2021-12-30 12:00] VITALS: BP 126/73; PULSE 80; RESP 17; TEMP 36.4; O2SAT 94
== END 2021-12-30 13:17 | disposition home or self-care (01) | DRG 387 ==
LOC: HO.ED 14:03 → HO.EDOVER 14:30 → HO.S3 15:46
PROVIDERS: Internal Medicine Gastroenterology; Admitting Provider Internal Medicine; Emergency Provider Emergency Medicine; PCP Internal Medicine; Visit Provider Internal Medicine
PROC: 0DB78ZX Excision of Stomach, Pylorus, Via Natural or Artificial Opening Endoscopic, Diagnostic (ICD-10-PCS; principal; 2021-12-28 14:30)
DX: K51.314 Ulcerative (chronic) rectosigmoiditis with abscess (principal); I10 Essential (primary) hypertension; R19.5 Other fecal abnormalities; K20.90 Esophagitis, unspecified without bleeding; D50.0 Iron deficiency anemia secondary to blood loss (chronic); T39.395A Adverse effect of other nonsteroidal anti-inflammatory drugs [NSAID], initial encounter; H81.10 Benign paroxysmal vertigo, unspecified ear; H93.12 Tinnitus, left ear; Z20.822 Contact with and (suspected) exposure to COVID-19; Z79.899 Other long term (current) drug therapy
CPT/HCPCS: 36415; 70450; 70551; 71046; 80048; 80053; 82272; 82607; 82728; 82746; 83540; 84484; 85025; 85027; 85610; 87635; 88305; 88342; 93005; 96361; 96374; 96375; 97110; 97116; 97162; 97166; 97535; 99218; 99285; J1200; J2405; J2765

== ENCOUNTER 2022-01-04 10:54 | Outpatient (REF) | payer MEDICARE, SELFPAY ==
[2022-01-04 13:44] LABS: Basophils Percent Auto 0.2 % (0-2); Eosinophils Absolute Auto 0.1 X10*3/uL (0.0-0.4); Eosinophils Percent Auto 1.5 % (0-4); Hematocrit 33.7 % (37.0-47.0); Hemoglobin 9.4 g/dl (12.0-16.0); Imm Gran Abs Auto 0.02 X10*3/uL (0.00-0.03); Imm Gran Pct Auto 0.2 % (0.0-0.4); Lymphocytes Percent Auto 24.9 % (20-40); MANUAL DIFF FLAG SCAN; Mean Corpuscular HGB Conc 27.9 g/dl (31.0-35.0); Mean Corpuscular Hemoglobin 20.5 pg (27.0-33.0); Mean Corpuscular Volume 73.6 fL (80.0-98.0); Mean Platelet Volume 9.4 fL (9.4-12.3); Monocytes Absolute Auto 0.7 X10*3/uL (0.1-1.2); Monocytes Percent Auto 8.7 % (2-11); Neutrophils Absolute Auto 5.3 x10*3/uL (2.0-8.3); Neutrophils Percent Auto 64.5 % (45-73); Platelet Count 310 X10*3/uL (160-400); Red Blood Count 4.58 X10*6/uL (4.20-5.50); Red Cell Distribution Width 16.5 % (11.0-16.0); SCAN SMEAR FLAG 1; White Blood Count 8.2 X10*3/uL (4.8-10.8)
[2022-01-04 13:57] LABS: Alanine Aminotransferase 8 U/L (0-31); Albumin Level 3.7 g/dL (3.5-5.0); Alkaline Phosphatase 58 U/L (39-117); Anion Gap 13 (12-20); Aspartate Amino Transferase 11 U/L (5-31); Bilirubin Total 0.4 mg/dL (0.0-1.0); Blood Urea Nitrogen 8 mg/dL (9-16); Calcium 9.2 mg/dL (8.4-10.2); Carbon Dioxide 31 mmol/L (22-29); Chloride 99 mmol/L (96-108); Estimated Glomerular Filt Rate > 60; Glucose Random 104 mg/dL (60-115); Iron 12 mcg/dL (30-160); Percent Iron Saturation 4 % (15-50); Potassium 2.7 mmol/L (3.3-5.1); Sodium 140 mmol/L (135-145); Total Iron Binding Capacity 331 mcg/dL (228-428); Total Protein 7.5 g/dL (6.5-8.0); Unsaturated Iron Binding 319 ug/dL
[2022-01-04 14:04] LABS: SLIDE REVIEW VERIFIED
[2022-01-04 14:21] LABS: Ferritin 24 ng/mL (10-250); TSH reflex Free T4 0.46 uIU/mL (0.32-4.0)
== END 2022-01-04 10:55 | disposition home or self-care (01) ==
LOC: HO.HMGCLDS 10:54
PROVIDERS: PCP Internal Medicine; Visit Provider Internal Medicine
DX: Z13.89 Encounter for screening for other disorder (principal)
CPT/HCPCS: 36415; 80053; 82728; 83540; 84443; 85025

== ENCOUNTER 2022-01-04 14:53 | Emergency (ER) | payer MEDICARE, SELFPAY ==
--- NOTE | 2022-01-04 | ECG_ITS ---
Test Reason : low K Blood Pressure : / mmHG Vent. Rate : 093 BPM Atrial Rate : 093 BPM P-R Int : 172 ms QRS Dur : 088 ms QT Int : 362 ms P-R-T Axes : 030 -04 047 degrees QTc Int : 450 ms Normal sinus rhythm Nonspecific ST abnormality Abnormal ECG When compared with ECG of 24-DEC-2021 09:37, No significant change was found Referred By: Generic ED Physician Electronically Signed By:Frederick Snider
[2022-01-04 15:43] VITALS: BP 155/70; PULSE 100; RESP 18; TEMP 36.8; O2SAT 96; BMI 30.3
[2022-01-04 16:51] VITALS: BP 148/66; PULSE 89; RESP 14; TEMP 37.1; O2SAT 97
--- NOTE | 2022-01-04 16:51 | ED.GENADULT ---
HPI - General Adult General Chief complaint: Recheck/Abnormal Lab/Rx Stated complaint: abnormal labs Time Seen by Provider: 01/04/22 16:45 Source: patient Mode of arrival: ambulatory Limitations: no limitations History of Present Illness HPI narrative: Patient comes to the emergency room, sent here by her primary care physician. Patient was discharged from the hospital on December 30, patient was here for vertigo, anemia and proctosigmoiditis. Patient had lab work done today, patient's potassium is 2.7. Patient is asymptomatic, states she is recovering well from the above-mentioned admission. Patient denies abdominal pain, no diarrhea, no blood in the stool, no vertigo. Related Data Previous Rx's Medication Instructions Recorded amlodipine 5 mg tablet 5 mg PO DAILY 90 Days #90 tab 01/04/22 ferrous sulfate 324 mg (65 mg 324 mg PO BID 90 Days #180 tab 01/04/22 iron) tablet,delayed release meclizine 25 mg tablet 25 mg PO Q6H PRN 30 Days #90 tab 01/04/22 mesalamine 4 gram/60 mL enema 4 g (60 mL) CO BEDTIME 14 Days 01/04/22 (Rowasa) #840 ml mesalamine 400 mg capsule (with 800 mg PO TID 90 Days #540 ea 01/04/22 delayed release tablets inside) (Delzicol) Allergies Allergy/AdvReac Type Severity Reaction Status Date / Time No Known Allergies Allergy Verified 01/04/22 15:46 [No Known Allergies*] Review of Systems Review of Systems: Constitutional : No Weight loss, No Fever, No Chills, No Night Sweats, No Fatigue, No Malaise ENT/Mouth : No Hearing loss, No Ear Pain, No Nasal Congestion, No Sinus Pain, No Hoarseness, No sore throat, No Rhinorrhea, No Swallowing Difficulty Eyes: No Eye Pain, No Swelling, No Redness, No Foreign Body, No Discharge, No Vision Changes Cardiovascular : No Chest Pain, No SOB, No Dyspnea on Exertion, No Orthopnea, No Edema, No Palpitations Respiratory : No Cough, No Sputum, No Wheezing, No Smoke Exposure, No Dyspnea Gastrointestinal : No Nausea, No Vomiting, No Diarrhea, No Constipation, No abdominal Pain, No Hematochezia, No Melena Genitourinary : no irregular bleeding, No Dysuria, No Urinary Frequency, No Hematuria, No Urinary Incontinence, No Urgency, No Flank Pain, No Urinary Flow Changes, No Hesitancy Musculoskeletal : No joint pain, No Myalgias, No Joint Swelling Skin : No Skin Lesions, No rash Neuro : No Weakness, No Numbness, No Paresthesias, No Loss of Consciousness, No Dizziness, No Headache Psych : No Anxiety/Panic, No Depression, No SI/HI/AH/VH, No Social Issues, Heme/Lymph: No Bruising, No Bleeding,No Lymphadenopathy Endocrine : No Polyuria, No Polydipsia, No Temperature Intolerance [facility] Past Medical History Medical History Colitis HTN (hypertension) Surgical History H/O: hysterectomy Social History Social History Household Members: Spouse Housing: House Do you presently have visiting nurse or other home services: No Alcohol intake: never Patient Tobacco Use Status: Never used Tobacco e-Cigarette/Vaping Use: Never Used Use of substances other than those prescribed or required for medical reasons: No Advance Directives: No Advance Directives Information Provided: No service: No Current occupational status: retired Cognitive needs: No Hearing needs: No Vision needs: Yes Physical Exam ED Vital Signs: Vital Signs - 24 hr 01/04/22 15:43 01/04/22 16:51 Temperature 98.3 F 98.7 F Pulse Rate 100 89 Respiratory Rate 18 14 Blood Pressure 155/70 H 148/66 H Pulse Oximetry 96 97 BMI result Body Mass Index 30.3 Const Other: Appearance: Alert. Oriented X3. No acute distress. Eyes: Pupils equal, round and reactive to light. ENT: Pharynx normal. Neck: Normal inspection. Neck supple. No lymph nodes noted. No crepitus CVS: Normal heart rate and rhythm. Pulses normal. Normal S1 and S2 Respiratory: No respiratory distress. Breath sounds normal. No Wheezing. No rales Abdomen: Soft and nontender. No rigidity. No distention. Skin: Skin warm and dry. Normal skin color. Normal skin turgor. Extremities: No lower extremity edema. No Lacerations. No Rash Neuro: Oriented X 3. No motor deficit. No sensory deficit. Moving all extremities. No slurred speech. CN 2 through 12 grossly intact Psych: calm, cooperative, normal affect Course Course Course Narrative: We will repeat patient's potassium. It will likely still be low. Patient will receive p.o. potassium and then will repeat the levels again, patient agrees with plan Patient was given 80 mEq of p.o. potassium. Patient remains asymptomatic. Patient's potassium improved to 3.5. Patient is to follow-up with her primary care physician, for lab repeat Medical Decision Making Lab Data Result diagrams: 01/04/22 18:22 Labs: Lab Results 01/04/22 01/04/22 Range/Units 17:14 18:22 Sodium 141 142 (135-145) mmol/L Potassium 3.0 L 3.5 (3.3-5.1) mmol/L Chloride 100 102 (96-108) mmol/L Carbon Dioxide 32 H 31 H (22-29) mmol/L Anion Gap 12 13 (12-20) BUN 9 9 (9-16) mg/dL Creatinine 0.62 0.62 (0.5-1.4) mg/dL Estim Creat Clear Calc 91.4 91.4 Estimated GFR > 60 > 60 Random Glucose 108 99 (60-115) mg/dL Calcium 9.0 8.8 (8.4-10.2) mg/dL ECG Data Attestation: I personally reviewed and interpreted this ECG as follows: (Sinus rhythm, heart rate 93, no ST segment depression or elevation, no T-wave inversion, QTC 450) Discharge Plan Discharge Clinical Impression: Acute hypokalemia Patient Disposition: Home, Self-Care Instructions: Hypokalemia (ED) Additional Instructions: Please follow-up with your primary care physician tomorrow. If you have any worsening or new symptoms, please return to the emergency room or call 911 Prescriptions: No Action ferrous sulfate 324 mg (65 mg iron) tablet,delayed release (DR/EC) 324 mg PO BID 90 Days Qty: 180 0RF amlodipine 5 mg tablet 5 mg PO DAILY 90 Days Qty: 90 0RF Protocol: Hold for SBP< HOLD for SBP < : 90 mesalamine [Delzicol] 400 mg capsule (with del rel tablets) 800 mg PO TID 90 Days Qty: 540 0RF mesalamine [Rowasa] 4 gram/60 mL enema 4 g CO BEDTIME 14 Days Qty: 840 0RF meclizine 25 mg tablet 25 mg PO Q6H PRN (Reason: Vertigo) 30 Days Qty: 90 0RF
[2022-01-04] MEDS: Potassium Chloride Packet 20 MEQ PACKET 80 MEQ PO (17:01)
[2022-01-04 17:42] LABS: Anion Gap 12 (12-20); Blood Urea Nitrogen 9 mg/dL (9-16); Carbon Dioxide 32 mmol/L (22-29); Chloride 100 mmol/L (96-108); Creatinine Clr Calc Pharmacy 91.4; Estimated Glomerular Filt Rate > 60; Glucose Random 108 mg/dL (60-115); Sodium 141 mmol/L (135-145)
[2022-01-04 18:56] LABS: Anion Gap 13 (12-20); Blood Urea Nitrogen 9 mg/dL (9-16); Calcium 8.8 mg/dL (8.4-10.2); Carbon Dioxide 31 mmol/L (22-29); Chloride 102 mmol/L (96-108); Creatinine Clr Calc Pharmacy 91.4; Estimated Glomerular Filt Rate > 60; Glucose Random 99 mg/dL (60-115); Potassium 3.5 mmol/L (3.3-5.1); Sodium 142 mmol/L (135-145)
== END 2022-01-04 19:33 | disposition home or self-care (01) ==
PROVIDERS: Emergency Provider Emergency Medicine; PCP Internal Medicine
DX: E87.6 Hypokalemia (principal); I10 Essential (primary) hypertension; D64.9 Anemia, unspecified
CPT/HCPCS: 36415; 80048; 80053; 82728; 83540; 84443; 85025; 93005; 99283; 99284

== ENCOUNTER 2022-01-20 10:00 | Outpatient (RCR) | payer MEDICARE, SELFPAY ==
[2022-01-05 09:10] VITALS: BP 148/90; PULSE 88; O2SAT 98
--- NOTE | 2022-01-05 11:11 | MHC.PT.EP ---
[facility] [place] Office [place] Office [place] Office [address] Avtar Napoles [address] [phone] F: [phone] F: [phone] F: [phone] F: [phone] Physical Therapy Plan of Care Date of Evaluation: Date of Surgery: Diagnosis: This is a 66 yo female presenting to skilled PT with a script for vertigo Assessment: Patient's symptoms started about 2 weeks ago. She reported that the room was spinning and she was vomiting. [place] [facility] [place] She had a CT scan and MRI of the head which were negative. She saw neurology in the hospital who recommended conservative management. Since then her symptoms have improved with time but she is unsure of herself on her feet still and still feels off. Her L ear is constantly ringing and her head feels full, symptoms increase with movement. Also to note she was in the ED yesterday due to low K. She has a visit with gastro and follow up with Dr. Krishnan in the future. No ENT appointment as been scheduled. Examination shows + oculomotor tests for horizontal saccades, (-) VBI B and decreased cervical AROM. She was (+) for BPPV with tiara-hallpike (horizontal in nature so performed kurtzer christiano) and then L nena maneuver as nystagmus became torsional in nature which was improved s/p tx. Her nystagmus was slow. PT did not have enough time to assess balance at [facility] but plans to do so next session. S/S consistent with ? L PC BPPV/may have some horizontal canal involvement and would benefit from PT 2x/wk for 4wks to address impairments, implement HEP and optimize functional mobility. 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 Manual therapy to restore motion and function. Therapeutic exercise to improve strength and flexibility. Neuromuscular re-education for posture and balance. Therapeutic activities to return to functional activities of daily living. Electronically signed by: Deysi William PT Please sign and return to therapist. Thank you for your referral.
--- NOTE | 2022-02-17 09:38 | MHC.PT.DC ---
[facility] [place] Office [place] Office [place] Office [address] Avtar Napoles [address] [phone] F: [phone] F: [phone] F: [phone] F: [phone] Physical Therapy Discharge Report Diagnosis: This is a 66 yo female presenting to skilled PT with a script for vertigo Date of Surgery: Date of Evaluation: 01/05/22 Date of Discharge: 02/17/22 Treatments to Date: 6 Cancellations to Date: 0 No Shows to Date: 0 Discharge Status: Patient Elected to Stop Recommend MD Follow-up Discharge Summary: At the last tx session patient with minimal dizziness if any at all, her symptoms seem to be more ear related. She reports a ringing in the ear, decreased hearing in the ear and fullness. This has not improved with therapy. She demos decent balance however is still fearful and is using a cane still. At this time she is no longer progressing with PT and it appears that her symptoms may be related to her ear, we discussed talking with PCP about a referral out, ? ENT. I am placing her on PT hold at this time as her symptoms don't appear to be vestibular in nature. We have been performing balance tasks, VOR exercises and gaze stabilization challenges. She demos no nystagmus or symptoms in hallpike or roll test. DC'd chart after 30 day hold Electronically signed by: Lis William PT Please sign and return to therapist. Thank you for your referral.
== END 2022-02-17 09:38 | disposition home or self-care (01) ==
LOC: HO.PTCHIC 10:00
PROVIDERS: PCP Internal Medicine; Visit Provider Internal Medicine
DX: R42 Dizziness and giddiness (principal)
CPT/HCPCS: 95992; 97112; 97162

== ENCOUNTER → 2022-03-27 13:12 | Outpatient (BNVA) | payer MEDICARE, SELFPAY | PROVIDERS: PCP Internal Medicine; Visit Provider Internal Medicine Gastroenterology | DX: K51.319 Ulcerative (chronic) rectosigmoiditis with unspecified complications (principal) | CPT/HCPCS: 99212 ==

== ENCOUNTER 2022-04-04 11:28 | Outpatient (REF) | payer MEDICARE, SELFPAY | END 2022-04-04 11:29 | disposition home or self-care (01) | LOC: HO.LNP 11:28 | PROVIDERS: Visit Provider Internal Medicine Gastroenterology | DX: K51.319 Ulcerative (chronic) rectosigmoiditis with unspecified complications (principal) | CPT/HCPCS: 83631 ==

== ENCOUNTER 2022-05-11 08:58 | Outpatient (REF) | payer MEDICARE, SELFPAY ==
--- NOTE | ~2022-05-11 | XR_ITS ---
EXAMINATION: LEFT KNEE AND LEFT HIP. CLINICAL INFORMATION: Pain left knee. COMPARISON: None TECHNIQUE: 2 views left knee and 2 views left hip FINDINGS: Left knee: There is no visible acute fracture, dislocation or subluxation. No bony erosive changes. No loose bodies. There is superior patellar spur. Left hip: There is no visible acute fracture, dislocation or subluxation. No bony erosive changes. The soft tissues are normal. XR/XR hip LT min 2V IMPRESSION: Unremarkable left knee exam. Unremarkable left hip exam
--- NOTE | ~2022-05-11 | XR_ITS ---
EXAMINATION: LEFT KNEE AND LEFT HIP. CLINICAL INFORMATION: Pain left knee. COMPARISON: None TECHNIQUE: 2 views left knee and 2 views left hip FINDINGS: Left knee: There is no visible acute fracture, dislocation or subluxation. No bony erosive changes. No loose bodies. There is superior patellar spur. Left hip: There is no visible acute fracture, dislocation or subluxation. No bony erosive changes. The soft tissues are normal. XR/XR knee LT 2V IMPRESSION: Unremarkable left knee exam. Unremarkable left hip exam
[2022-05-11 11:25] LABS: MANUAL DIFF FLAG NO
[2022-05-11 11:32] LABS: Basophils Absolute Auto 0.1 X10*3/uL (0.0-0.2); Basophils Percent Auto 0.8 % (0-2); Eosinophils Absolute Auto 0.3 X10*3/uL (0.0-0.4); Eosinophils Percent Auto 3.4 % (0-4); Hematocrit 35.7 % (37.0-47.0); Hemoglobin 11.2 g/dl (12.0-16.0); Imm Gran Abs Auto 0.02 X10*3/uL (0.00-0.03); Imm Gran Pct Auto 0.3 % (0.0-0.4); Lymphocytes Absolute Auto 1.7 X10*3/uL (1.2-4.9); Lymphocytes Percent Auto 21.8 % (20-40); Mean Corpuscular HGB Conc 31.4 g/dl (31.0-35.0); Mean Corpuscular Hemoglobin 25.2 pg (27.0-33.0); Mean Corpuscular Volume 80.4 fL (80.0-98.0); Mean Platelet Volume 8.6 fL (9.4-12.3); Monocytes Absolute Auto 0.7 X10*3/uL (0.1-1.2); Monocytes Percent Auto 8.8 % (2-11); Neutrophils Percent Auto 64.9 % (45-73); Platelet Count 311 X10*3/uL (160-400); Red Blood Count 4.44 X10*6/uL (4.20-5.50); Red Cell Distribution Width 14.9 % (11.0-16.0); White Blood Count 7.7 X10*3/uL (4.8-10.8)
[2022-05-11 12:26] LABS: Alanine Aminotransferase 7 U/L (0-31); Albumin Level 3.8 g/dL (3.5-5.0); Alkaline Phosphatase 54 U/L (39-117); Anion Gap 14 (12-20); Aspartate Amino Transferase 9 U/L (5-31); Bilirubin Total 0.5 mg/dL (0.0-1.0); Blood Urea Nitrogen 14 mg/dL (9-16); Calcium 9.1 mg/dL (8.4-10.2); Carbon Dioxide 29 mmol/L (22-29); Chloride 103 mmol/L (96-108); Estimated Glomerular Filt Rate > 60; Glucose Random 93 mg/dL (60-115); Sodium 142 mmol/L (135-145); Total Protein 7.5 g/dL (6.5-8.0)
[2022-05-11 12:55] LABS: Ferritin 37 ng/mL (10-250)
== END 2022-05-11 08:59 | disposition home or self-care (01) ==
LOC: HO.HMGCLDS 08:58
PROVIDERS: PCP Internal Medicine; Visit Provider Internal Medicine
DX: M25.552 Pain in left hip (principal); M25.562 Pain in left knee; D50.9 Iron deficiency anemia, unspecified; H93.19 Tinnitus, unspecified ear; I10 Essential (primary) hypertension; K51.319 Ulcerative (chronic) rectosigmoiditis with unspecified complications; R42 Dizziness and giddiness
CPT/HCPCS: 36415; 73502; 73560; 80053; 82728; 85025

== ENCOUNTER 2022-06-13 20:33 | Outpatient (REF) | payer MEDICARE, SELFPAY ==
--- NOTE | ~2022-06-13 | XR_ITS ---
EXAMINATION: XR PELVIS CLINICAL INFORMATION: Pain COMPARISON: Previous left hip x-ray May 2022 TECHNIQUE: AP view of the pelvis. FINDINGS: Bone alignment is normal. No fracture or dislocation is seen. Joint spaces are normal. There may be a small osteophyte at the left greater trochanter. There are mild degenerative changes of visualized lower lumbar spine. Soft tissues are normal. XR/XR pelvis 1-2V IMPRESSION: Question small osteophyte adjacent left greater trochanter.
== END 2022-06-13 20:34 | disposition home or self-care (01) ==
LOC: HO.HOSX 20:33
PROVIDERS: Visit Provider Physician Assistant
DX: M25.551 Pain in right hip (principal); M25.552 Pain in left hip
CPT/HCPCS: 72170

== ENCOUNTER → 2022-06-14 08:35 | Outpatient (BNVA) | payer MEDICARE, SELFPAY | PROVIDERS: PCP Internal Medicine; Visit Provider Physician Assistant | DX: M70.62 Trochanteric bursitis, left hip (principal); M53.3 Sacrococcygeal disorders, not elsewhere classified; G89.29 Other chronic pain | CPT/HCPCS: 99202 ==

== ENCOUNTER 2022-09-07 14:00 | Outpatient (RCR) | payer MEDICARE, SELFPAY ==
--- NOTE | 2022-06-21 09:55 | MHC.PT.EP ---
[facility] [place] Office [place] Office [place] Office [address] Avtar Napolse [address] [phone] F: [phone] F: [phone] F: [phone] F: [phone] Physical Therapy Plan of Care Date of Evaluation: Date of Surgery: none Diagnosis: Tronchanteric bursitis L hip. Sacroccygeal disorders Assessment: Patient is a 66 year old R handed female who presents with s/s consistent with L trochanteric bursitis, L hip pain. She is retired but does like to stay active with family and errands. Patient past medical history includes vertigo and colitis, some back pain. Current impairments include pain, posture, ROM, strength, activity tolerance and functional mobility. Functional limitations include decreased ability to walk, stand, transfer, negotiate stairs, and be active in the community. Patient is motivated with good rehab potential. Skilled PT will address impairments and functional limitations in order to achieve goals. 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 Manual therapy to restore motion and function. Therapeutic exercise to improve strength and flexibility. Neuromuscular re-education for posture and balance. Therapeutic activities to return to functional activities of daily living. Electronically signed by: Storm Hassan, PT Please sign and return to therapist. Thank you for your referral.
--- NOTE | 2022-11-10 08:22 | MHC.PT.DC ---
[facility] [place] Office [place] Office [place] Office [address] Avtar Napoles [address] [phone] F: [phone] F: [phone] F: [phone] F: [phone] Physical Therapy Discharge Report Diagnosis: Tronchanteric bursitis L hip. Sacroccygeal disorders Date of Surgery: none Date of Evaluation: 06/21/22 Date of Discharge: 09/21/22 Treatments to Date: 12 Cancellations to Date: No Shows to Date: Discharge Status: Improved Function Independent with HEP Discharge Summary: Pt has been progressing well with skilled PT. Hip strength has improved to 4/5 grossly. I with HEP. Hip ER to 40 b/l. Able to walk 20 minutes without pain. She is ready to attempt to be I with HEP at this time and will call in 2 weeks. Electronically signed by: Storm Hassan, PT Please sign and return to therapist. Thank you for your referral.
== END 2022-11-10 08:22 | disposition home or self-care (01) ==
LOC: HO.PTCHIC 14:00
PROVIDERS: PCP Internal Medicine; Visit Provider Physician Assistant
DX: M70.62 Trochanteric bursitis, left hip (principal); M53.3 Sacrococcygeal disorders, not elsewhere classified; G89.29 Other chronic pain
CPT/HCPCS: 97110; 97140; 97162; 97530

== ENCOUNTER 2022-09-19 14:23 | Outpatient (REF) | payer MEDICARE, SELFPAY ==
--- NOTE | ~2022-09-19 | MM_ITS ---
EXAMINATION: MM SCREENING DIGITAL BREAST TOMOSYNTHESIS, BILATERAL CLINICAL INFORMATION: Screening. Asymptomatic. The lifetime risk of breast cancer based on the Tyrer-Cuzick Model is 6%. COMPARISON: Mammography: 09/13/2021, 09/04/2020, 08/30/2019 TECHNIQUE: Digital breast tomosynthesis is performed in both the craniocaudal and mediolateral oblique views along with computer-aided detection (CAD). Synthesized 2D images are generated from the tomosynthesis. FINDINGS: There are scattered areas of fibroglandular density (ACR BI-RADS breast composition Category b). There are no significant masses, abnormal calcifications, or other abnormalities. Parenchymal pattern is similar to prior studies. There is no developing density or architectural abnormality. The axilla and skin contours are unremarkable. No significant changes. MM/MM tomosynthesis screening BI IMPRESSION: No mammographic evidence of malignancy. ASSESSMENT: BI-RADS 1: Negative RECOMMENDATION: Routine annual mammography screening. This patient's information was entered into a reminder system with a target due date for their next mammogram.
== END 2022-09-19 14:24 | disposition home or self-care (01) ==
LOC: HO.MAMMO 14:23
PROVIDERS: Visit Provider Internal Medicine
DX: Z12.31 Encounter for screening mammogram for malignant neoplasm of breast (principal)
CPT/HCPCS: 77063; 77067

== ENCOUNTER → 2022-11-27 15:35 | Outpatient (BNVA) | payer MEDICARE, SELFPAY | PROVIDERS: PCP Internal Medicine; Visit Provider Internal Medicine Gastroenterology | DX: K51.90 Ulcerative colitis, unspecified, without complications (principal); D64.9 Anemia, unspecified; I10 Essential (primary) hypertension | CPT/HCPCS: 99212 ==

== ENCOUNTER 2023-01-01 07:35 | Outpatient (REF) | payer MEDICARE, SELFPAY ==
[2023-01-01 11:29] LABS: MANUAL DIFF FLAG NO
[2023-01-01 11:38] LABS: Basophils Absolute Auto 0.1 X10*3/uL (0.0-0.2); Basophils Percent Auto 0.7 % (0-2); Eosinophils Absolute Auto 0.2 X10*3/uL (0.0-0.4); Eosinophils Percent Auto 2.9 % (0-4); Hematocrit 39.7 % (37.0-47.0); Imm Gran Abs Auto 0.01 X10*3/uL (0.00-0.03); Imm Gran Pct Auto 0.1 % (0.0-0.4); Lymphocytes Absolute Auto 1.9 X10*3/uL (1.2-4.9); Lymphocytes Percent Auto 25.3 % (20-40); Mean Corpuscular HGB Conc 30.2 g/dl (31.0-35.0); Mean Corpuscular Hemoglobin 25.1 pg (27.0-33.0); Mean Corpuscular Volume 83.1 fL (80.0-98.0); Mean Platelet Volume 8.5 fL (9.4-12.3); Monocytes Absolute Auto 0.5 X10*3/uL (0.1-1.2); Neutrophils Absolute Auto 4.9 x10*3/uL (2.0-8.3); Platelet Count 290 X10*3/uL (160-400); Red Blood Count 4.78 X10*6/uL (4.20-5.50); Red Cell Distribution Width 15.2 % (11.0-16.0); White Blood Count 7.6 X10*3/uL (4.8-10.8)
[2023-01-01 13:06] LABS: Alanine Aminotransferase 8 U/L (0-31); Alkaline Phosphatase 64 U/L (39-117); Anion Gap 13 (12-20); Aspartate Amino Transferase 10 U/L (5-31); Bilirubin Total 0.6 mg/dL (0.0-1.0); Blood Urea Nitrogen 15 mg/dL (9-16); Calcium 9.3 mg/dL (8.4-10.2); Carbon Dioxide 27 mmol/L (22-29); Chloride 105 mmol/L (96-108); Estimated Glomerular Filt Rate > 60; Ferritin 30 ng/mL (10-250); Glucose Random 92 mg/dL (60-115); Potassium 3.9 mmol/L (3.3-5.1); Sodium 141 mmol/L (135-145); Total Protein 7.4 g/dL (6.5-8.0)
== END 2023-01-01 07:36 | disposition home or self-care (01) ==
LOC: HO.HMGCLDS 07:35
PROVIDERS: PCP Internal Medicine; Visit Provider Internal Medicine
DX: H93.19 Tinnitus, unspecified ear (principal); D50.9 Iron deficiency anemia, unspecified; I10 Essential (primary) hypertension
CPT/HCPCS: 36415; 80053; 82728; 85025

== ENCOUNTER → 2023-02-26 11:22 | Outpatient (BNVA) | payer MEDICARE, SELFPAY | PROVIDERS: PCP Internal Medicine; Visit Provider Internal Medicine Gastroenterology | DX: K51.50 Left sided colitis without complications (principal); E73.9 Lactose intolerance, unspecified | CPT/HCPCS: 99212 ==

== ENCOUNTER 2023-03-23 09:43 | Outpatient (AMB) | payer MEDICARE, SELFPAY ==
--- NOTE | 2023-03-23 09:46 | A.OFFVIS_ITS ---
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 She states that her symptoms have gotten worse over the last few years in spite of continued non operative treatments. She has done physical therapy which gave her minimal relief. She has also tried Tylenol which gives only mild relief. She is not able to tolerate anti-inflammatory medicines. The patient states that at times her low back pain will radiate down the posterior aspects of both of her legs. She also reports intermittent weakness in her bilateral legs. She does walk with a cane. Allergies amlodipine Adverse Reaction (Verified 03/23/23 10:03) Ankle swelling lisinopril Adverse Reaction (Verified 03/23/23 10:03) Cough Medication List - Last Reconciled 03/23/23 by Matthieu Peña MD acetaminophen (Tylenol Extra Strength) 500 mg PO Q6H PRN atenolol 25 mg PO DAILY cholecalciferol (vitamin D3) 25 mcg PO DAILY ferrous sulfate 324 mg PO BID 90 days loratadine (Claritin) 10 mg PO DAILY PRN meclizine 25 mg PO Q6H PRN 30 days mesalamine 2.6667 grams (40.0005 mL) TX BEDTIME mesalamine ER (Apriso) 1.5 grams (4 x 0.375 gram) PO QAM solifenacin (Vesicare) 10 mg PO DAILY PFSH Medical History Anemia Colitis HTN (hypertension) Surgical History H/O: hysterectomy History of esophagogastroduodenoscopy (EGD) Hx of colonoscopy Family History Mother Bladder cancer Brother Cancer of kidney Lung cancer Brother Lung cancer Social History Household Members: Spouse Housing: House Do you presently have visiting nurse or other home services: No Alcohol intake: never Patient Tobacco Use Status: Former Tobacco user e-Cigarette/Vaping Use: Never Used service: No Current occupational status: retired Cognitive needs: No Hearing needs: No Vision needs: Yes Physical Exam Vital Signs: BMI result Body Mass Index 33.6 Const Other: Well-nourished well-developed very friendly female awake alert and oriented x3 in no acute distress Neuro Other: Bilateral lower extremity examination shows good capillary refill, no skin lesions noted, normal sensation light touch Low back examination shows bilateral paraspinal muscle tenderness, pain with range of motion, positive straight leg raise tests at 70 degrees bilaterally, 4/5 strength with testing of her bilateral hip flexors and knee extensors Results Reviewed Results Reviewed: X-rays of the patient's bilateral hips show mild diffuse joint space narrowing, no acute bony abnormalities Assessment & Plan Assessment & Plan (1) Low back pain: Code(s): M54.50 - Low back pain, unspecified Plan Ms. Carmona presents with progressively worsening low back pain which radiates down the posterior aspects of both of her legs as well as associated bilateral leg weakness possibly due to lumbar stenosis or a disc herniation. The patient states that she will have difficulty tolerating an MRI because of her vertigo. Thus, I will order a CT scan of her lumbar spine for further evaluation. I will see her back once the scan is completed. She will continue with activity modifications in the meantime. Feel free to call me at any time should questions regarding her orthopedic management arise. Thank you very much for asking me to see this very friendly patient. I spent 22 minutes in reviewing the patient's records and imaging studies, seeing the patient and documenting in the medical record. Orders: Orders XR hip LT min 2V Today M25.552 - Pain in left hip CT lumbar spine wo IV con Today M54.41 - Lumbago with sciatica, right side, M54.42 - Lumbago with sciatica, left side Coding Level of Care Code Est Pt Level 2 (19950) Diagnoses Low back pain M54.50
[2023-03-23 09:47] VITALS: BMI 33.6
== END 2023-03-23 12:07 | disposition home or self-care (01) ==
PROVIDERS: PCP Internal Medicine; Visit Provider Orthopaedic Surgery
DX: M54.50 Low back pain, unspecified (principal)
CPT/HCPCS: 99212

== ENCOUNTER 2023-03-23 10:30 | Outpatient (REF) | payer MEDICARE, OTHER, SELFPAY ==
--- NOTE | ~2023-03-23 | XR_ITS ---
EXAMINATION: XR HIP, LEFT CLINICAL INFORMATION: Pain COMPARISON: 06/14/22 TECHNIQUE: Two views of the left hip. FINDINGS: No acute fracture or subluxation. No definite focal lesion. The femoral acetabular joint space appears preserved. Femoral head contour appears smooth. There is some sclerosis involving the greater trochanter. XR/XR hip LT min 2V IMPRESSION: 1. No acute fracture or subluxation. 2. There is some sclerosis involving the greater trochanter.
== END 2023-03-23 10:31 | disposition home or self-care (01) ==
LOC: HO.HOSX 10:30
PROVIDERS: Visit Provider Orthopaedic Surgery
DX: M25.552 Pain in left hip (principal); M54.42 Lumbago with sciatica, left side; Z79.899 Other long term (current) drug therapy
CPT/HCPCS: 73502; 99212

== ENCOUNTER 2023-04-05 07:23 | Outpatient (REF) | payer MEDICARE, OTHER, SELFPAY ==
--- NOTE | ~2023-04-05 | CT_ITS ---
EXAMINATION: CT LUMBAR SPINE WITHOUT CONTRAST CLINICAL INFORMATION: Left-sided sciatica COMPARISON: None TECHNIQUE: A multidetector CT acquisition of the lumbar spine is obtained without contrast. This CT examination was performed using dose optimization techniques as appropriate, variously including the following: *Automated exposure control *Adjustment of mA and/or kV according to patient size (this includes techniques or standardized protocols for targeted exams where dose is matched to indication/reason for exam; i.e. extremities or head) *Use of iterative reconstruction technique DLP: 523.58 mGy-cm FINDINGS: Normal lumbar lordosis is preserved. No significant spondylolisthesis. Vertebral body heights are maintained. There is no suspicious osseous lesion. Mild multilevel disc height loss. Please not canal patency is not well assessed on this examination due to inherent limitations of CT without intrathecal contrast and would be better assessed on MRI is not contraindicated. Within these limitations, multilevel degenerative changes with level by level detail are as follows: L1-L2: No spinal canal or neural foraminal stenosis. L2-L3: Mild bilateral facet arthrosis. Small right greater than left foraminal disc protrusions. Mild bilateral neural foraminal encroachment. L3-L4: Annular disc bulge and moderate bilateral facet arthrosis with ligamentum flavum thickening. Apparent minimal spinal canal narrowing. Mild to moderate left and mild right neural foraminal stenosis. L4-L5: Annular disc bulge with moderate bilateral facet arthrosis. No spinal canal stenosis. Mild bilateral neural foraminal narrowing. L5-S1: Annular disc bulge with superimposed broad-based left paracentral disc protrusion/possible superiorly migrated extrusion and mild to moderate bilateral facet arthrosis. No spinal canal stenosis. Asymmetric left subarticular zone narrowing with mass effect along the traversing left S1 nerve root. Mild left without right neural foraminal encroachment. No significant abnormalities of the paraspinal musculature. Mild calcific atherosclerotic disease. The left hepatic lobe is not identified and may be absent/atrophic. The abdominal aorta is of normal contour and caliber. Degenerative changes of the sacroiliac joints with subchondral cystic change and sclerosis, and osteophytic spurring. CT/CT lumbar spine wo IV con IMPRESSION: Please not canal patency is not well assessed on this examination due to inherent limitations of CT without intrathecal contrast and would be better assessed on MRI is not contraindicated. Lumbar spondylosis without high-grade spinal canal or neural foraminal stenosis. Apparent broad-based left paracentral disc protrusion/superiorly migrated extrusion at L5-S1 with asymmetric left subarticular zone narrowing with mass effect along the traversing left S1 nerve root.
== END 2023-04-05 07:24 | disposition home or self-care (01) ==
LOC: HO.CT 07:23
PROVIDERS: Visit Provider Orthopaedic Surgery
DX: M54.41 Lumbago with sciatica, right side (principal); M54.42 Lumbago with sciatica, left side
CPT/HCPCS: 72131

== ENCOUNTER 2023-04-20 08:04 | Outpatient (AMB) | payer MEDICARE, OTHER, SELFPAY ==
[2023-04-20 08:12] VITALS: BP 162/98; PULSE 79; O2SAT 98
--- NOTE | 2023-04-20 08:12 | MHC.PC.OV ---
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 Is last menstrual period known: No Post menopausal: Yes Patient : No Allergies amlodipine Adverse Reaction (Verified 04/20/23 08:13) Ankle swelling lisinopril Adverse Reaction (Verified 04/20/23 08:13) Cough Medication List - Last Reconciled 04/20/23 by Janette Watson RN acetaminophen (Tylenol Extra Strength) 500 mg PO Q6H PRN atenolol 25 mg PO DAILY cholecalciferol (vitamin D3) 25 mcg PO DAILY ferrous sulfate 324 mg PO BID 90 days loratadine (Claritin) 10 mg PO DAILY PRN meclizine 25 mg PO Q6H PRN 30 days mesalamine 2.6667 grams (40.0005 mL) [place] BEDTIME mesalamine ER (Apriso) 1.5 grams (4 x 0.375 gram) PO QAM solifenacin (Vesicare) 10 mg PO DAILY Tobacco use date assessed: 04/20/23 Fall risk assessment: No Falls in past year Last assessed Fall Risk: 04/20/23 Dental Screening Dental Screen Date: 04/20/23 Did you have a dental visit in the last 12 months?: Yes Did you have a dental problem in the last 6 months where you did not have access to dental care?: No Was dental information given to patient?: Patient has dentist HPI 3m follow up HPI Details Patient is a 67-year-old female came in today for her regular follow-up appointment Blood pressure continued to be elevated today it is 162/98, patient tells me that it is running around 120s at home She will bring her blood pressure monitor on Sunday and we will calibrate it with our monitor. Meanwhile she is to continue with atenolol 25 mg Last visit I switched her to atenolol from amlodipine as she was complaining of swelling of her ankle, Today she tells me that it feels tight just as before sometimes even more. It seems as if patient have lymphedema on physical exam however I will book her appointment with a vascular specialist for evaluation. We also did EKG today just to make sure nothing serious is happening in her heart which shows normal sinus rhythm 78 beats per minute no acute findings On examination her chest is clear there are no crackles Urine urgency: Patient is on VESIcare and is doing well Allergies are stable patient is on Claritin as needed Dizziness is also stable with meclizine as needed. She continued to see Gastroenterology [facility] and is taking mesalamine for the management of ulcerative colitis patient is stable. She is seeing a orthopedic [facility] for back pain and has appointment coming up. Follow-up 3 months PFS Medical History Anemia Colitis HTN (hypertension) Surgical History H/O: hysterectomy History of esophagogastroduodenoscopy (EGD) Hx of colonoscopy Family History Mother Bladder cancer Brother Cancer of kidney Lung cancer Brother Lung cancer Social History Household Members: Spouse Housing: House Do you presently have visiting nurse or other home services: No Alcohol intake: never Patient Tobacco Use Status: Former Tobacco user e-Cigarette/Vaping Use: Never Used service: No Current occupational status: retired Cognitive needs: No Hearing needs: No Vision needs: Yes Questionnaire Thrive Questionnaire Date Thrive assessed: 09/12/22 LIBERTAD-7 AMB Questionnaire LIBERTAD-7 Date LIBERTAD - 7 assessed: 09/12/22 Source: Developed by Drs. Dashawn Restrepo, Jessica Worthington, Rodrigo Reynolds and colleagues, with an educational olena from [employer]. Review of Systems Const Denies chills and Denies fever(s) ENT Denies epistaxis and Denies nasal discharge Card Denies chest pain Resp Denies chest congestion, Denies cough and Denies hemoptysis GI Denies diarrhea and Denies nausea Skin/Breast Denies rash Neuro Reports no additional complaints Psych Reports no additional complaints Endo Reports no additional complaints Physical exam (Primary Care) Vital Signs: Last Vital Signs Pulse 79 04/20/23 08:12 BP 162/98 H 04/20/23 08:12 Pulse Ox 98 04/20/23 08:12 Oxygen Delivery Method Room Air 04/20/23 08:12 Tobacco/Smoking Status: Tobacco use Status Tobacco use date assessed 04/20/23 04/20/23 08:17 Patient Tobacco Use Status Former Tobacco user 04/20/23 08:17 e-Cigarette/Vaping Use Never Used 04/20/23 08:17 Thrive Assessment: Date of Thrive Assessment Date Thrive assessed 09/12/22 04/20/23 08:17 Const General: cooperative, comfortable and no acute distress Orientation/consciousness: patient oriented x3 HENMT Head: Yes normocephalic Eyes General: appearance normal, both eyes and all related structures Neck Neck: Yes supple Resp Effort & Inspection: normal respiratory effort, no cough and no stridor Cardio Rhythm: regular rhythm Heart sounds: S1 normal heart sound present and S2 normal heart sound present Skin General skin exam: turgor normal Neuro General: patient oriented x3, tone normal and moves all extremities Extrem Other: Mild pitting edema ankles lymphedema like changes in the legs bilateral Right lower extremity: no edema Left lower extremity: no edema Office Procedures EKG [id number], Complete Assessment and Plan Assessment & Plan (1) Hypertension, essential: Code(s): I10 - Essential (primary) hypertension (2) Dizziness: Code(s): R42 - Dizziness and giddiness (3) Ulcerative proctosigmoiditis with complication: Code(s): K51.319 - Ulcerative (chronic) rectosigmoiditis with unspecified complications (4) Overactive bladder: Code(s): N32.81 - Overactive bladder (5) Ankle swelling: Code(s): M25.473 - Effusion, unspecified ankle (6) Peripheral vascular disease: Code(s): I73.9 - Peripheral vascular disease, unspecified Plan Patient is a 67-year-old female came in today for her regular follow-up appointment Blood pressure continued to be elevated today it is 162/98, patient tells me that it is running around 120s at home She will bring her blood pressure monitor on Sunday and we will calibrate it with our monitor. Meanwhile she is to continue with atenolol 25 mg Last visit I switched her to atenolol from amlodipine as she was complaining of swelling of her ankle, Today she tells me that it feels tight just as before sometimes even more. It seems as if patient have lymphedema on physical exam however I will book her appointment with a vascular specialist for evaluation. We also did EKG today just to make sure nothing serious is happening in her heart which shows normal sinus rhythm 78 beats per minute no acute findings On examination her chest is clear there are no crackles Urine urgency: Patient is on VESIcare and is doing well Allergies are stable patient is on Claritin as needed Dizziness is also stable with meclizine as needed. She continued to see Gastroenterology [facility] and is taking mesalamine for the management of ulcerative colitis patient is stable. She is seeing a orthopedic [facility] for back pain and has appointment coming up. Follow-up 3 months Orders: Orders AMB EKG-In Office Today I10 - Essential (primary) hypertension, M25.473 - Effusion, unspecified ankle Referrals Vascular Surgery Referral I73.9 - Peripheral vascular disease, unspecified, M25.473 - Effusion, unspecified ankle Coding Level of Care Code Est Pt Level 4 (49723) Diagnoses Hypertension, essential I10 Dizziness R42 Ulcerative proctosigmoiditis with complication K51.319 Overactive bladder N32.81 Ankle swelling M25.473 Peripheral vascular disease I73.9 CPT Codes EKG - CPT: 02658-[id number], Complete ([id number])
== END 2023-04-20 08:46 | disposition home or self-care (01) ==
PROVIDERS: Visit Provider Internal Medicine
DX: I10 Essential (primary) hypertension (principal); K51.319 Ulcerative (chronic) rectosigmoiditis with unspecified complications; I73.9 Peripheral vascular disease, unspecified; R42 Dizziness and giddiness; N32.81 Overactive bladder; M25.473 Effusion, unspecified ankle
CPT/HCPCS: 93000; 99214

== ENCOUNTER 2023-05-02 09:17 | Outpatient (AMB) | payer MEDICARE, OTHER, SELFPAY ==
--- NOTE | 2023-05-02 09:19 | A.OFFVIS_ITS ---
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 She states that her symptoms have gotten worse over the last few years in spite of continued non operative treatments.? She has done physical therapy which gave her minimal relief.? She has also tried Tylenol which gives only mild relief.? She is not able to tolerate anti- inflammatory medicines.? The patient states that at times her low back pain will radiate down the posterior aspects of both of her legs.? She also reports inte rmittent weakness in her bilateral legs.? She does walk with a cane. Allergies amlodipine Adverse Reaction (Verified 05/02/23 09:23) Ankle swelling lisinopril Adverse Reaction (Verified 05/02/23 09:23) Cough Medication List - Last Reconciled 05/02/23 by Susan Billings MD acetaminophen (Tylenol Extra Strength) 500 mg PO Q6H PRN atenolol 25 mg PO DAILY cholecalciferol (vitamin D3) 25 mcg PO DAILY ferrous sulfate 324 mg PO BID 90 days loratadine (Claritin) 10 mg PO DAILY PRN meclizine 25 mg PO Q6H PRN 30 days mesalamine 2.6667 grams (40.0005 mL) IN BEDTIME mesalamine ER (Apriso) 1.5 grams (4 x 0.375 gram) PO QAM solifenacin (Vesicare) 10 mg PO DAILY HPI HPI Comments History of Present Illness Details Chronic on/off mild back pain but worsened about a year ago. Was told in past that she has/had bursitis or arthritis on hips. When she gets up, she has to push up on knees or chair to get up. Difficult with stairs up or down. Pain on lower lumbar, both sides, left worse than right, goes down to back of thighs, not past the knees. Knees do feel tight at times. Knees swell up but mentions whole legs do swell up. She has been referred to vascular for further workup. reports both lower legs and feet numbness - even when she is sitting. No DM history. no foot drop. Treatment so far: Tylenol only NSAIDs - Can't take NSAIDs due to colitis therapy - been going for her hips, help a little temporarily injection - none yet surgery - no history uses a cane for walking, had vertigo episodes, [facility] Medical History (Updated 05/02/23 @ 09:53 by Susan Billings MD) Anemia Colitis HTN (hypertension) Lumbar degenerative disc disease Lumbar spondylosis Surgical History H/O: hysterectomy History of esophagogastroduodenoscopy (EGD) Hx of colonoscopy Family History Mother Bladder cancer Brother Cancer of kidney Lung cancer Brother Lung cancer Social History Household Members: Spouse Housing: House Do you presently have visiting nurse or other home services: No Alcohol intake: never Patient Tobacco Use Status: Former Tobacco user e-Cigarette/Vaping Use: Never Used service: No Current occupational status: retired Cognitive needs: No Hearing needs: No Vision needs: Yes Review of Systems Const All systems reviewed & are unremarkable except as noted in HPI and below Physical Exam Constitutional: Patient appears to be in no acute distress, well nourished and well developed. Patient was appropriately conversant and oriented. Good historian. MSK: No specific abnormalities found on inspection of the spine and all extremities. No pain with palpation over the lumbar area. SI nontender. Right GT tender. Lumbar ROM was full. Bilateral hip, knee and ankle ROM WNL. No ligamentous laxity or crepitance. No increased effusion. Straight-leg raising test negative. FABERE test positive hip pain bilateral. Gillet test is negative. Valeria test is negative. Piriformis test is negative. Strength is 5/5 in all muscle groups tested. No increased tone noted. Neurological: Neurologic examination of the upper and lower extremities was nonfocal with intact sensation, muscle stretch reflexes and without focal motor deficits . Ace?s negative bilaterally. Babinski was down going bilaterally. Clonus was negative. Gait is non-antalgic without loss of balance. She needs a cane for fall prevention, given vertigo. Deferred heel walk and toe walk. Results Reviewed Results Reviewed: I independently reviewed the results of the following: Lumbar CT shows possible disc herniation L5-S1 I reviewed records from the following: Internal Medicine, Neurology, Orthopedics Assessment & Plan Assessment & Plan (1) Lumbar spondylosis: Code(s): M47.816 - Spondylosis without myelopathy or radiculopathy, lumbar region (2) Lumbar degenerative disc disease: Code(s): M51.36 - Other intervertebral disc degeneration, lumbar region (3) Trochanteric bursitis of both hips: Code(s): M70.61 - Trochanteric bursitis, right hip; M70.62 - Trochanteric bursitis, left hip (4) Lumbar spinal stenosis: Code(s): M48.061 - Spinal stenosis, lumbar region without neurogenic claudication Plan Back pain could be from lumbar facet arthritis/spondylosis and lumbar disc pain. There is suggestion of spinal stenosis and claudication. She does not show any red flags today. Eventually will need an MRI but she is claustrophobic. She says she can trial an open MRI if really needed. We agreed to address hip pain 1st. We can trial a trochanteric injection on next follow-up. If after stabilizing hip pain, patient continues to show back pain or claudication symptoms, then we will need MRI at that point. Continue exercises taught by PT. Assessment and plan discussed with patent, and patient was agreeable. All questions were answered thoroughly. Hip trochanter injection to be scheduled. Coding Level of Care Code New Pt Level 4 (76583) Diagnoses Lumbar spondylosis M47.816 Lumbar degenerative disc disease M51.36 Trochanteric bursitis of both hips M70.61; M70.62 Lumbar spinal stenosis M48.061
== END 2023-05-02 09:47 | disposition home or self-care (01) ==
PROVIDERS: PCP Internal Medicine; Visit Provider Physical Medicine & Rehabilitation
DX: M47.816 Spondylosis without myelopathy or radiculopathy, lumbar region (principal); M51.36 Other intervertebral disc degeneration, lumbar region; M70.61 Trochanteric bursitis, right hip; M70.62 Trochanteric bursitis, left hip; M48.061 Spinal stenosis, lumbar region without neurogenic claudication
CPT/HCPCS: 99204

== ENCOUNTER → 2023-05-02 09:17 | Outpatient (BNVA) | payer MEDICARE, OTHER, SELFPAY | PROVIDERS: PCP Internal Medicine; Visit Provider Physical Medicine & Rehabilitation | DX: M51.36 Other intervertebral disc degeneration, lumbar region (principal); M47.816 Spondylosis without myelopathy or radiculopathy, lumbar region; M70.62 Trochanteric bursitis, left hip; M70.61 Trochanteric bursitis, right hip | CPT/HCPCS: 99202 ==

== ENCOUNTER 2023-05-17 08:47 | Outpatient (AMB) | payer MEDICARE, OTHER, SELFPAY ==
--- NOTE | 2023-05-17 09:05 | A.OFFVIS_ITS ---
Intake Intake Visit Reasons: OV-trochanteric injection Intake Note: This is a 67 year old female who presents for a trochanteric injection. Allergies amlodipine Adverse Reaction (Verified 05/17/23 09:06) Ankle swelling lisinopril Adverse Reaction (Verified 05/17/23 09:06) Cough Medication List - Last Reconciled 05/17/23 by Diana Scanlon, RN acetaminophen (Tylenol Extra Strength) 500 mg PO Q6H PRN atenolol 25 mg PO DAILY cholecalciferol (vitamin D3) 25 mcg PO DAILY ferrous sulfate 324 mg PO BID 90 days loratadine (Claritin) 10 mg PO DAILY PRN meclizine 25 mg PO Q6H PRN 30 days mesalamine 2.6667 grams (40.0005 mL) [place] BEDTIME mesalamine ER 1.5 grams (4 x 0.375 gram) PO QAM solifenacin (Vesicare) 10 mg PO DAILY HPI HPI Comments History of Present Illness Details Continues to have left more than right lateral hip pain. [facility] Medical History (Updated 05/02/23 @ 09:53 by Susan Billings MD) Lumbar degenerative disc disease Lumbar spondylosis Colitis Anemia HTN (hypertension) Surgical History History of esophagogastroduodenoscopy (EGD) Hx of colonoscopy H/O: hysterectomy Family History Mother Bladder cancer Brother Cancer of kidney Lung cancer Brother Lung cancer Social History Household Members: Spouse Housing: House Do you presently have visiting nurse or other home services: No Alcohol intake: never Patient Tobacco Use Status: Former Tobacco user e-Cigarette/Vaping Use: Never Used service: No Current occupational status: retired Cognitive needs: No Hearing needs: No Vision needs: Yes Office Procedures Joint Injection/Drain Joint Injection/Drain Details: Verbal consent obtained. Patient lies on unaffected side with lower leg flexed and upper leg extended. Tender area over the left greater trochanter is identified and marked. Area is cleansed with betadine solution. Using a [25] gauge needle, [3 ml] of 2% lidocaine is injected, with the needle perpendicular to center of tender area. Then, using a spinal needle, [40 mg] Kenalog is injected perpendicularly at center of tender area and slightly touching bone of greater trochanter. Patient tolerated procedure well without complications. Post-injection instructions given. Injected: 40 mg of, Kenalog, with 3 mL of and other (2% lidocaine) Coding 46046 - Large joint Procedure code (CPT) selection complete Results Reviewed Results Reviewed: 05/17/23 08:49 Lidocaine HCl 2 % MPF [Xylocaine 2 % MPF] 5 ml .ROUTE .STK-MED ONE Triamcinolone Acetonide [Kenalog-40] 40 mg .ROUTE .STK-MED ONE Assessment & Plan Assessment & Plan (1) Trochanteric bursitis of left hip: Code(s): M70.62 - Trochanteric bursitis, left hip Plan Post injection instructions given. Patient to observe if left hip improves as well as lower back pain. If lower back pain continues, we may need lumbar MRI at some point. Patient also to call if she would like right GT to be injected. Assessment and plan discussed with patient, and patient was agreeable. All questions were answered thoroughly. Patient to call our office in 2 weeks. Susan Billings MD, HAYDE Board Certified, [place] Board of Physical Medicine and Rehabilitation (ABPMR) Board Certified, [place] Board [employer] Electrodiagnostic Medicine (ABEM) Orders: Orders AMB Joint Injection/Aspiration Today M70.62 - Trochanteric bursitis, left hip Coding Level of Care Code Procedure Only Diagnoses Trochanteric bursitis of left hip M70.62 CPT Codes Coding - Large joint: 83731 - Large joint ([id number])
== END 2023-05-17 09:43 | disposition home or self-care (01) ==
PROVIDERS: PCP Internal Medicine; Visit Provider Physical Medicine & Rehabilitation
DX: M70.62 Trochanteric bursitis, left hip (principal)
CPT/HCPCS: 20610

== ENCOUNTER → 2023-05-17 08:47 | Outpatient (BNVA) | payer MEDICARE, OTHER, SELFPAY | PROVIDERS: PCP Internal Medicine; Visit Provider Physical Medicine & Rehabilitation | DX: M70.62 Trochanteric bursitis, left hip (principal) | CPT/HCPCS: 20610; J3301 ==

== ENCOUNTER 2023-06-12 13:14 | Outpatient (AMB) | payer MEDICARE, OTHER, SELFPAY ==
--- NOTE | 2023-06-12 13:21 | MHC.OFFVIS ---
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 Complaints include pain over varicosities, swelling of lower extremities, cramping, fatigue, and heaviness of the lower extremities. It has been affecting there daily activities including walking. It is noted more so in left leg. Of note she is being worked up by Orthopedics. She has bilateral lower extremity weakness most likely secondary to lumbar stenosis. She has undergone CT scan. Patient denies any previous venous surgery or injections. Patient denies any history of DVT/ PE. Patient denies any history of phlebitis. Trial of compression includes - [id number] which she is barely able to tolerate. It appears that these are more John Paul type stockings They now present for vascular evaluation regarding their varicose veins and significant lower extremity swelling.. [facility] Medical History (Updated 06/13/23 @ 12:46 by Corey Mendiola MD) Lumbar degenerative disc disease Lumbar spondylosis Colitis Anemia HTN (hypertension) Surgical History History of esophagogastroduodenoscopy (EGD) Hx of colonoscopy H/O: hysterectomy Family History Mother Bladder cancer Brother Cancer of kidney Lung cancer Brother Lung cancer Social History Household Members: Spouse Housing: House Do you presently have visiting nurse or other home services: No Alcohol intake: never Patient Tobacco Use Status: Former Tobacco user e-Cigarette/Vaping Use: Never Used service: No Current occupational status: retired Cognitive needs: No Hearing needs: No Vision needs: Yes Review of Systems Const Reports as per HPI ENT Reports no additional complaints Card Denies chest pain, Denies chest pain at rest and Denies chest pain with activity Resp Denies chest congestion and Denies cough GI Reports no additional complaints Musc Details: pain over varicosities, aching of lower extremities, swelling, cramping, heaviness and tiredness, itching Denies abnormal gait Skin/Breast Reports pruritus and Denies wounds Neuro Reports no additional complaints and Denies abnormal gait Psych Denies no additional complaints Physical Exam Vital Signs: BMI result Body Mass Index 34.3 Const General: cooperative, healthy appearing and comfortable Orientation/consciousness: oriented to person, oriented to place and oriented to time Neck Carotids: no bruits Chest Chest palpation & inspection: normal inspection of the chest and normal palpation of entire chest wall Resp Effort & Inspection: normal respiratory effort and able to speak in complete sentences Cardio Rate: regular rate Heart sounds: S1 normal heart sound present and S2 normal heart sound present Peripheral pulses: Peripheral pulses 2+ throughout GI Inspection: Yes normal to inspection Skin Other: +2 edema, General skin exam: dry skin Neuro General: oriented to person, oriented to place and oriented to time Extrem Right lower extremity: full ROM, normal capillary refill and edema Left lower extremity: full ROM, normal capillary refill and edema Psych Mental Status: mental status grossly normal Assessment & Plan Assessment & Plan (1) Varicose veins of left lower extremity with inflammation: Code(s): I83.12 - Varicose veins of left lower extremity with inflammation Plan: In short patient has significant swelling of the lower extremities. I do not believe that this is the source of her pain. I am happy to try to treat her and help assist with the swelling that might improve her walking ability. I have taken the liberty of ordering venous insufficiency testing she does have palpable dorsalis pedis pulses. In addition there it may be concern of an element of lymphedema. She will follow up with us after testing. Thank you for allowing us to assist in her care Orders: Orders US venous duplex LE BI 1 Week I83.12 - Varicose veins of left lower extremity with inflammation Coding Level of Care Code New Pt Level 4 (99380) Diagnoses Varicose veins of left lower extremity with inflammation I83.12
[2023-06-12 13:25] VITALS: BMI 34.3
== END 2023-06-12 13:39 | disposition home or self-care (01) ==
PROVIDERS: PCP Internal Medicine; Visit Provider Surgery Vascular Surgery
DX: I83.12 Varicose veins of left lower extremity with inflammation (principal)
CPT/HCPCS: 99203

== ENCOUNTER → 2023-06-12 13:14 | Outpatient (BNVA) | payer MEDICARE, OTHER, SELFPAY | PROVIDERS: PCP Internal Medicine; Visit Provider Surgery Vascular Surgery ==

== ENCOUNTER 2023-06-20 12:33 | Outpatient (REF) | payer MEDICARE, OTHER, SELFPAY ==
--- NOTE | ~2023-06-20 | US_ITS ---
EXAMINATION: US LOWER EXTREMITY VENOUS (REFLUX EXAM), BILATERAL CLINICAL INDICATION: Varicose veins COMPARISON: None. TECHNIQUE: Color flow triplex imaging and compression Doppler was performed to evaluate both the deep and the superficial systems bilaterally. To evaluate the superficial system, the examination was performed in the upright position. Color-flow Doppler ultrasound and compression ultrasound were utilized. In addition, maneuvers were utilized to demonstrate reflux. FINDINGS: 1. DEEP VENOUS ULTRASOUND OF THE RIGHT LOWER EXTREMITY: Common Femoral Vein: Compressible, normal respiratory variation and augmented flow. Femoral Vein: Compressible, normal color flow and augmentation. Popliteal Vein: Compressible, normal augmentation. Deep Reflux: There is no evidence of reflux in the deep system in either the common femoral vein or the popliteal vein. There is no evidence of a Wiggins's cyst. 2. SUPERFICIAL ULTRASOUND WITH DOPPLER OF RIGHT LOWER EXTREMITY: GREAT SAPHENOUS VEIN: Saphenofemoral Junction: 0.6 cm; Reflux: 0 ms Proximal Thigh: 0.4 cm; Reflux: 0 ms Mid Thigh: 0.3 cm; Reflux: 0 ms Above Knee: Not visualized At Knee: Not visualized Below Knee: Not visualized Mid Calf: 0.1 cm; Reflux: 1228 ms Ankle: 0.3 cm; Reflux: 0 ms DUPLICATED MEDIAL GREAT SAPHENOUS VEIN: Diameter: None imaged Reflux: NA DUPLICATED LATERAL GREAT SAPHENOUS VEIN: Proximal: 0.3 cm; Reflux: 0 ms Distal: 0.2 cm; Reflux: 0 ms SMALL SAPHENOUS VEIN: Proximal: 0.7 cm; Reflux: 0 ms Distal: 0.3 cm; Reflux: 0 ms VEIN OF GIACOMINI: Size: NA Reflux: NA PERFORATORS: Location: None imaged Size: NA Reflux: NA VARICOSITIES: Location: None imaged Size: NA Reflux: NA 3. DEEP VENOUS ULTRASOUND OF THE LEFT LOWER EXTREMITY: Common Femoral Vein: Compressible, normal respiratory variation and augmented flow. Femoral Vein: Compressible, normal color flow and augmentation. Popliteal Vein: Compressible, normal augmentation. Deep Reflux: There is no evidence of reflux in the deep system in either the common femoral vein or the popliteal vein. There is no evidence of a Wiggins's cyst. 4. SUPERFICIAL ULTRASOUND WITH DOPPLER OF LEFT LOWER EXTREMITY: GREAT SAPHENOUS VEIN: Saphenofemoral Junction: 0.6 cm; Reflux: 0 ms Proximal Thigh: 0.5 cm; Reflux: 0 ms Mid Thigh: 0.4 cm; Reflux: 0 ms Above Knee: 0.4 cm; Reflux: 0 ms At Knee: 0.4 cm; Reflux: 0 ms Below Knee: 0.4 cm; Reflux: 0 ms Mid Calf: 0.3 cm; Reflux: 948 ms Ankle: 0.3 cm; Reflux: 0 ms DUPLICATED MEDIAL GREAT SAPHENOUS VEIN: Diameter: None imaged Reflux: NA DUPLICATED LATERAL GREAT SAPHENOUS VEIN: Proximal: 0.3 cm; Reflux: 0 ms Distal: 0.2 cm; Reflux: 0 ms SMALL SAPHENOUS VEIN: Proximal: 0.2 cm; Reflux: 0 ms Distal: 0.2 cm; Reflux: 0 ms VEIN OF GIACOMINI: Size: NA Reflux: NA PERFORATORS: Location: None imaged Size: NA Reflux: NA VARICOSITIES: Location: None Imaged Size: NA Reflux: NA US/US venous duplex LE BI IMPRESSION: 1. Right great saphenous vein reflux in the mid calf. 2. Left great saphenous venous insufficiency in the mid calf.
== END 2023-06-20 12:34 | disposition home or self-care (01) ==
LOC: HO.US 12:33
PROVIDERS: PCP Internal Medicine; Visit Provider Surgery Vascular Surgery
DX: I83.12 Varicose veins of left lower extremity with inflammation (principal)
CPT/HCPCS: 83631; 93970

== ENCOUNTER 2023-06-20 13:01 | Outpatient (REF) | payer MEDICARE, OTHER, SELFPAY ==
[2023-06-27 17:14] LABS: Lactoferrin, Fecal, Quant. <6.25 mcg/mL (<7.25)
== END 2023-06-20 13:02 | disposition home or self-care (01) ==
LOC: HO.LNP 13:01
PROVIDERS: Visit Provider Internal Medicine Gastroenterology
DX: Z13.89 Encounter for screening for other disorder (principal)
CPT/HCPCS: 83631

== ENCOUNTER 2023-06-28 09:45 | Outpatient (AMB) | payer MEDICARE, OTHER, SELFPAY ==
[2023-06-28 09:53] VITALS: BMI 34.3
--- NOTE | 2023-06-28 09:53 | MHC.OFFVIS ---
Intake Vital Signs 06/28/23 09:53 Height 5 ft 4 in Weight 200 lb BMI 34.3 Intake Visit Reasons: Newprob-Right hip injection Intake Note: Daya is a 67 year old female who presents today for a new problem visit of her left hip and back pain s/p left trochanteric injection on 05/17/23. Injection for her left hip helped and would like to have injection in her right hip. Allergies amlodipine Adverse Reaction (Verified 06/28/23 09:58) Ankle swelling lisinopril Adverse Reaction (Verified 06/28/23 09:58) Cough Medication List - Last Reconciled 06/28/23 by Susan Billings MD acetaminophen (Tylenol Extra Strength) 500 mg PO Q6H PRN atenolol 25 mg PO DAILY cholecalciferol (vitamin D3) 25 mcg PO DAILY ferrous sulfate 324 mg PO BID 90 days loratadine (Claritin) 10 mg PO DAILY PRN meclizine 25 mg PO Q6H PRN 30 days mesalamine 2.6667 grams (40.0005 mL) OK BEDTIME mesalamine ER 1.5 grams (4 x 0.375 gram) PO QAM solifenacin (Vesicare) 10 mg PO DAILY HPI HPI Comments History of Present Illness Details Here for scheduled right GT injection. Previous left side GT injection provided at least 60% relief and she was happy with that improvement. [facility] Medical History (Updated 06/28/23 @ 10:11 by Susan Billings MD) Lumbar degenerative disc disease Lumbar spondylosis Colitis Anemia HTN (hypertension) Surgical History History of esophagogastroduodenoscopy (EGD) Hx of colonoscopy H/O: hysterectomy Family History Mother Bladder cancer Brother Cancer of kidney Lung cancer Brother Lung cancer Social History Household Members: Spouse Housing: House Do you presently have visiting nurse or other home services: No Alcohol intake: never Patient Tobacco Use Status: Former Tobacco user e-Cigarette/Vaping Use: Never Used service: No Current occupational status: retired Cognitive needs: No Hearing needs: No Vision needs: Yes Physical Exam Vital Signs: BMI result Body Mass Index 34.3 Office Procedures Joint Injection/Drain Joint Injection/Drain Details: Consent obtained. Patient lies on left unaffected side with lower leg flexed and right upper leg also flexed. Tender area over the right greater trochanter is identified and marked. Area is cleansed with betadine solution. Using a 25 gauge needle, 3 ml of 2% lidocaine is injected, with the needle perpendicular to center of tender area. Then, using a spinal needle, 40 mg Kenalog is injected perpendicularly at center of tender area and slightly touching bone of greater trochanter. Patient tolerated procedure well without complications. Post-injection instructions given. Injected: 40 mg of, Kenalog and with 3 mL of (2% lidocaine) Procedure: The patient tolerated the procedure well Coding 56147 - Large joint Procedure code (CPT) selection complete Results Reviewed Results Reviewed: 06/28/23 09:50 Lidocaine HCl 2 % MPF [Xylocaine 2 % MPF] 5 ml .ROUTE .STK-MED ONE Triamcinolone Acetonide [Kenalog-40] 40 mg .ROUTE .STK-MED ONE Assessment & Plan Assessment & Plan (1) Trochanteric bursitis of right hip: Code(s): M70.61 - Trochanteric bursitis, right hip Plan Patient tolerated procedure well. Patient to call if any issues or recurrence of pain. We can do GT injections every 3 months if needed. Assessment and plan discussed with patient, and patient was agreeable. All questions were answered thoroughly. Susan Billings MD, HAYDE Board Certified, [place] [employer] and [employer] (ABPMR) Board Certified, [place] [employer] Electro[employer] (ABEM) Orders: Orders AMB Joint Injection/Aspiration Today M70.61 - Trochanteric bursitis, right hip Coding Level of Care Code Procedure Only Diagnoses Trochanteric bursitis of right hip M70.61 CPT Codes Coding - 84827 Large joint: 77500 - Large joint ([id number])
== END 2023-06-28 10:13 | disposition home or self-care (01) ==
PROVIDERS: PCP Internal Medicine; Visit Provider Physical Medicine & Rehabilitation
DX: M70.61 Trochanteric bursitis, right hip (principal)
CPT/HCPCS: 20610; 99214

== ENCOUNTER → 2023-06-28 09:45 | Outpatient (BNVA) | payer MEDICARE, OTHER, SELFPAY | PROVIDERS: PCP Internal Medicine; Visit Provider Physical Medicine & Rehabilitation | DX: M70.61 Trochanteric bursitis, right hip (principal); M47.816 Spondylosis without myelopathy or radiculopathy, lumbar region; M51.36 Other intervertebral disc degeneration, lumbar region | CPT/HCPCS: 20610; 99212; J3301 ==

== ENCOUNTER 2023-06-29 11:20 | Outpatient (AMB) | payer MEDICARE, SELFPAY ==
--- NOTE | 2023-06-29 11:22 | MHC.OFFVIS ---
Intake Vital Signs 06/29/23 11:24 Height 5 ft 4 in Weight 198 lb BMI 34.0 BP 178/65 H Blood Pressure Location Lt brachial Position Sitting Pulse 67 Intake Visit Reasons: 4-6 month fu Intake Note: Daya presents in the office as a 4 to 6 month follow up. CC: She states that she is not having any concerns today. Allergies amlodipine Adverse Reaction (Verified 06/29/23 11:24) Ankle swelling lisinopril Adverse Reaction (Verified 06/29/23 11:24) Cough HPI 4-6 month fu HPI Details RECAP: She actually presented with sudden onset left ear tinnitus with vertigo and non bloody emesis with nausea. No headache or limb weakness or slurred speech. symptoms worse with turning her head. As part of work up she had lasb drawn with HGB 8.8 and low MCY (HGB had been 13 g/dl 3 yrs ago. She does endorse occ blood mixed in stool for last several months as well as new onset post prandail diarrheal type stool. she has been taking ibuprofen for years for back pain on daily basis, with occ use of tums or pepcid for dyspepsia. Denies melena, epistaxis, hemoptysis, vaginal bleeding or hematuria. She gets v occ lower abdominal cramps. ?she had colonoscopy in 2017-found to have diverticulosis, internal hemorrhoids.? Never had EGD. ?Lives with her , denies any smoking or recreational drug use or ETOH use. 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 Duodenum, biopsy:? Chronic inactive duodenitis. B.? Stomach, biopsy:? Oxyntic mucosa with mild chronic inactive inflammation; no Helicobacter organisms seen. C.? Terminal ileum, biopsy:? Small intestinal mucosa within normal limits. D.? Colon, right, biopsy:? Colonic mucosa within normal limits. E.? Colon, sigmoid/rectum, biopsy:? Chronic, mildly active, colitis. COMMENT:? No dysplasia or granulomata are seen. INTERIM: she is feeling well stool is normal no blood in stool no diarrhea she has solid formed stools no tenesmus fecal lactoferrin was negative taking apriso daily, cut back on enema to 3 times a week EXAM: GENERAL: The patient is well developed and nontoxic. VITAL SIGNS:see workflow HEENT: Nonicteric sclerae, PERRLA, EOMI. Oropharynx clear. Moist mucous membranes. Conjunctivae appear well perfused. No thyroid mass. CHEST: Chest wall is nontender. HEART: Regular rate and rhythm without murmurs. LUNGS: Clear to auscultation bilaterally. ABDOMEN: Soft, positive bowel sounds, nontender, no organomegaly.no flank tenderness SKIN: No rash, no excessive bruising, petechiae, or purpura. NEUROLOGIC: Cranial nerves II-XII intact without motor/sensory deficit. psych- nml affect A/P: 1/ lactose intolerance 2/ Ulcerative colitis, controlled, minimal symptoms PLAN: 1/ cont meslamine enema three times a week and cont PO mesalamine - 2/ check fecal lactoferrin and labs at next visit 3/ avoid or minimize nsaids PFSH Medical History (Updated 06/28/23 @ 10:11 by Susan Billings MD) Lumbar degenerative disc disease Lumbar spondylosis Colitis Anemia HTN (hypertension) Surgical History History of esophagogastroduodenoscopy (EGD) Hx of colonoscopy H/O: hysterectomy Family History Mother Bladder cancer Brother Cancer of kidney Lung cancer Brother Lung cancer Social History Household Members: Spouse Housing: House Do you presently have visiting nurse or other home services: No Alcohol intake: never Patient Tobacco Use Status: Former Tobacco user e-Cigarette/Vaping Use: Never Used service: No Current occupational status: retired Cognitive needs: No Hearing needs: No Vision needs: Yes Physical Exam Vital Signs: Last Vital Signs Pulse 67 06/29/23 11:24 BP 178/65 H 06/29/23 11:24 BMI result Body Mass Index 34.0 Assessment & Plan Assessment & Plan (1) Ulcerative proctosigmoiditis with complication: Code(s): K51.319 - Ulcerative (chronic) rectosigmoiditis with unspecified complications Coding Level of Care Code Est Pt Level 3 (16131) Diagnoses Ulcerative proctosigmoiditis with complication K51.319
[2023-06-29 11:24] VITALS: BP 178/65; PULSE 67; BMI 34.0
== END 2023-06-29 11:37 | disposition home or self-care (01) ==
PROVIDERS: PCP Internal Medicine; Visit Provider Internal Medicine Gastroenterology
DX: K51.319 Ulcerative (chronic) rectosigmoiditis with unspecified complications (principal)
CPT/HCPCS: 99213

== ENCOUNTER → 2023-06-29 11:20 | Outpatient (BNVA) | payer MEDICARE, SELFPAY | PROVIDERS: PCP Internal Medicine; Visit Provider Internal Medicine Gastroenterology | DX: K51.319 Ulcerative (chronic) rectosigmoiditis with unspecified complications (principal) | CPT/HCPCS: 99212 ==

== ENCOUNTER 2023-07-05 12:56 | Outpatient (AMB) | payer MEDICARE, OTHER, SELFPAY ==
--- NOTE | 2023-07-05 13:00 | A.OFFVIS_ITS ---
Intake Intake Visit Reasons: Follow up 06/20 US Intake Note: Follow up US on 06/20/23 Pt states everything is ok she still getting the pain and swelling in both LE but theres not much change since her last visit Allergies amlodipine Adverse Reaction (Verified 06/29/23 11:24) Ankle swelling lisinopril Adverse Reaction (Verified 06/29/23 11:24) Cough HPI Follow up 06/20 US HPI Details Complex 67-year-old female presents for follow-up regarding swelling the lower extremities. She has this persistent swelling in addition to lower extremity pain and weakness. A lot of this could be attributed to the lumbar stenosis and she is currently being worked up by Orthopedics as well. She now presents for follow-up with venous insufficiency testing. She has had no significant interval changes and no significant improvement in terms of her swelling. [facility] Medical History Lumbar degenerative disc disease Lumbar spondylosis Colitis Anemia HTN (hypertension) Surgical History History of esophagogastroduodenoscopy (EGD) Hx of colonoscopy H/O: hysterectomy Family History Mother Bladder cancer Brother Cancer of kidney Lung cancer Brother Lung cancer Social History Household Members: Spouse Housing: House Do you presently have visiting nurse or other home services: No Alcohol intake: never Patient Tobacco Use Status: Former Tobacco user e-Cigarette/Vaping Use: Never Used service: No Current occupational status: retired Cognitive needs: No Hearing needs: No Vision needs: Yes Review of Systems Const All systems reviewed & are unremarkable except as noted in HPI and below Reports no additional complaints ENT Reports Normal hearing present Card Denies chest pain, Denies chest pain at rest, Denies chest pain with activity and Denies pedal edema Resp Denies cough GI Denies abdominal pain Musc Denies abnormal gait, Denies muscle cramps and Denies radiating pain into limb Skin/Breast Denies skin ulcer and Denies wounds Neuro Reports Normal hearing present and Denies abnormal gait Psych Reports no additional complaints Physical Exam Const General: cooperative, healthy appearing and comfortable Orientation/consciousness: oriented to person, oriented to place and oriented to time HEENT Head: Yes normal to inspection Neck Neck: Yes normal visual inspection Carotids: no bruits Chest Chest palpation & inspection: normal inspection of the chest Resp Effort & Inspection: normal respiratory effort and able to speak in complete sentences Auscultation: clear to auscultation bilaterally, no crackles, no rales, no rhonchi and no wheezes Cardio Rate: regular rate Rhythm: regular rhythm Heart sounds: S1 normal heart sound present and S2 normal heart sound present Bruits: no carotid bruits Peripheral pulses: Peripheral pulses 2+ throughout GI Inspection: Yes normal to inspection Skin Other: Right in cm: Thigh 68 Knee 53 Calf 49 Ankle 29.5 Left in cm: Thigh 65 Knee 53 Calf 45.5 Ankle 27 Hip/abdomen 108 Wounds: no wounds Hair: normal Neuro General: oriented to person, oriented to place and oriented to time Cranial nerves: Yes CN's II-XII intact bilaterally and Yes Normal hearing present Cognition (Neuro): normal cognition Motor exam (neuro): 5/5 motor strength present throughout Extrem Other: venous exam: +2 edema with skin color changes and evidence of lymphorhea General: No clubbing, No cyanosis and No edema Psych Appearance: grossly normal Mental Status: mental status grossly normal Speech and movement: Normal speech and movement present Results Reviewed Results Reviewed: Brief summary of venous insufficiency testing is as follows: right great saphenous vein: negative right small saphenous vein: negative right accessory vein: none present left great saphenous vein: negative left small saphenous vein: negative left accessory vein: none present Please note there is no evidence of any venous aneurysms or significant tortuosity Assessment & Plan Assessment & Plan (1) Varicose veins of left lower extremity with inflammation: Code(s): I83.12 - Varicose veins of left lower extremity with inflammation Plan: In short patient is essentially negative for any significant venous insufficiency. Will work her up for lymphedema (2) Lymphedema: Code(s): I89.0 - Lymphedema, not elsewhere classified Patient Instructions: In short the patient has late on sent lymphedema. The patient has been on conservative treatment for at least 3 months with minimal relief. Patient has tried 30 mm of mercury compression garments, elevation, exercise healthy diet and doing manual says self MLD to the best of their ability for over 4 weeks but with no significant relief. She has been compliant with the program but has provided minimal relief. In addition on physical we are noticing hyperpigmentation, lymphorrhea, and hyperplasia. It appears that she has stage 2 lymphedema. Patient has completed multiple forms of conservative therapy yet significant symptoms remain. Patient requires the use of a pneumatic compression device which we will assist in trying to have the patient obtain them. She does have truncal swelling. A advance pneumatic compression device will help reduce swelling and other lymphedema comorbidities including her central truncal swelling. Thank you for allowing us to assist in this patient's care. Coding Level of Care Code Est Pt Level 4 (09367) Diagnoses Varicose veins of left lower extremity with inflammation I83.12 Lymphedema I89.0
== END 2023-07-05 13:42 | disposition home or self-care (01) ==
PROVIDERS: PCP Internal Medicine; Visit Provider Surgery Vascular Surgery
DX: I83.12 Varicose veins of left lower extremity with inflammation (principal); I89.0 Lymphedema, not elsewhere classified
CPT/HCPCS: 99214

== ENCOUNTER → 2023-07-05 12:56 | Outpatient (BNVA) | payer MEDICARE, OTHER, SELFPAY | PROVIDERS: PCP Internal Medicine; Visit Provider Surgery Vascular Surgery | DX: I83.12 Varicose veins of left lower extremity with inflammation (principal); I89.0 Lymphedema, not elsewhere classified | CPT/HCPCS: 99212 ==

== ENCOUNTER 2023-07-24 09:40 | Outpatient (AMB) | payer MEDICARE, OTHER, SELFPAY ==
[2023-07-24 09:48] VITALS: BP 122/84; PULSE 75; O2SAT 95; BMI 35.1
--- NOTE | 2023-07-24 09:48 | A.OFFPC_ITS ---
Vital Signs 07/24/23 09:48 Height 5 ft 4 in Weight 204 lb 4 oz BMI 35.1 BP 122/84 Blood Pressure Location Lt brachial Position Sitting Pulse 75 Pulse Source Pulse Oximeter Pulse Oximetry (%) 95 Oxygen Delivery Method Room Air Intake Visit Reasons: 3m follow up Allergies amlodipine Adverse Reaction (Verified 07/24/23 09:50) Ankle swelling lisinopril Adverse Reaction (Verified 07/24/23 09:50) Cough Medication List - Last Reconciled 07/24/23 by Ford Krishnan MD acetaminophen (Tylenol Extra Strength) 500 mg PO Q6H PRN atenolol 25 mg PO DAILY cholecalciferol (vitamin D3) 25 mcg PO DAILY ferrous sulfate 324 mg PO BID 90 days loratadine (Claritin) 10 mg PO DAILY PRN meclizine 25 mg PO Q6H PRN 30 days mesalamine 2.6667 grams (40.0005 mL) [place] BEDTIME mesalamine ER 1.5 grams (4 x 0.375 gram) PO QAM solifenacin (Vesicare) 10 mg PO DAILY Tobacco use date assessed: 07/24/23 Fall risk assessment: No Falls in past year Last assessed Fall Risk: 07/24/23 Dental Screening Dental Screen Date: 07/24/23 Did you have a dental visit in the last 12 months?: Yes Did you have a dental problem in the last 6 months where you did not have access to dental care?: No Was dental information given to patient?: Patient has dentist HPI 3m follow up HPI Details Patient is a 67-year-old female came in today for her regular follow- up appointment Blood pressure is well controlled today at 122/84 patient is on atenolol 25 mg, tolerating medications Lymphedema: Patient has seen vascular specialist who has recommended compression stockings which patient will be getting soon. Urine urgency: Patient is on VESIcare and is doing well Allergies are stable patient is on Claritin as needed Dizziness is also stable with meclizine as needed. She continued to see Gastroenterology [facility] and is taking mesalamine for the management of ulcerative colitis patient is stable. Patient is established with [facility] orthopedic for bilateral hip pain, and has gotten cortisone injection recently which did help. 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 She has already been evaluated by the ENT. Follow-up 3 months PFS Medical History Lumbar degenerative disc disease Lumbar spondylosis Colitis Anemia HTN (hypertension) Surgical History History of esophagogastroduodenoscopy (EGD) Hx of colonoscopy H/O: hysterectomy Family History Mother Bladder cancer Brother Cancer of kidney Lung cancer Brother Lung cancer Household Members: Spouse Housing: House Do you presently have visiting nurse or other home services: No Alcohol intake: never Patient Tobacco Use Status: Former Tobacco user e-Cigarette/Vaping Use: Never Used service: No Current occupational status: retired Cognitive needs: No Hearing needs: No Vision needs: Yes Questionnaire PHQ-9 Over the last 2 weeks, how often have you been bothered by any of the following problems? 1. Little interest or pleasure in doing things: not at all 2. Feeling down, depressed, or hopeless: not at all 3. Trouble falling or staying asleep, or sleeping too much: not at all 4. Feeling tired or having little energy: not at all 5. Poor appetite or overeating: not at all 6. Feeling bad about yourself - or that you are a failure or have let yourself or your family down: not at all 7. Trouble concentrating on things, such as reading the newspaper or watching television: not at all 8. Moving or speaking so slowly that other people could have noticed. Or the opposite - being so fidgety or restless that you have been moving around a lot more than usual: not at all 9. Thoughts that you would be better off or of hurting yourself in some way: not at all Total score: 0 Depression Screening Interpretation: Negative Depression Screening Done: Yes 00016 - PHQ-9 Billing: Yes Source: Developed by Drs. Dashawn Restrepo, Jessica Worthington, Rodrigo Reynolds and colleagues, with an educational olena from [employer]. Thrive Questionnaire Date Thrive assessed: 09/12/22 LIBERTAD-7 AMB Questionnaire LIBERTAD-7 Date LIBERTAD - 7 assessed: 09/12/22 Source: Developed by Drs. Dashawn Restrepo, Jessica Worthington, Rodrigo Reynolds and colleagues, with an educational olena from [employer]. Review of Systems Const Denies chills and Denies fever(s) ENT Denies epistaxis and Denies nasal discharge Card Denies chest pain Resp Denies chest congestion, Denies cough and Denies hemoptysis GI Denies diarrhea and Denies nausea Skin/Breast Denies rash Neuro Reports no additional complaints Psych Reports no additional complaints Endo Reports no additional complaints Physical exam (Primary Care) Vital Signs: Last Vital Signs Pulse 75 07/24/23 09:48 BP 122/84 07/24/23 09:48 Pulse Ox 95 07/24/23 09:48 Oxygen Delivery Method Room Air 07/24/23 09:48 BMI result Body Mass Index 35.1 Tobacco/Smoking Status: Tobacco use Status Tobacco use date assessed 07/24/23 07/24/23 09:50 Patient Tobacco Use Status Former Tobacco user 07/24/23 09:50 e-Cigarette/Vaping Use Never Used 07/24/23 09:50 Depression Screening Interpretation: Negative Thrive Assessment: Date of Thrive Assessment Date Thrive assessed 09/12/22 07/24/23 09:50 Const General: cooperative, comfortable and no acute distress Orientation/consciousness: patient oriented x3 HENMT Head: Yes normocephalic Eyes General: appearance normal, both eyes and all related structures Neck Neck: Yes supple Resp Effort & Inspection: normal respiratory effort, no cough and no stridor Cardio Rhythm: regular rhythm Heart sounds: S1 normal heart sound present and S2 normal heart sound present Skin General skin exam: turgor normal Neuro General: patient oriented x3, tone normal and moves all extremities Extrem Other: Lymphedema both lower extremities, uses cane for ambulation Assessment and Plan Assessment & Plan (1) Hypertension, essential: Code(s): I10 - Essential (primary) hypertension (2) Lymphedema: Code(s): I89.0 - Lymphedema, not elsewhere classified (3) Peripheral vascular disease: Code(s): I73.9 - Peripheral vascular disease, unspecified (4) Overactive bladder: Code(s): N32.81 - Overactive bladder (5) Iron deficiency anemia: Code(s): D50.9 - Iron deficiency anemia, unspecified Qualifiers: Iron deficiency anemia type: chronic blood loss Qualified Code(s): D50.0 - Iron deficiency anemia secondary to blood loss (chronic) (6) Dizziness: Code(s): R42 - Dizziness and giddiness (7) Tinnitus, left: Code(s): H93.12 - Tinnitus, left ear (8) Use of cane as ambulatory aid: Code(s): Z99.89 - Dependence on other enabling machines and devices (9) Obesity due to excess calories: Code(s): E66.09 - Other obesity due to excess calories Qualifiers: Obesity classification: adult class 2 (BMI 35 - 39.9) Serious obesity comorbidity presence: with serious comorbidity Body mass index: BMI 35.0-35.9 Qualified Code(s): E66.01 - Morbid (severe) obesity due to excess calories; Z 68.35 - Body mass index [BMI] 35.0-35.9, adult Plan Patient is a 67-year-old female came in today for her regular follow-up appointment Blood pressure is well controlled today at 122/84 patient is on atenolol 25 mg, tolerating medications Lymphedema: Patient has seen vascular specialist who has recommended compression stockings which patient will be getting soon. Urine urgency: Patient is on VESIcare and is doing well Allergies are stable patient is on Claritin as needed Dizziness is also stable with meclizine as needed. She continued to see Gastroenterology [facility] and is taking mesalamine for the management of ulcerative colitis patient is stable. Patient is established with [facility] orthopedic for bilateral hip pain, and has gotten cortisone injection recently which did help. 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 She has already been evaluated by the ENT. Follow-up 3 months Orders: Orders Complete Blood Count Auto Diff Today D50.9 - Iron deficiency anemia, unspeci fied, H93.12 - Tinnitus, left ear, I10 - Essential (primary) hypertension, I73.9 - Peripheral vascular disease, unspecified, I89.0 - Lymphedema, not elsewhere classified, N32.81 - Overactive bladder, R42 - Dizziness and giddiness Comprehensive Met. Panel Today D50.9 - Iron deficiency anemia, unspecified, H93.12 - Tinnitus, left ear, I10 - Essential (primary) hypertension, I73.9 - Peripheral vascular disease, unspecified, I89.0 - Lymphedema, not elsewhere classified, N32.81 - Overactive bladder, R42 - Dizziness and giddiness Ferritin Today D50.9 - Iron deficiency anemia, unspecified, H93.12 - Tinnitus, left ear, I10 - Essential (primary) hypertension, I73.9 - Peripheral vascular disease, unspecified, I89.0 - Lymphedema, not elsewhere classified, N32.81 - Overactive bladder, R42 - Dizziness and giddiness Vitamin D 25-OH (D2 and D3) Today D50.9 - Iron deficiency anemia, unspecified, H93.12 - Tinnitus, left ear, I10 - Essential (primary) hypertension, I73.9 - Peripheral vascular disease, unspecified, I89.0 - Lymphedema, not elsewhere classified, N32.81 - Overactive bladder, R42 - Dizziness and giddiness Coding Level of Care Code Est Pt Level 4 (04492) Diagnoses Hypertension, essential I10 Lymphedema I89.0 Peripheral vascular disease I73.9 Overactive bladder N32.81 Iron deficiency anemia due to chronic blood loss D50.0 Iron deficiency anemia type: chronic blood loss Dizziness R42 Tinnitus, left H93.12 Use of cane as ambulatory aid Z99.89 Class 2 severe obesity due to excess calories with serious comorbidity and body mass index (BMI) of 35.0 to 35.9 in adult E66.01; Z68.35 Obesity classification: adult class 2 (BMI 35 - 39.9) Serious obesity comorbidity presence: with serious comorbidity Body mass index: BMI 35.0-35.9
== END 2023-07-24 10:50 | disposition home or self-care (01) ==
PROVIDERS: PCP Internal Medicine; Visit Provider Internal Medicine
DX: I10 Essential (primary) hypertension (principal); I73.9 Peripheral vascular disease, unspecified; E66.01 Morbid (severe) obesity due to excess calories; Z68.35 Body mass index [BMI] 35.0-35.9, adult; I89.0 Lymphedema, not elsewhere classified; N32.81 Overactive bladder; D50.0 Iron deficiency anemia secondary to blood loss (chronic); R42 Dizziness and giddiness; H93.12 Tinnitus, left ear; Z99.89 Dependence on other enabling machines and devices
CPT/HCPCS: 99214

== ENCOUNTER 2023-08-14 09:40 | Outpatient (REF) | payer MEDICARE, OTHER, SELFPAY ==
[2023-08-14 13:42] LABS: MANUAL DIFF FLAG NO
[2023-08-14 13:52] LABS: Basophils Absolute Auto 0.1 X10*3/uL (0.0-0.2); Basophils Percent Auto 0.6 % (0-2); Eosinophils Absolute Auto 0.2 X10*3/uL (0.0-0.4); Eosinophils Percent Auto 2.5 % (0-4); Hematocrit 43.5 % (37.0-47.0); Hemoglobin 13.7 g/dl (12.0-16.0); Imm Gran Abs Auto 0.03 X10*3/uL (0.00-0.03); Imm Gran Pct Auto 0.3 % (0.0-0.4); Lymphocytes Absolute Auto 1.7 X10*3/uL (1.2-4.9); Lymphocytes Percent Auto 19.2 % (20-40); Mean Corpuscular HGB Conc 31.5 g/dl (31.0-35.0); Mean Corpuscular Hemoglobin 27.6 pg (27.0-33.0); Mean Corpuscular Volume 87.7 fL (80.0-98.0); Mean Platelet Volume 8.9 fL (9.4-12.3); Monocytes Absolute Auto 0.7 X10*3/uL (0.1-1.2); Monocytes Percent Auto 7.7 % (2-11); Neutrophils Absolute Auto 6.1 x10*3/uL (2.0-8.3); Neutrophils Percent Auto 69.7 % (45-73); Platelet Count 259 X10*3/uL (160-400); Red Blood Count 4.96 X10*6/uL (4.20-5.50); White Blood Count 8.7 X10*3/uL (4.8-10.8)
[2023-08-14 14:30] LABS: Alanine Aminotransferase 7 U/L (0-31); Albumin Level 4.1 g/dL (3.5-5.0); Alkaline Phosphatase 62 U/L (39-117); Anion Gap 15 (12-20); Aspartate Amino Transferase 12 U/L (5-31); Bilirubin Total 0.6 mg/dL (0.0-1.0); Blood Urea Nitrogen 14 mg/dL (9-16); Calcium 9.8 mg/dL (8.4-10.2); Carbon Dioxide 26 mmol/L (22-29); Chloride 103 mmol/L (96-108); Estimated Glomerular Filt Rate > 60; Glucose Random 93 mg/dL (60-115); Potassium 3.7 mmol/L (3.3-5.1); Sodium 140 mmol/L (135-145); Total Protein 7.9 g/dL (6.5-8.0)
[2023-08-14 14:50] LABS: Ferritin 102 ng/mL (10-250)
[2023-08-20 13:23] LABS: Vitamin D 25-OH, D2 <4 ng/mL; Vitamin D 25-OH, D3 23 ng/mL; Vitamin D 25-OH, Total 23 ng/mL (30-100)
== END 2023-08-14 09:41 | disposition home or self-care (01) ==
LOC: HO.HMGCLDS 09:40
PROVIDERS: PCP Internal Medicine; Visit Provider Internal Medicine
DX: I89.0 Lymphedema, not elsewhere classified (principal); I73.9 Peripheral vascular disease, unspecified; N32.81 Overactive bladder; D50.9 Iron deficiency anemia, unspecified; I10 Essential (primary) hypertension; R42 Dizziness and giddiness; H93.12 Tinnitus, left ear; Z78.0 Asymptomatic menopausal state
CPT/HCPCS: 36415; 80053; 82306; 82728; 85025

== ENCOUNTER 2023-09-25 14:25 | Outpatient (REF) | payer MEDICARE, OTHER, SELFPAY ==
--- NOTE | ~2023-09-25 | MM_ITS ---
EXAMINATION: BONE DENSITOMETRY CLINICAL INDICATION: Menopausal state. COMPARISON: This is the patient's baseline examination. TECHNIQUE: Using a [employer] DXA System (software version: 13.1) manufactured by [employer], dual-energy x-ray absorptiometry was performed of the lumbar spine and left hip. The images are of good technical quality. Summary results are attached. FINDINGS: LEFT FEMUR, NECK: BMD 0.652 g/cm2, Z-score -1.7, T-score -2.8, osteoporosis. LEFT FEMUR, TOTAL: BMD 0.659 g/cm2, Z-score -2.0, T-score -2.8, osteoporosis. AP SPINE L1-L4: BMD 0.895 g/cm2, Z-score -1.6, T-score -2.4, osteopenia. IDENTIFIED RISK FACTORS: Bilateral oophorectomy, family history (parent hip fracture), hysterectomy, menopause. HISTORY OF FRACTURE: None listed. MEDICATIONS: Vitamin D. MM/XR DEXA axial skeleton IMPRESSION: 1. DIAGNOSIS: Osteoporosis based on the lowest T-score value of -2.8 in the femur neck and total femur applying World Health Organization criteria. 2. 10-YEAR FRACTURE RISK PREDICTION, FRAX: According to the guidelines, FRAX calculation should only be performed on patients in the osteopenia bone density category. Therefore, FRAX was not performed on this patient. 3. Treatment Recommendations: NOF guidelines recommend consideration for treatment in postmenopausal women and men age 50 and older presenting with the following: -A hip or vertebral (clinical or morphometric) fracture. -T-score less than or equal to -2.5 at the femoral neck or spine after appropriate evaluation to exclude secondary causes. -Low bone mass at the hip or spine and a 10-year fracture probability by FRAX of greater than or equal to 3% for hip fracture or greater than or equal to 20% for major osteoporotic fracture based on the [place] adapted WHO algorithm. 4. Other Recommendations: All treatment decisions require clinical judgment and consideration of individual patient factors, including patient preferences, comorbidities, previous drug use, risk factors not captured in the FRAX model (e.g. frailty, falls, vitamin D deficiency, increased bone turnover, interval significant decline in bone density) and possible under or overestimation of fracture risk by FRAX. Additional medical evaluation for secondary cause of low bone mineral density may be appropriate. FUTURE SCAN RECOMMENDATION: People with diagnosed cases of osteoporosis or at high risk for fracture should have regular bone mineral density tests. For patients eligible for Medicare, routine testing is allowed once every 2 years. The testing frequency can be increased to one year for patients who have rapidly progressing disease, those who are receiving or discontinuing medical therapy to restore bone mass, or have additional risk factors.
== END 2023-09-25 14:26 | disposition home or self-care (01) ==
LOC: HO.MAMMO 14:25
PROVIDERS: PCP Internal Medicine; Visit Provider Internal Medicine
DX: Z12.31 Encounter for screening mammogram for malignant neoplasm of breast (principal); Z13.820 Encounter for screening for osteoporosis; Z78.0 Asymptomatic menopausal state
CPT/HCPCS: 77063; 77067; 77080

== ENCOUNTER → 2023-09-25 15:00 | Outpatient (BNV) | payer MEDICARE, OTHER, SELFPAY | PROVIDERS: PCP Internal Medicine; Visit Provider Radiology Diagnostic Radiology | DX: Z12.31 Encounter for screening mammogram for malignant neoplasm of breast (principal) | CPT/HCPCS: 77063; 77067 ==

== ENCOUNTER 2023-10-24 08:36 | Outpatient (AMB) | payer MEDICARE, OTHER, SELFPAY ==
--- NOTE | 2023-10-24 08:42 | MHC.PC.OV ---
Vital Signs 10/24/23 08:43 Height 5 ft 4 in Weight 203 lb 6 oz BMI 34.9 BP 138/92 H Blood Pressure Location Lt brachial Position Sitting Pulse 79 Pulse Source Pulse Oximeter Pulse Oximetry (%) 95 Oxygen Delivery Method Room Air Intake Visit Reasons: 6m follow up Allergies amlodipine Adverse Reaction (Verified 10/24/23 08:43) Ankle swelling lisinopril Adverse Reaction (Verified 10/24/23 08:43) Cough Medication List - Last Reconciled 10/24/23 by Ford Krishnan MD acetaminophen (Tylenol Extra Strength) 500 mg PO Q6H PRN atenolol 25 mg PO DAILY cholecalciferol (vitamin D3) 25 mcg PO DAILY ferrous sulfate 324 mg PO BID 90 days loratadine (Claritin) 10 mg PO DAILY PRN meclizine 25 mg PO Q6H PRN 30 days mesalamine 2.6667 grams (40.0005 mL) IN BEDTIME mesalamine ER 1.5 grams (4 x 0.375 gram) PO QAM solifenacin (Vesicare) 10 mg PO DAILY Tobacco use date assessed: 10/24/23 Fall risk assessment: No Falls in past year Last assessed Fall Risk: 10/24/23 Dental Screening Dental Screen Date: 10/24/23 Did you have a dental visit in the last 12 months?: Yes Did you have a dental problem in the last 6 months where you did not have access to dental care?: No Was dental information given to patient?: Patient has dentist HPI 6m follow up HPI Details Fosamax added osteoporosis -2.8 Iron once a day Labs to be repeated next visit order placed have appointment in January Blood pressure is slightly elevated today Patient is a 67-year-old female came in today for her regular follow-up appointment Blood pressure is well controlled today at 122/84 patient is on atenolol 25 mg, tolerating medications Lymphedema: Patient has seen vascular specialist who has recommended compression stockings which patient will be getting soon. Urine urgency: Patient is on VESIcare and is doing well Allergies are stable patient is on Claritin as needed Dizziness is also stable with meclizine as needed. She continued to see [facility] and is taking mesalamine for the management of ulcerative colitis patient is stable. Patient is established with [facility] orthopedic for bilateral hip pain, and has gotten cortisone injection recently which did help. 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 She has already been evaluated by the ENT. Follow-up 3 months FORMERLY [facility], [facility] Medical History Lumbar degenerative disc disease Lumbar spondylosis Colitis Anemia HTN (hypertension) Surgical History History of esophagogastroduodenoscopy (EGD) Hx of colonoscopy H/O: hysterectomy Family History Mother Bladder cancer Brother Cancer of kidney Lung cancer Brother Lung cancer Social History Household Members: Spouse Housing: House Do you presently have visiting nurse or other home services: No Alcohol intake: never Patient Tobacco Use Status: Former Tobacco user e-Cigarette/Vaping Use: Never Used service: No Current occupational status: retired Cognitive needs: No Hearing needs: No Vision needs: Yes Questionnaire PHQ-9 Over the last 2 weeks, how often have you been bothered by any of the following problems? 1. Little interest or pleasure in doing things: not at all 2. Feeling down, depressed, or hopeless: not at all 3. Trouble falling or staying asleep, or sleeping too much: not at all 4. Feeling tired or having little energy: not at all 5. Poor appetite or overeating: not at all 6. Feeling bad about yourself - or that you are a failure or have let yourself or your family down: not at all 7. Trouble concentrating on things, such as reading the newspaper or watching television: not at all 8. Moving or speaking so slowly that other people could have noticed. Or the opposite - being so fidgety or restless that you have been moving around a lot more than usual: not at all 9. Thoughts that you would be better off or of hurting yourself in some way: not at all Total score: 0 Depression Screening Interpretation: Negative Depression Screening Done: Yes 89451 - PHQ-9 Billing: Yes Source: Developed by Drs. Dashawn Restrepo, Jessica Worthington, Rodrigo Reynolds and colleagues, with an educational olena from [employer]. Thrive Questionnaire Date Thrive assessed: 10/24/23 I am a: Patient What is your living situation today?: I have a steady place to live Within the past 12 months, did the food you bought not last and you didn't have the money to get more?: Never true Within the past 12 months, did you worry whether your food would run out before you got money to buy more?: Never true Do you have trouble paying for medicines?: No Do you have trouble getting transportation to medical appointments?: No Do you have trouble paying your heating and electricity bill?: No Do you have trouble taking care of your child, family member or friend?: No Do you have trouble with day-to-day activities such as bathing, preparing meals, shopping, managing finances, etc.?: No Are you currently unemployed and looking for a job?: No Are you interested in more education?: No Please select the resources that you would like help with: None Currently or been in a relationship where the following occur: no concerns reported THRIVE Score: 0 AUDIT C Alcohol Use Questionnaire (AUDIT-C) 1. How often do you have a drink containing alcohol?: Never 3. How often do you have six or more drinks on one occasion?: Never Total Score: 0 Score Reviewed/Action Taken: Yes LIBERTAD-7 AMB Questionnaire LIBERTAD-7 Date LIBERTAD - 7 assessed: 10/24/23 Feeling nervous, anxious, or on edge: 0 = Not at all Not being able to stop or control worryin = Not at all Worrying too much about different things: 0 = Not at all Trouble relaxin = Not at all Being so restless that it is hard to sit still: 0 = Not at all Becoming easily annoyed or irritable: 0 = Not at all Feeling afraid as if something awful might happen: 0 = Not at all Total LIBERTAD-7 score (0-4 normal; 5-9 mild; 10-14 moderate; 15-21 severe): 0 Source: Developed by Drs. Dashawn Restrepo, Jessica Worthington, Rodrigo Reynolds and colleagues, with an educational olena from [employer]. LIBERTAD-7 Assessment Billing LIBERTAD-7 Assessment Tool: LIBERTAD-7 Assessment 73139 Review of Systems Const Denies chills and Denies fever(s) ENT Denies epistaxis and Denies nasal discharge Card Denies chest pain Resp Denies chest congestion, Denies cough and Denies hemoptysis GI Denies diarrhea and Denies nausea Skin/Breast Denies rash Neuro Reports no additional complaints Psych Reports no additional complaints Endo Reports no additional complaints Physical exam (Primary Care) Vital Signs: Last Vital Signs Pulse 79 10/24/23 08:43 BP 138/92 H 10/24/23 08:43 Pulse Ox 95 10/24/23 08:43 Oxygen Delivery Method Room Air 10/24/23 08:43 BMI result Body Mass Index 34.9 Tobacco/Smoking Status: Tobacco use Status Tobacco use date assessed 10/24/23 10/24/23 08:46 Patient Tobacco Use Status Former Tobacco user 10/24/23 08:46 e-Cigarette/Vaping Use Never Used 10/24/23 08:46 PHQ-9: PHQ-9 Score PHQ-9: Total score 0 10/24/23 09:09 Depression Screening Interpretation: Negative Thrive Assessment: Date of Thrive Assessment Date Thrive assessed 10/24/23 10/24/23 09:09 Currently or been in a relationship where the following occur: no concerns reported Const General: cooperative, comfortable and no acute distress Orientation/consciousness: patient oriented x3 HENMT Head: Yes normocephalic Eyes General: appearance normal, both eyes and all related structures Neck Neck: Yes supple Resp Effort & Inspection: normal respiratory effort, no cough and no stridor Cardio Rhythm: regular rhythm Heart sounds: S1 normal heart sound present and S2 normal heart sound present Skin General skin exam: turgor normal Neuro General: patient oriented x3, tone normal and moves all extremities Extrem Other: Lymphedema both lower extremities, uses cane for ambulation Assessment and Plan Assessment & Plan (1) Hypertension, essential: Code(s): I10 - Essential (primary) hypertension (2) Iron deficiency anemia: Code(s): D50.9 - Iron deficiency anemia, unspecified Qualifiers: Iron deficiency anemia type: chronic blood loss Qualified Code(s): D50.0 - Iron deficiency anemia secondary to blood loss (chronic) (3) Obesity due to excess calories: Code(s): E66.09 - Other obesity due to excess calories Qualifiers: Body mass index: BMI 35.0-35.9 Obesity classification: adult class 2 (BMI 35 - 39.9) Serious obesity comorbidity presence: with serious comorbidity Qualified Code(s): E66.01 - Morbid (severe) obesity due to excess calories; Z68.35 - Body mass index [BMI] 35.0-35.9, adult (4) Age related osteoporosis: Code(s): M81.0 - Age-related osteoporosis without current pathological fracture Qualifiers: Presence of current pathological fracture: without current pathological fracture Qualified Code(s): M81.0 - Age-related osteoporosis without current pathological fracture (5) Osteoarthritis, knee: Code(s): M17.10 - Unilateral primary osteoarthritis, unspecified knee Qualifiers: Laterality: bilateral Osteoarthritis type: primary Qualified Code(s): M17.0 - Bilateral primary osteoarthritis of knee (6) Overactive bladder: Code(s): N32.81 - Overactive bladder (7) Peripheral vascular disease: Code(s): I73.9 - Peripheral vascular disease, unspecified (8) Lumbar degenerative disc disease: Code(s): M51.36 - Other intervertebral disc degeneration, lumbar region (9) Lymphedema: Code(s): I89.0 - Lymphedema, not elsewhere classified (10) Colitis: Code(s): K52.9 - Noninfective gastroenteritis and colitis, unspecified (11) Use of cane as ambulatory aid: Code(s): Z99.89 - Dependence on other enabling machines and devices Orders: Orders Ferritin Today D50.9 - Iron deficiency anemia, unspecified, E66.09 - Other obesity due to excess calories, I10 - Essential (primary) hypertension, I73.9 - Peripheral vascular disease, unspecified, I89.0 - Lymphedema, not elsewhere classified, M17.10 - Unilateral primary osteoarthritis, unspecified knee, M51.36 - Other intervertebral disc degeneration, lumbar region, M81.0 - Age-related osteoporosis without current pathological fracture, N32.81 - Overactive bladder Vitamin D 25-OH (D2 and D3) Today D50.9 - Iron deficiency anemia, unspecified, E66.09 - Other obesity due to excess calories, I10 - Essential (primary) hypertension, I73.9 - Peripheral vascular disease, unspecified, I89.0 - Lymphedema, not elsewhere classified, M17.10 - Unilateral primary osteoarthritis, unspecified knee, M51.36 - Other intervertebral disc degeneration, lumbar region, M81.0 - Age-related osteoporosis without current pathological fracture, N32.81 - Overactive bladder Complete Blood Count Auto Diff Today D50.9 - Iron deficiency anemia, unspecified, E66.09 - Other obesity due to excess calories, I10 - Essential (primary) hypertension, I73.9 - Peripheral vascular disease, unspecified, I89.0 - Lymphedema, not elsewhere classified, K52.9 - Noninfective gastroenteritis and colitis, unspecified, M17.10 - Unilateral primary osteoarthritis, unspecified knee, M51.36 - Other intervertebral disc degeneration, lumbar region, M81.0 - Age-related osteoporosis without current pathological fracture, N32.81 - Overactive bladder Comprehensive [place]. Panel Fast Today D50.9 - Iron deficiency anemia, unspecified, E66.09 - Other obesity due to excess calories, I10 - Essential (primary) hypertension, I73.9 - Peripheral vascular disease, unspecified, I89.0 - Lymphedema, not elsewhere classified, M17.10 - Unilateral primary osteoarthritis, unspecified knee, M51.36 - Other intervertebral disc degeneration, lumbar region, M81.0 - Age-related osteoporosis without current pathological fracture, N32.81 - Overactive bladder Lipid Panel Today D50.9 - Iron deficiency anemia, unspecified, E66.09 - Other obesity due to excess calories, I10 - Essential (primary) hypertension, I73.9 - Peripheral vascular disease, unspecified, I89.0 - Lymphedema, not elsewhere classified, M17.10 - Unilateral primary osteoarthritis, unspecified knee, M51.36 - Other intervertebral disc degeneration, lumbar region, M81.0 - Age-related osteoporosis without current pathological fracture, N32.81 - Overactive bladder Medications: New alendronate (Fosamax) Take on empty stomach and stay upright for half an hour 70 mg PO QWEEK 13 tabs 0RF Osteoporosis 90 days Coding Level of Care Code Est Pt Level 4 (87209) Diagnoses Hypertension, essential I10 Iron deficiency anemia due to chronic blood loss D50.0 Iron deficiency anemia type: chronic blood loss Class 2 severe obesity due to excess calories with serious comorbidity and body mass index (BMI) of 35.0 to 35.9 in adult E66.01; Z68.35 Body mass index: BMI 35.0-35.9 Obesity classification: adult class 2 (BMI 35 - 39.9) Serious obesity comorbidity presence: with serious comorbidity Age-related osteoporosis without current pathological fracture M81.0 Presence of current pathological fracture: without current pathological fracture Primary osteoarthritis of both knees M17.0 Laterality: bilateral Osteoarthritis type: primary Overactive bladder N32.81 Peripheral vascular disease I73.9 Lumbar degenerative disc disease M51.36 Lymphedema I89.0 Colitis K52.9 Use of cane as ambulatory aid Z99.89 Additional Codes LIBERTAD-7 Assessment Billing - LIBERTAD-7 Assessment Tool: LIBERTAD-7 Assessment 15694 ([id number])
[2023-10-24 08:43] VITALS: BP 138/92; PULSE 79; O2SAT 95; BMI 34.9
== END 2023-10-24 12:06 | disposition home or self-care (01) ==
PROVIDERS: PCP Internal Medicine; Visit Provider Internal Medicine
DX: I10 Essential (primary) hypertension (principal); I73.9 Peripheral vascular disease, unspecified; E66.01 Morbid (severe) obesity due to excess calories; Z68.35 Body mass index [BMI] 35.0-35.9, adult; D50.0 Iron deficiency anemia secondary to blood loss (chronic); M81.0 Age-related osteoporosis without current pathological fracture; M17.0 Bilateral primary osteoarthritis of knee; N32.81 Overactive bladder; M51.36 Other intervertebral disc degeneration, lumbar region; I89.0 Lymphedema, not elsewhere classified; K52.9 Noninfective gastroenteritis and colitis, unspecified; Z99.89 Dependence on other enabling machines and devices
CPT/HCPCS: 99214

== ENCOUNTER 2024-01-22 08:48 | Outpatient (AMB) | payer MEDICARE, OTHER, SELFPAY ==
[2024-01-22 08:52] VITALS: BP 132/86; PULSE 75; O2SAT 95; BMI 34.9
--- NOTE | 2024-01-22 08:52 | A.OFFVIS_ITS ---
Intake Vital Signs 01/22/24 08:52 Height 5 ft 4 in Weight 203 lb 4 oz BMI 34.9 BP 132/86 Blood Pressure Location Lt brachial Position Sitting Pulse 75 Pulse Source Pulse Oximeter Pulse Oximetry (%) 95 Oxygen Delivery Method Room Air Intake Visit Reasons: SWV [id number] Allergies amlodipine Adverse Reaction (Verified 01/22/24 08:54) Ankle swelling lisinopril Adverse Reaction (Verified 01/22/24 08:54) Cough Medication List - Last Reconciled 01/22/24 by Ford Krishnan MD acetaminophen (Tylenol Extra Strength) 500 mg PO Q6H PRN alendronate (Fosamax) 70 mg PO QWEEK 90 days atenolol 25 mg PO DAILY cholecalciferol (vitamin D3) 25 mcg PO DAILY ferrous sulfate 324 mg PO BID 90 days loratadine (Claritin) 10 mg PO DAILY PRN meclizine 25 mg PO Q6H PRN 30 days mesalamine 2.6667 grams (40.0005 mL) [place] BEDTIME mesalamine ER 1.5 grams (4 x 0.375 gram) PO QAM solifenacin (Vesicare) 10 mg PO DAILY HPI SWV G0439 HPI Details Patient is a 68-year-old female with a history of osteoporosis, hypertension, iron-deficiency anemia, allergies, overactive bladder, lymphedema bilateral legs, chronic vertigo, chronic tinnitus left ear, varicose veins left lower extremity, DJD lumbar spine, peripheral vascular disease, obesity, osteoarthritis multiple joints, and ulcerative proctosigmoiditis She came in today for Medicare wellness visit and is due for regular follow-up Patient is also due for labs Patient is established with gastroenterology and is taking a medication for ulcerative colitis, patient is doing well Blood pressure is well controlled today at 132/86, patient is on atenolol 25 mg, tolerating medications Lymphedema: Patient has seen vascular specialist who has recommended compression stockings Urine urgency: Patient is on VESIcare and is doing well Allergies are stable patient is on Claritin as needed Dizziness is also stable with meclizine as needed. Patient is established with [facility] orthopedic for bilateral hip pain, and has gotten cortisone injection in the past She has chronic left ear tinnitus with hearing loss. She has already been evaluated by the ENT. Patient also suffers from chronic vertigo but is doing well at this time Follow-up 3 months HPI Comments History of Present Illness Details AWV Medical/social history reviewed Past medical history reviewed [place] of care / care team list updated Surgical/ hospitalization history reviewed Current medications including OTC and supplements reviewed Family history reviewed Tobacco controlled form updated Alcohol use form updated Illicit drug use in social history reviewed Current diagnosis of depression ?screening updated Appropriate PHQ 2/PHQ-9 completed . Vital signs reviewed Alcohol tobacco drug use reviewed and discussed . MMSE completed . ? Fall risk: ?Assessed Fall history: ?None Have you had any falls with injury in the past year?? No Have you had 2 or more falls in the past year?? No Fall risk assessment completed Home safety discussed with the patient Functional ability assessed and discussed and documented Activities of daily living reviewed and appropriate actions taken . HRA filled out by the patient and reviewed by provider and scanned . Appropriate written screening schedule established . Any health advise needed provided . Advance care planning discussed with the patient , necessary paperwork filled Examination IPPE/AWE: Balance intact Romberg intact Tandem walk failed walk-in turn intact rise from sit to stand intact . ?Hearing ?whisper test failed . Medication list reviewed, patient is stable on medications All other providers patient is seeing discussed and noted . [facility] Medical History Lumbar degenerative disc disease Lumbar spondylosis Colitis Anemia HTN (hypertension) Surgical History History of esophagogastroduodenoscopy (EGD) Hx of colonoscopy H/O: hysterectomy Family History Mother Bladder cancer Brother Cancer of kidney Lung cancer Brother Lung cancer Social History Household Members: Spouse Housing: House Do you presently have visiting nurse or other home services: No Alcohol intake: never Patient Tobacco Use Status: Former Tobacco user e-Cigarette/Vaping Use: Never Used service: No Current occupational status: retired Cognitive needs: No Hearing needs: No Vision needs: Yes Questionnaire Medicare Wellness Checkup [age] What gender do you identify with?: female During the past 4 weeks, how much have you been bothered by emotional problems such as feeling anxious, depressed, irritable, sad or downhearted, and blue?: not at all During the past 4 weeks, has your physical & emotional health limited your social activities with family, friends, neighbors, or groups?: not at all During the past 4 weeks, how much bodily pain have you generally had?: mild pain During the past 4 weeks, was someone available to help you if you needed & wanted help?: yes, as much as I wanted During the past 4 weeks, what was the hardest physical activity you could do for at least 2 minutes?: moderate Can you get to places out of walking distance without help? (For eg., can you travel alone on buses, taxis or drive your car?): Yes Can you go shopping for groceries or clothes without someone's help?: Yes Can you prepare your own meals?: Yes Can you do your housework without help?: Yes Because of any health problems, do you need the help of another person with your personal care needs such as eating, bathing, dressing or getting around the h ouse?: No Can you handle your own money without help?: Yes During the past 4 weeks, how would you rate your health in general?: good During the past 4 weeks how have things been going for you?: pretty well Are you having difficulties driving your car?: no Do you always fasten your seat belt when you are in a car?: yes, usually During past 4 weeks, have you been bothered by the following: never: Sexual problems?, Trouble eating well? and Problems using the telephone? and seldom: Falling or dizzy when standing up, Teeth or denture problems? and Tiredness or fatigue? Have you fallen 2 or more times in the past year?: No Are you afraid of falling?: No Are you a smoker?: no During the past 4 weeks, how many drinks of wine, beer, or other alcoholic beverages did you have?: no alcohol at all Do you exercise for about 20 minutes 3 or more times a week?: yes, most of the time Have you been given information to help with the following?: no: Hazards in your house that might hurt you? and no: Keeping track of your medications? How often do you have trouble taking medicines the way you have been told to take them?: I always take medicine as prescribed How confident are you that you can control & manage most of your health problems?: very confident What is your race?: White Mini Mental State Exam (MMSE) Orientation What is the (year) (season) (date) (day) (month)?: year, season, date, day and month Where are we (state) (county) (town or city) (hospital) (floor)?: state, county, town or city, hospital/clinic and floor Score Score: 10 Activity of Daily Living Bathing - sponge bath, tub bath or shower: receives no assistance (gets in/out by self, if usual bathing means Dressing - getting clothes from closets & drawers, including inner/outer garments & fasteners.: gets clothes & gets completely dressed without help Toileting - going to the 'toilet room' for urine/bowel elimination & cleaning self/arranging clothes: goes to toilet room, cleans self, arranges clothes without help Transfer: moves in & out of bed and chair without help (may use support object) Continence: has occasional 'accidents' Feeding: feeds self without help Total Score: 0 Information obtained from: patient Using telephone: independent Traveling: needs assistance Shopping: needs assistance Preparing meals: independent Housework: needs assistance Taking medicine: independent Managing money: independent PHQ-9 Over the last 2 weeks, how often have you been bothered by any of the following problems? 1. Little interest or pleasure in doing things: not at all 2. Feeling down, depressed, or hopeless: not at all 3. Trouble falling or staying asleep, or sleeping too much: not at all 4. Feeling tired or having little energy: not at all 5. Poor appetite or overeating: not at all 6. Feeling bad about yourself - or that you are a failure or have let yourself or your family down: not at all 7. Trouble concentrating on things, such as reading the newspaper or watching television: not at all 8. Moving or speaking so slowly that other people could have noticed. Or the opposite - being so fidgety or restless that you have been moving around a lot more than usual: not at all 9. Thoughts that you would be better off or of hurting yourself in some way: not at all Total score: 0 Depression Screening Interpretation: Negative Depression Screening Done: Yes 29296 - PHQ-9 Billing: Yes Source: Developed by Drs. Dashawn Restrepo, Jessica Worthington, Rodrigo Reynolds and colleagues, with an educational olena from [employer]. Review of Systems Const Denies chills and Denies fever(s) ENT Denies epistaxis and Denies nasal discharge Card Denies chest pain Resp Denies chest congestion, Denies cough and Denies hemoptysis GI Denies diarrhea and Denies nausea Skin/Breast Denies rash Neuro Reports no additional complaints Psych Reports no additional complaints Endo Reports no additional complaints Physical Exam Vital Signs: Last Vital Signs Pulse 75 01/22/24 08:52 BP 132/86 01/22/24 08:52 Pulse Ox 95 01/22/24 08:52 Oxygen Delivery Method Room Air 01/22/24 08:52 BMI result Body Mass Index 34.9 Const General: cooperative, comfortable and no acute distress Orientation/consciousness: patient oriented x3 HEENT Head: Yes normocephalic Eyes General: appearance normal, both eyes and all related structures Neck Other: Supple Neck: Yes supple Resp Effort & Inspection: normal respiratory effort, no cough and no stridor Cardio Rhythm: regular rhythm Heart sounds: S1 normal heart sound present and S2 normal heart sound present Skin General skin exam: turgor normal Neuro Other: Motor sensory intact General: patient oriented x3, tone normal and moves all extremities Extrem Other: No lower extremity swelling. Right lower extremity: no edema Left lower extremity: no edema Psych Other: Normal effect, speech clear Assessment & Plan Assessment & Plan (1) Hypertension, essential: Code(s): I10 - Essential (primary) hypertension (2) Osteoarthritis, knee: Code(s): M17.10 - Unilateral primary osteoarthritis, unspecified knee Qualifiers: Osteoarthritis type: primary Laterality: bilateral Qualified Code(s): M17.0 - Bilateral primary osteoarthritis of knee (3) Obesity due to excess calories: Code(s): E66.09 - Other obesity due to excess calories Qualifiers: Obesity classification: adult class 2 (BMI 35 - 39.9) Serious obesity comorbidity presence: with serious comorbidity Body mass index: BMI 35.0-35.9 Qualified Code(s): E66.01 - Morbid (severe) obesity due to excess calories; Z68.35 - Body mass index [BMI] 35.0-35.9, adult (4) Overactive bladder: Code(s): N32.81 - Overactive bladder (5) Peripheral vascular disease: Code(s): I73.9 - Peripheral vascular disease, unspecified (6) Lumbar degenerative disc disease: Code(s): M51.36 - Other intervertebral disc degeneration, lumbar region (7) Lymphedema: Code(s): I89.0 - Lymphedema, not elsewhere classified (8) Age related osteoporosis: Code(s): M81.0 - Age-related osteoporosis without current pathological fracture Qualifiers: Presence of current pathological fracture: without current pathological fracture Qualified Code(s): M81.0 - Age-related osteoporosis without current pathological fracture (9) Ulcerative proctosigmoiditis with complication: Code(s): K51.319 - Ulcerative (chronic) rectosigmoiditis with unspecified complications Plan Patient is a 68-year-old female with a history of osteoporosis, hypertension, iron-deficiency anemia, allergies, overactive bladder, lymphedema bilateral legs, chronic vertigo, chronic tinnitus left ear, varicose veins left lower extremity, DJD lumbar spine, peripheral vascular disease, obesity, osteoarth ritis multiple joints, and ulcerative proctosigmoiditis Patient is established with gastroenterology and is taking a medication for ulcerative colitis, patient is doing well Blood pressure is well controlled today at 132/86, patient is on atenolol 25 mg, tolerating medications Lymphedema: Patient has seen vascular specialist who has recommended compression stockings Urine urgency: Patient is on VESIcare and is doing well Allergies are stable patient is on Claritin as needed Dizziness is also stable with meclizine as needed. Patient is established with [facility] orthopedic for bilateral hip pain, and has gotten cortisone injection in the past She has chronic left ear tinnitus with hearing loss. She has already been evaluated by the ENT. Patient also suffers from chronic vertigo but is doing well at this time Follow-up 3 months Quality Reporting (2019) Depression/Bipolar (159/160/161/177) PHQ-9: Total score: 0 Coding Level of Care Code Medicare Subsequent (G0439) Est Pt Level 4 (89322) Diagnoses Hypertension, essential I10 Primary osteoarthritis of both knees M17.0 Osteoarthritis type: primary Laterality: bilateral Class 2 severe obesity due to excess calories with serious comorbidity and body mass index (BMI) of 35.0 to 35.9 in adult E66.01; Z68.35 Obesity classification: adult class 2 (BMI 35 - 39.9) Serious obesity comorbidity presence: with serious comorbidity Body mass index: BMI 35.0-35.9 Overactive bladder N32.81 Peripheral vascular disease I73.9 Lumbar degenerative disc disease M51.36 Lymphedema I89.0 Age-related osteoporosis without current pathological fracture M81.0 Presence of current pathological fracture: without current pathological fracture Ulcerative proctosigmoiditis with complication K51.319 CPT Codes Advance Care Planning - Time spent: 1-15 minutes, on File ([id number]) Advance Care Planning Advance Care Planning discussion: Completed/Scanned Forms completed: Health Care Proxy and MOLST Time spent: 1-15 minutes, on File
== END 2024-01-22 09:25 | disposition home or self-care (01) ==
PROVIDERS: PCP Internal Medicine; Visit Provider Internal Medicine
DX: Z00.00 Encounter for general adult medical examination without abnormal findings (principal); E66.01 Morbid (severe) obesity due to excess calories; I73.9 Peripheral vascular disease, unspecified; Z68.35 Body mass index [BMI] 35.0-35.9, adult; K51.319 Ulcerative (chronic) rectosigmoiditis with unspecified complications; I10 Essential (primary) hypertension; M17.0 Bilateral primary osteoarthritis of knee; N32.81 Overactive bladder; M51.36 Other intervertebral disc degeneration, lumbar region; I89.0 Lymphedema, not elsewhere classified; M81.0 Age-related osteoporosis without current pathological fracture
CPT/HCPCS: 1123F; 99214; G0439

== ENCOUNTER 2024-01-24 06:56 | Outpatient (REF) | payer MEDICARE, OTHER, SELFPAY ==
[2024-01-24 10:29] LABS: MANUAL DIFF FLAG NO
[2024-01-24 10:41] LABS: Basophils Absolute Auto 0.1 X10*3/uL (0.0-0.2); Basophils Percent Auto 0.8 % (0-2); Eosinophils Absolute Auto 0.3 X10*3/uL (0.0-0.4); Eosinophils Percent Auto 3.3 % (0-4); Hematocrit 41.1 % (37.0-47.0); Hemoglobin 12.8 g/dl (12.0-16.0); Imm Gran Abs Auto 0.02 X10*3/uL (0.00-0.03); Imm Gran Pct Auto 0.3 % (0.0-0.4); Lymphocytes Absolute Auto 1.8 X10*3/uL (1.2-4.9); Lymphocytes Percent Auto 24.5 % (20-40); Mean Corpuscular HGB Conc 31.1 g/dl (31.0-35.0); Mean Corpuscular Hemoglobin 28.4 pg (27.0-33.0); Mean Corpuscular Volume 91.1 fL (80.0-98.0); Monocytes Absolute Auto 0.5 X10*3/uL (0.1-1.2); Neutrophils Absolute Auto 4.8 x10*3/uL (2.0-8.3); Neutrophils Percent Auto 64.1 % (45-73); Platelet Count 249 X10*3/uL (160-400); Red Blood Count 4.51 X10*6/uL (4.20-5.50); Red Cell Distribution Width 13.4 % (11.0-16.0); White Blood Count 7.5 X10*3/uL (4.8-10.8)
[2024-01-24 11:03] LABS: Alanine Aminotransferase 12 U/L (0-31); Alkaline Phosphatase 48 U/L (39-117); Anion Gap 13 (12-20); Aspartate Amino Transferase 13 U/L (5-31); Bilirubin Total 0.5 mg/dL (0.0-1.0); Blood Urea Nitrogen 18 mg/dL (9-16); Calcium 9.2 mg/dL (8.4-10.2); Carbon Dioxide 26 mmol/L (22-29); Chloride 105 mmol/L (96-108); Cholesterol 163 mg/dL (<200); Estimated Glomerular Filt Rate > 60; Ferritin 119 ng/mL (10-250); Glucose Fasting 94 mg/dL (60-99); HDL Cholesterol 33 mg/dL (>40); LDL Cholesterol Calculated 99 mg/dL (<100); Potassium 3.8 mmol/L (3.3-5.1); Sodium 140 mmol/L (135-145); Total Protein 7.4 g/dL (6.5-8.0); Triglycerides 158 mg/dL (<150)
[2024-01-29 15:28] LABS: Vitamin D 25-OH, D2 <4 ng/mL; Vitamin D 25-OH, D3 29 ng/mL; Vitamin D 25-OH, Total 29 ng/mL (30-100)
== END 2024-01-24 06:57 | disposition home or self-care (01) ==
LOC: HO.HMGCLDS 06:56
PROVIDERS: PCP Internal Medicine; Visit Provider Internal Medicine
DX: I10 Essential (primary) hypertension (principal); D50.9 Iron deficiency anemia, unspecified; E66.09 Other obesity due to excess calories; M17.10 Unilateral primary osteoarthritis, unspecified knee; N32.81 Overactive bladder; I73.9 Peripheral vascular disease, unspecified; M51.36 Other intervertebral disc degeneration, lumbar region; I89.0 Lymphedema, not elsewhere classified; M81.0 Age-related osteoporosis without current pathological fracture; K52.9 Noninfective gastroenteritis and colitis, unspecified
CPT/HCPCS: 36415; 80053; 80061; 82306; 82728; 85025

== ENCOUNTER 2024-04-25 08:39 | Outpatient (AMB) | payer MEDICARE, OTHER, SELFPAY ==
[2024-04-25 08:41] VITALS: BP 136/88; PULSE 68; O2SAT 98; BMI 34.7
--- NOTE | 2024-04-25 08:41 | A.OFFPC_ITS ---
Vital Signs 04/25/24 08:41 Height 5 ft 4 in Weight 202 lb 6 oz BMI 34.7 BP 136/88 Blood Pressure Location Lt brachial Position Sitting Pulse 68 Pulse Source Pulse Oximeter Pulse Oximetry (%) 98 Oxygen Delivery Method Room Air Intake Visit Reasons: 3 Month follow up Allergies amlodipine Adverse Reaction (Verified 04/25/24 08:45) Ankle swelling lisinopril Adverse Reaction (Verified 04/25/24 08:45) Cough Medication List - Last Reconciled 04/25/24 by Ford Krishnan MD acetaminophen (Tylenol Extra Strength) 500 mg PO Q6H PRN atenolol 25 mg PO DAILY cholecalciferol (vitamin D3) 25 mcg PO DAILY ferrous sulfate 324 mg PO BID 90 days loratadine (Claritin) 10 mg PO DAILY PRN meclizine 25 mg PO Q6H PRN 30 days mesalamine 2.6667 grams (40.0005 mL) [place] BEDTIME mesalamine ER 1.5 grams (4 x 0.375 gram) PO QAM solifenacin (Vesicare) 10 mg PO DAILY Tobacco use date assessed: 04/25/24 Fall risk assessment: 1 Fall in past year Last assessed Fall Risk: 04/25/24 Dental Screening Dental Screen Date: 04/25/24 Did you have a dental visit in the last 12 months?: No Did you have a dental problem in the last 6 months where you did not have access to dental care?: No Was dental information given to patient?: Patient has dentist HPI 3 Month follow up HPI Details Patient is a 68-year-old female came in today for her regular follow-up appointment Osteoporosis: Patient had bone density done early this year her score is-2.8 She was started on Fosamax, which caused ankle swelling so she had to stop At this point I would recommend calcium rich foods I will send her a list of foods to eat We will repeat bone density again in September and then decide further Blood pressure is well controlled , patient is on atenolol 25 mg, tolerating medications Lymphedema: Patient has seen vascular specialist who has recommended compression stockings which patient will be getting soon. Urine urgency: Patient is on VESIcare and is doing well Allergies are stable patient is on Claritin as needed Dizziness is also stable with meclizine as needed. She continued to see Gastroenterology [facility] and is taking mesalamine for the management of ulcerative colitis patient is stable. Multiple joint osteoarthritis managed by orthopedic [facility] She has chronic left ear tinnitus with hearing loss. She has already been evaluated by the ENT. Follow-up 3 months PFS Medical History Lumbar degenerative disc disease Lumbar spondylosis Colitis Anemia HTN (hypertension) Surgical History History of esophagogastroduodenoscopy (EGD) Hx of colonoscopy H/O: hysterectomy Family History Mother Bladder cancer Brother Cancer of kidney Lung cancer Brother Lung cancer Social History Household Members: Spouse Housing: House Do you presently have visiting nurse or other home services: No Alcohol intake: never Patient Tobacco Use Status: Former Tobacco user e-Cigarette/Vaping Use: Never Used service: No Current occupational status: retired Cognitive needs: No Hearing needs: No Vision needs: Yes Questionnaire Thrive Questionnaire Date Thrive assessed: 10/24/23 AUDIT C Alcohol Use Questionnaire (AUDIT-C) 1. How often do you have a drink containing alcohol?: Never 3. How often do you have six or more drinks on one occasion?: Never Total Score: 0 Score Reviewed/Action Taken: Yes LIBERTAD-7 AMB Questionnaire LIBERTAD-7 Date LIBERTAD - 7 assessed: 10/24/23 Source: Developed by Drs. Dashawn Restrepo, Jessica Worthington, Rodrigo Reynolds and colleagues, with an educational olena from [employer]. Review of Systems Const Denies chills and Denies fever(s) ENT Denies epistaxis and Denies nasal discharge Card Denies chest pain Resp Denies chest congestion, Denies cough and Denies hemoptysis GI Denies diarrhea and Denies nausea Skin/Breast Denies rash Neuro Reports no additional complaints Psych Reports no additional complaints Endo Reports no additional complaints Physical exam (Primary Care) Vital Signs: Last Vital Signs Pulse 68 04/25/24 08:41 BP 136/88 04/25/24 08:41 Pulse Ox 98 04/25/24 08:41 Oxygen Delivery Method Room Air 04/25/24 08:41 BMI result Body Mass Index 34.7 Tobacco/Smoking Status: Tobacco use Status Tobacco use date assessed 04/25/24 04/25/24 08:46 Patient Tobacco Use Status Former Tobacco user 04/25/24 08:42 e-Cigarette/Vaping Use Never Used 04/25/24 08:42 Thrive Assessment: Date of Thrive Assessment Date Thrive assessed 10/24/23 04/25/24 08:42 Const General: cooperative, comfortable and no acute distress Orientation/consciousness: patient oriented x3 HENMT Head: Yes normocephalic Eyes General: appearance normal, both eyes and all related structures Neck Neck: Yes supple Resp Effort & Inspection: normal respiratory effort, no cough and no stridor Cardio Rhythm: regular rhythm Heart sounds: S1 normal heart sound present and S2 normal heart sound present Skin General skin exam: turgor normal Neuro General: patient oriented x3, tone normal and moves all extremities Assessment and Plan Assessment & Plan (1) Hypertension, essential: Code(s): I10 - Essential (primary) hypertension (2) Overactive bladder: Code(s): N32.81 - Overactive bladder (3) Age related osteoporosis: Code(s): M81.0 - Age-related osteoporosis without current pathological fracture Qualifiers: Presence of current pathological fracture: without current pathological fracture Qualified Code(s): M81.0 - Age-related osteoporosis without current pathological fracture (4) Obesity due to excess calories: Code(s): E66.09 - Other obesity due to excess calories Qualifiers: Obesity classification: adult class 2 (BMI 35 - 39.9) Serious obesity comorbidity presence: with serious comorbidity Body mass index: BMI 35.0-35.9 Qualified Code(s): E66.01 - Morbid (severe) obesity due to excess calories; Z68.35 - Body mass index [BMI] 35.0-35.9, adult (5) Osteoarthritis, knee: Code(s): M17.10 - Unilateral primary osteoarthritis, unspecified knee Qualifiers: Osteoarthritis type: primary Laterality: bilateral Qualified Code(s): M17.0 - Bilateral primary osteoarthritis of knee (6) Peripheral vascular disease: Code(s): I73.9 - Peripheral vascular disease, unspecified (7) Lumbar degenerative disc disease: Code(s): M51.36 - Other intervertebral disc degeneration, lumbar region (8) Lymphedema: Code(s): I89.0 - Lymphedema, not elsewhere classified (9) Colitis: Code(s): K52.9 - Noninfective gastroenteritis and colitis, unspecified (10) Use of cane as ambulatory aid: Code(s): Z99.89 - Dependence on other enabling machines and devices Plan Patient is a 68-year-old female came in today for her regular follow-up appointment Osteoporosis: Patient had bone density done early this year her score is-2.8 She was started on Fosamax, which caused ankle swelling so she had to stop At this point I would recommend calcium rich foods I will send her a list of foods to eat We will repeat bone density again in September and then decide further Blood pressure is well controlled , patient is on atenolol 25 mg, tolerating medications Lymphedema: Patient has seen vascular specialist who has recommended compression stockings which patient will be getting soon. Urine urgency: Patient is on VESIcare and is doing well Allergies are stable patient is on Claritin as needed Dizziness is also stable with meclizine as needed. She continued to see Gastroenterology [facility] and is taking mesalamine for the management of ulcerative colitis patient is stable. Multiple joint osteoarthritis managed by orthopedic [facility] She has chronic left ear tinnitus with hearing loss. She has already been evaluated by the ENT. Follow-up 3 months Orders: Orders 2 XR DEXA axial skeleton 5 Months M81.0 - Age-related osteoporosis without current pathological fracture Coding Level of Care Code Est Pt Level 4 (75866) Complex EM visit Add On G2211 Diagnoses Hypertension, essential I10 Overactive bladder N32.81 Age-related osteoporosis without current pathological fracture M81.0 Presence of current pathological fracture: without current pathological fracture Class 2 severe obesity due to excess calories with serious comorbidity and body mass index (BMI) of 35.0 to 35.9 in adult E66.01; Z68.35 Obesity classification: adult class 2 (BMI 35 - 39.9) Serious obesity comorbidity presence: with serious comorbidity Body mass index: BMI 35.0-35.9 Primary osteoarthritis of both knees M17.0 Osteoarthritis type: primary Laterality: bilateral Peripheral vascular disease I73.9 Lumbar degenerative disc disease M51.36 Lymphedema I89.0 Colitis K52.9 Use of cane as ambulatory aid Z99.89
== END 2024-04-25 09:03 | disposition home or self-care (01) ==
PROVIDERS: PCP Internal Medicine; Visit Provider Internal Medicine
DX: I10 Essential (primary) hypertension (principal); E66.01 Morbid (severe) obesity due to excess calories; Z68.35 Body mass index [BMI] 35.0-35.9, adult; I73.9 Peripheral vascular disease, unspecified; N32.81 Overactive bladder; M81.0 Age-related osteoporosis without current pathological fracture; M17.0 Bilateral primary osteoarthritis of knee; M51.36 Other intervertebral disc degeneration, lumbar region; I89.0 Lymphedema, not elsewhere classified; K52.9 Noninfective gastroenteritis and colitis, unspecified; Z99.89 Dependence on other enabling machines and devices
CPT/HCPCS: 99214; G2211

== ENCOUNTER 2024-09-29 10:39 | Outpatient (REF) | payer MEDICARE, OTHER, SELFPAY ==
--- OUTSIDE RECORDS SUMMARY | 2024-09-29 15:24 | XMS_ITS | Clinical Summary ---
Author Organization [facility] Address [address] [place] [address] Care Team Providers Care Biological Science Technician Fish Name Role Phone Unavailable Primary Care Provider Unavailabl e Source Comments PLEASE NOTE, if this patient is a minor, it may be UNLAWFUL to discuss sensitive information that is contained in these records (such as FAMILY PLANNING, MENTAL HEALTH or SUBSTANCE ABUSE) with the minor patient's parent or other person without the patient's specific authorization.[facility] Immunizations Name Administration Dates Next Due Moderna COVID-19 Vaccine, re d cap blue label, 12+ Primary Series 12/15/2020,11/17/2020 Social History Tobacco Use Types Packs/Day Years Used Date Smoking Tobacco: Never Assessed Social Connections Answer Date Recorded Social Connections and Isolation 0 11/17/2020 Financial Resource Strain Answer Date R ecorded Financial Resource Strain 0 2020 Stress Answer Date Recorded Stress 0 11/17/2020 Physical Activity Answer Date Recorded Physical Activity 0 11/17/2020 Food Insecurity Answer Date Recorded Food 0 11/17/2020 Transportation Needs Answer Date Record ed Transportation 0 11/17/2020 Housing Stability Answer Date Recorded Housing 0 11/17/2020 Safety and Environment Answer Date John rded Safety 0 11/17/2020 Utilities Answer Date Recorded Utilities 0 11/17/2020 Employment Answer Date Recorded Employment 0 11/17/2020 Comments Unknown Sex and Gender Information Value Date Recorded Sex Assigned at Not on file Legal Sex Female 10:15 AM PDT Gender Identity Not on file Sexual Orientation Not on file Plan of Treatment Health Maintenance Due Date Last Done Comments Diabetes Screening 1955 Hepatitis C Screening 1955 Lipid Screening 1955 Tobacco Screening 1955 Annual Preventive Care Visit 1973 Hypertension Screening (#1) 1973 Imm-DTaP/Tdap/Td (1 - Tdap) 1974 Breast Cancer Screening (Mammogram) 1995 CT Colonography 2000 Colonoscopy 2000 Colorectal Cancer Screening 2000 FIT/gFOBT 2000 Fecal DNA 2000 Flexible Sigmoidoscopy 2000 Imm-Zoster, Recombinant (1 of 2) 2005 Bone Density Screening 2020 Falls Prevention 2020 Imm-Pneumococcal 65+ (1 of 1 - PCV) 2020 Alcohol and Drug Screen 09/03/2023 Depression Annual Screen 09/03/2023 [id number] ( season) 05/04/202412/15/2 021, 11/17/2020 Imm-Influenza (#1) 2024 06/19/2018, 0 05/03/2017, 10/25/2015
== END 2024-09-29 10:40 | disposition home or self-care (01) ==
LOC: HO.MAMMO 10:39
PROVIDERS: PCP Internal Medicine; Visit Provider Internal Medicine
DX: Z12.31 Encounter for screening mammogram for malignant neoplasm of breast (principal)
CPT/HCPCS: 77063; 77067

== ENCOUNTER → 2024-09-29 10:45 | Outpatient (BNV) | payer MEDICARE, OTHER, SELFPAY | PROVIDERS: PCP Internal Medicine; Visit Provider Internal Medicine | DX: Z12.31 Encounter for screening mammogram for malignant neoplasm of breast (principal) | CPT/HCPCS: 77063; 77067 ==

== ENCOUNTER 2024-10-21 09:30 | Outpatient (AMB) | payer MEDICARE, OTHER, SELFPAY ==
[2024-10-21 09:31] VITALS: BP 126/84; PULSE 73; TEMP 36.5; O2SAT 97; BMI 35.6
--- NOTE | 2024-10-21 09:31 | A.OFFPC_ITS ---
Vital Signs 10/21/24 09:31 Height 5 ft 4 in Weight 207 lb 4 oz BMI 35.6 BP 126/84 Blood Pressure Location Rt brachial Position Sitting Pulse 73 Pulse Source Pulse Oximeter Temp 97.7 F Temp Source Oral Pulse Oximetry (%) 97 Oxygen Delivery Method Room Air Intake Visit Reasons: 6 Month follow up Allergies amlodipine Adverse Reaction (Verified 10/21/24 09:31) Ankle swelling lisinopril Adverse Reaction (Verified 10/21/24 09:31) Cough Medication List - Last Reconciled 10/21/24 by Ford Krishnan MD acetaminophen (Tylenol Extra Strength) 500 mg PO Q6H PRN atenolol 25 mg PO DAILY cholecalciferol (vitamin D3) 25 mcg PO DAILY ferrous sulfate 324 mg PO BID 90 days loratadine (Claritin) 10 mg PO DAILY PRN meclizine 25 mg PO Q6H PRN 30 days mesalamine 1 g [place] BEDTIME 4 weeks mesalamine ER 1.5 grams (4 x 0.375 gram) PO QAM solifenacin (Vesicare) 10 mg PO DAILY Tobacco use date assessed: 10/21/24 Fall risk assessment: No Falls in past year Last assessed Fall Risk: 10/21/24 Dental Screening Dental Screen Date: 10/21/24 Did you have a dental visit in the last 12 months?: Yes Did you have a dental problem in the last 6 months where you did not have access to dental care?: No Was dental information given to patient?: Patient has dentist HPI 6 Month follow up HPI Details History - The patient is a 69-year-old female pr esenting for a regular follow-up visit. - She has a history of Essential Hyperte nsion, managed with atenolol 25 mg, and her blood pressure is stable. - Iron Deficiency Anemia is noted, for w michael she is taking iron supplements. - She uses loratadine 10 mg as needed fo r her Seasonal Allergic Rhinitis. - Dizziness has been a concern, and she has been taking Meclizine daily but was advised to evaluate the need for continued use. - The patient continues using Mesalamine for Ulcerative Colitis management. - Vesicare is used for her Overactive Bl adder. - She reports taking her morning medicat ions with water and has been fasting since the previous night, which allows for fasting laboratory tests. Problem List - Essential Hypertension - Iron Deficiency Anemia - Seasonal Allergic Rhinitis - Dizziness - Ulcerative Colitis - Overactive Bladder Patient Instructions - Discontinue Meclizine and monitor for dizziness. Use only if symptoms reoccur. - Proceed with fasting labs as ordered. - Continue current medications as prescr ibed. - Follow up as scheduled for the next ap pointment in January. Review of Systems - General: No fever no chills - Neurological: No headaches no dizziness - Ear nose throat: No sore throat no hearing difficulty no ear pain - Cardiovascular: No syncope, no chest pain, no palpitations - Gastrointestinal: No nausea vomiting or diarrhea - Endocrine: No polyuria polydipsia no heat intolerance - Genitourinary: No dysuria , no blood in urine Physical Exam - General: No acute distress - HEENT: No acute findings - Neck: Supple - Respiratory system: Able to talk in f ull sentences, no audible wheeze - cardiovascular: S1-S2 regular in rat e and rhythm - Gastrointestinal: No pain - Extremities: No new findings - RN DOCUMENT IMPROVEMENT SPECIALIST: Alert awake oriented x3 motor se nsory intact - Skin: Normal turgor PFSH Medical History Lumbar degenerative disc disease Lumbar spondylosis Colitis Anemia HTN (hypertension) Surgical History History of esophagogastroduodenoscopy (EGD) Hx of colonoscopy H/O: hysterectomy Family History Mother Bladder cancer Brother Cancer of kidney Lung cancer Brother Lung cancer Social History Household Members: Spouse Housing: House Do you presently have visiting nurse or other home services: No Alcohol intake: never Patient Tobacco Use Status: Former Tobacco user e-Cigarette/Vaping Use: Never Used service: No Current occupational status: retired Cognitive needs: No Hearing needs: No Vision needs: Yes Questionnaire PHQ-9 Over the last 2 weeks, how often have you been bothered by any of the following problems? 32600 - PHQ-9 Billing: Patient declined-do not bill Source: Developed by Drs. Dashawn Restrepo, Jessica Worthington, Rodrigo Reynolds and colleagues, with an educational olena from [employer]. Thrive Questionnaire Date Thrive assessed: 10/21/24 I am a: Patient What is your living situation today?: I have a steady place to live Within the past 12 months, did the food you bought not last and you didn't have the money to get more?: Never true Within the past 12 months, did you worry whether your food would run out before you got money to buy more?: Never true Do you have trouble paying for medicines?: No Do you have trouble getting transportation to medical appointments?: No Do you have trouble paying your heating and electricity bill?: No Do you have trouble taking care of your child, family member or friend?: No Do you have trouble with day-to-day activities such as bathing, preparing meals, shopping, managing finances, etc.?: No Are you currently unemployed and looking for a job?: No Are you interested in more education?: No Please select the resources that you would like help with: None Currently or been in a relationship where the following occur: No concerns reported THRIVE Score: 0 AUDIT C Alcohol Use Questionnaire (AUDIT-C) 1. How often do you have a drink containing alcohol?: Never 3. How often do you have six or more drinks on one occasion?: Never Total Score: 0 Score Reviewed/Action Taken: Yes LIBERTAD-7 AMB Questionnaire LIBERTAD-7 Date LIBERTAD - 7 assessed: 10/21/24 Feeling nervous, anxious, or on edge: 0 = Not at all Not being able to stop or control worryin = Not at all Worrying too much about different things: 0 = Not at all Trouble relaxin = Not at all Being so restless that it is hard to sit still: 0 = Not at all Becoming easily annoyed or irritable: 0 = Not at all Feeling afraid as if something awful might happen: 0 = Not at all Total LIBERTAD-7 score (0-4 normal; 5-9 mild; 10-14 moderate; 15-21 severe): 0 Source: Developed by Drs. Dashawn Restrepo, Jessica Worthington, Rodrigo Reynolds and colleagues, with an educational olena from [employer]. LIBERTAD-7 Assessment Billing LIBERTAD-7 Assessment Tool: LIBERTAD-7 Assessment 88381 Physical exam (Primary Care) Vital Signs: Last Vital Signs Temp 97.7 F 10/21/24 09:31 Pulse 73 10/21/24 09:31 BP 126/84 10/21/24 09:31 Pulse Ox 97 10/21/24 09:31 Oxygen Delivery Method Room Air 10/21/24 09:31 BMI result Body Mass Index 35.6 Tobacco/Smoking Status: Tobacco use Status Tobacco use date assessed 10/21/24 10/21/24 09:37 Patient Tobacco Use Status Former Tobacco user 10/21/24 09:37 e-Cigarette/Vaping Use Never Used 10/21/24 09:37 Thrive Assessment: Date of Thrive Assessment Date Thrive assessed 10/21/24 10/21/24 09:44 Currently or been in a relationship where the following occur: No concerns reported Coding Level of Care Code Est Pt Level 4 (91962) Complex EM visit Add On G2211 Diagnoses Hypertension, essential I10 Iron deficiency anemia due to chronic blood loss D50.0 Iron deficiency anemia type: chronic blood loss Class 2 severe obesity due to excess calories with serious comorbidity and body mass index (BMI) of 35.0 to 35.9 in adult E66.01; Z68.35 Body mass index: BMI 35.0-35.9 Obesity classification: adult class 2 (BMI 35 - 39.9) Serious obesity comorbidity presence: with serious comorbidity Overactive bladder N32.81 Peripheral vascular disease I73.9 Age-related osteoporosis without current pathological fracture M81.0 Presence of current pathological fracture: without current pathological fracture Lymphedema I89.0 Colitis K52.9 Additional Codes LIBERTAD-7 Assessment Billing - LIBERTAD-7 Assessment Tool: LIBERTAD-7 Assessment [id number] ([id number]) Assessment & Plan Assessment & Plan (1) Hypertension, essential: Code(s): I10 - Essential (primary) hypertension Category: Medical (2) Iron deficiency anemia: Code(s): D50.9 - Iron deficiency anemia, unspecified Category: Medical Qualifiers: Iron deficiency anemia type: chronic blood loss Qualified Code(s): D50.0 - Iron deficiency anemia secondary to blood loss (chronic) (3) Obesity due to excess calories: Code(s): E66.09 - Other obesity due to excess calories Category: Medical Qualifiers: Body mass index: BMI 35.0-35.9 Obesity classification: adult class 2 (BMI 35 - 39.9) Serious obesity comorbidity presence: with serious comorbidity Qualified Code(s): E66.01 - Morbid (severe) obesity due to excess calories; Z68.35 - Body mass index [BMI] 35.0-35.9, adult (4) Overactive bladder: Code(s): N32.81 - Overactive bladder Category: Medical (5) Peripheral vascular disease: Code(s): I73.9 - Peripheral vascular disease, unspecified Category: Medical (6) Age related osteoporosis: Code(s): M81.0 - Age-related osteoporosis without current pathological fracture Category: Medical Qualifiers: Presence of current pathological fracture: without current pathological fracture Qualified Code(s): M81.0 - Age-related osteoporosis without current pa thological fracture (7) Lymphedema: Code(s): I89.0 - Lymphedema, not elsewhere classified Category: Medical (8) Colitis: Code(s): K52.9 - Noninfective gastroenteritis and colitis, unspecified Category: Medical Plan History - The patient is a 69-year-old female presenting for a regular follow-up visit. - She has a history of Essential Hypertension, managed with atenolol 25 mg, and her blood pressure is stable. - Iron Deficiency Anemia is noted, for which she is taking iron supplements. - She uses loratadine 10 mg as needed for her Seasonal Allergic Rhinitis. - Dizziness has been a concern, and she has been taking Meclizine daily but was advised to evaluate the need for continued use. - The patient continues using Mesalamine for Ulcerative Colitis management. - Vesicare is used for her Overactive Bladder. - She reports taking her morning medications with water and has been fasting since the previous night, which allows for fasting laboratory tests. Problem List - Essential Hypertension - Iron Deficiency Anemia - Seasonal Allergic Rhinitis - Dizziness - Ulcerative Colitis - Overactive Bladder Patient Instructions - Discontinue Meclizine and monitor for dizziness. Use only if symptoms reoccur. - Proceed with fasting labs as ordered. - Continue current medications as prescribed. - Follow up as scheduled for the next appointment in January. Orders: Orders Complete Blood Count Auto Diff Today D50.0 - Iron deficiency anemia secondary to blood loss (chronic), E66.01 - Morbid (severe) obesity due to excess calories, I10 - Essential (primary) hypertension, I73.9 - Peripheral vascular disease, unspecified, I89.0 - Lymphedema, not elsewhere classified, K52.9 - Noninfective gastroenteritis and colitis, unspecified, M81.0 - Age-related osteoporosis without current pathological fracture, N32.81 - Overactive bladder, Z68.35 - Body mass index [BMI] 35.0-35.9, adult Comprehensive Marlin. Panel Fast Today D50.0 - Iron deficiency anemia secondary to blood loss (chronic), E66.01 - Morbid (severe) obesity due to excess ca lories, I10 - Essential (primary) hypertension, I73.9 - Peripheral vascular disease, unspecified, I89.0 - Lymphedema, not elsewhere classified, K52.9 - Noninfective gastroenteritis and colitis, unspecified, M81.0 - Age-related osteoporosis without current pathological fracture, N32.81 - Overactive bladder, Z68.35 - Body mass index [BMI] 35.0-35.9, adult Vitamin B12 Today D50.0 - Iron deficiency anemia secondary to blood loss (chronic), E66.01 - Morbid (severe) obesity due to excess calories, I10 - Essential (primary) hypertension, I73.9 - Peripheral vascular disease, unspecified, I89.0 - Lymphedema, not elsewhere classified, K52.9 - Noninfective gastroenteritis and colitis, unspecified, M81.0 - Age-related osteoporosis without current pathological fracture, N32.81 - Overactive bladder, Z68.35 - Body mass index [BMI] 35.0-35.9, adult TSH reflex Free T4 Today D50.0 - Iron deficiency anemia secondary to blood loss (chronic), E66.01 - Morbid (severe) obesity due to excess calories, I10 - Essential (primary) hypertension, I73.9 - Peripheral vascular disease, unspecified, I89.0 - Lymphedema, not elsewhere classified, K52.9 - Noninfective gastroenteritis and colitis, unspecified, M81.0 - Age-related osteoporosis without current pathological fracture, N32.81 - Overactive bladder, Z68.35 - Body mass index [BMI] 35.0-35.9, adult Ferritin Today D50.0 - Iron deficiency anemia secondary to blood loss (chronic), E66.01 - Morbid (severe) obesity due to excess calories, I10 - Essential (primary) hypertension, I73.9 - Peripheral vascular disease, unspecified, I89.0 - Lymphedema, not elsewhere classified, K52.9 - Noninfective gastroenteritis and colitis, unspecified, M81.0 - Age-related osteoporosis without current pathological fracture, N32.81 - Overactive bladder, Z68.35 - Body mass index [BMI] 35.0-35.9, adult Lipid Panel Today D50.0 - Iron deficiency anemia secondary to blood loss (chronic), E66.01 - Morbid (severe) obesity due to excess calories, I10 - Essential (primary) hypertension, I73.9 - Peripheral vascular disease, unspecified, I89.0 - Lymphedema, not elsewhere classified, K52.9 - Noninfective gastroenteritis and colitis, unspecified, M81.0 - Age-related osteoporosis without current pathological fracture, N32.81 - Overactive bladder, Z68.35 - Body mass index [BMI] 35.0-35.9, adult Vitamin D 25-OH (D2 and D3) Today D50.0 - Iron deficiency anemia secondary to blood loss (chronic), E66.01 - Morbid (severe) obesity due to excess calories, I10 - Essential (primary) hypertension, I73.9 - Peripheral vascular disease, unspecified, I89.0 - Lymphedema, not elsewhere classified, K52.9 - Noninfective gastroenteritis and colitis, unspecified, M81.0 - Age-related osteoporosis without current pathological fracture, N32.81 - Overactive bladder, Z68.35 - Body mass index [BMI] 35.0-35.9, adult
--- OUTSIDE RECORDS SUMMARY | 2024-10-21 10:17 | XMS_ITS | Clinical Summary ---
Author Organization [facility] Address [address] [place] [address] Care Team Providers Care Physical Sciences Instructor Name Role Phone Unavailable Primary Care Provider [...] Drug Screen 09/03/2023 Depression Annual Screen 09/03/2023 [id number] ( season) 05/04/202412/15/2 021, 11/17/2020 Imm-Influenza (#1) 2024 06/19/2018, 0 05/03/2017, 10/25/2015
== END 2024-10-21 10:10 | disposition home or self-care (01) ==
PROVIDERS: PCP Internal Medicine; Visit Provider Internal Medicine
DX: I10 Essential (primary) hypertension (principal); D50.0 Iron deficiency anemia secondary to blood loss (chronic); E66.01 Morbid (severe) obesity due to excess calories; Z68.35 Body mass index [BMI] 35.0-35.9, adult; N32.81 Overactive bladder; I73.9 Peripheral vascular disease, unspecified; M81.0 Age-related osteoporosis without current pathological fracture; I89.0 Lymphedema, not elsewhere classified; K52.9 Noninfective gastroenteritis and colitis, unspecified

== ENCOUNTER 2024-10-21 09:30 | Outpatient (REF) | payer MEDICARE, OTHER, SELFPAY ==
[2024-10-21 13:04] LABS: MANUAL DIFF FLAG NO
[2024-10-21 13:13] LABS: Basophils Absolute Auto 0.1 X10*3/uL (0.0-0.2); Basophils Percent Auto 0.6 % (0-2); Eosinophils Absolute Auto 0.3 X10*3/uL (0.0-0.4); Eosinophils Percent Auto 2.7 % (0-4); Hematocrit 43.1 % (37.0-47.0); Hemoglobin 13.9 g/dl (12.0-16.0); Imm Gran Abs Auto 0.03 X10*3/uL (0.00-0.03); Imm Gran Pct Auto 0.3 % (0.0-0.4); Lymphocytes Absolute Auto 1.7 X10*3/uL (1.2-4.9); Lymphocytes Percent Auto 17.7 % (20-40); Mean Corpuscular HGB Conc 32.3 g/dl (31.0-35.0); Mean Corpuscular Hemoglobin 28.9 pg (27.0-33.0); Mean Corpuscular Volume 89.6 fL (80.0-98.0); Mean Platelet Volume 9.4 fL (9.4-12.3); Monocytes Absolute Auto 0.7 X10*3/uL (0.1-1.2); Monocytes Percent Auto 7.7 % (2-11); Neutrophils Absolute Auto 6.9 x10*3/uL (2.0-8.3); Platelet Count 255 X10*3/uL (160-400); Red Blood Count 4.81 X10*6/uL (4.20-5.50); Red Cell Distribution Width 13.4 % (11.0-16.0); White Blood Count 9.7 X10*3/uL (4.8-10.8)
[2024-10-21 13:30] LABS: Alanine Aminotransferase 16 U/L (0-31); Albumin Level 4.1 g/dL (3.5-5.0); Alkaline Phosphatase 59 U/L (39-117); Anion Gap 13 (12-20); Aspartate Amino Transferase 24 U/L (5-31); Bilirubin Total 0.7 mg/dL (0.0-1.0); Blood Urea Nitrogen 14 mg/dL (9-16); Calcium 9.3 mg/dL (8.4-10.2); Carbon Dioxide 26 mmol/L (22-29); Chloride 106 mmol/L (96-108); Cholesterol 169 mg/dL (<200); Estimated Glomerular Filt Rate > 60; Glucose Fasting 91 mg/dL (60-99); HDL Cholesterol 38 mg/dL (>40); LDL Cholesterol Calculated 106 mg/dL (<100); Sodium 141 mmol/L (135-145); Total Protein 7.9 g/dL (6.5-8.0); Triglycerides 127 mg/dL (<150)
[2024-10-21 13:48] LABS: Ferritin 232 ng/mL (10-250); TSH reflex Free T4 1.26 uIU/mL (0.32-4.0)
[2024-10-21 14:01] LABS: Vitamin B12 437 pg/mL (200-900)
[2024-10-25 16:13] LABS: Vitamin D 25-OH, D2 <4 ng/mL; Vitamin D 25-OH, D3 24 ng/mL; Vitamin D 25-OH, Total 24 ng/mL (30-100)
== END 2024-10-21 09:31 | disposition home or self-care (01) ==
LOC: HO.HMGCLDS 09:30
PROVIDERS: PCP Internal Medicine; Visit Provider Internal Medicine
DX: I10 Essential (primary) hypertension (principal); D50.0 Iron deficiency anemia secondary to blood loss (chronic); E66.01 Morbid (severe) obesity due to excess calories; Z68.35 Body mass index [BMI] 35.0-35.9, adult; N32.81 Overactive bladder; I73.9 Peripheral vascular disease, unspecified; M81.0 Age-related osteoporosis without current pathological fracture; I89.0 Lymphedema, not elsewhere classified; K52.9 Noninfective gastroenteritis and colitis, unspecified; Z79.899 Other long term (current) drug therapy
CPT/HCPCS: 36415; 80053; 80061; 82306; 82607; 82728; 84443; 85025; 96127; 99212

== ENCOUNTER 2025-02-06 12:35 | Outpatient (AMB) | payer MEDICARE, OTHER, SELFPAY ==
--- OUTSIDE RECORDS SUMMARY | 2025-02-06 12:38 | XMS_ITS | Clinical Summary ---
Author Organization [facility] Address [address] [place] [address] Care Team Providers Care Cut To Length Operator Name Role Phone Unavailable Primary Care Provider Unavailabl e Source Comments PLEASE NOTE, if this patient is a minor, it may be UNLAWFUL to discuss sensitive information that is contained in these records (such as FAMILY PLANNING, MENTAL HEALTH or SUBSTANCE ABUSE) with the minor patient's parent or other person without the patient's specific authorization.[facility] Immunizations Immunization Administration Dates Next Due Moderna COVID-19 Vaccine, [...] 1955 Lipid Screening 1955 Tobacco Screening 1955 Hypertension Screening (#1) 1973 Imm-DTaP/Tdap/Td (1 - Tdap) 1974 Breast Cancer Screening (Mammogram) 1995 CT Colonography 2000 Colonoscopy 2000 Colorectal Cancer Screening 2000 FIT/gFOBT 2000 Fecal DNA 2000 Flexible Sigmoidoscopy 2000 Imm-Pneumococcal 65+ (1 of 1 - PCV) 2005 Imm-Zoster, Recombinant (1 of 2) 2005 Bone Density Screening 2020 Falls Prevention 2020 [id number] ( season) 05/04/202412/15/2 021, 11/17/2020 Alcohol and Drug Screen 09/03/2024 Depression Annual Screen 09/03/2024 Imm-Influenza (Season Ended) 2025, 05/03/2017, 10/25/2015
[2025-02-06 12:41] VITALS: BP 130/92; PULSE 73; TEMP 36.8; O2SAT 95; BMI 35.7
--- NOTE | 2025-02-06 12:42 | AM.OFFVISMDC ---
Intake Vital Signs 02/06/25 12:41 Height 5 ft 4 in Weight 208 lb BMI 35.7 BP 130/92 H Blood Pressure Location Rt brachial Position Sitting Pulse 73 Pulse Source Pulse Oximeter Temp 98.2 F Temp Source Oral Pulse Oximetry (%) 95 Oxygen Delivery Method Room Air Intake Visit Reasons: SWV [id number] Allergies amlodipine Adverse Reaction (Verified 10/21/24 09:31) Ankle swelling lisinopril Adverse Reaction (Verified 10/21/24 09:31) Cough Medication List - Last Reconciled 02/06/25 by Ford Krishnan MD acetaminophen (Tylenol Extra Strength) 500 mg PO Q6H PRN atenolol 25 mg PO DAILY cholecalciferol (vitamin D3) 25 mcg PO DAILY ferrous sulfate 324 mg PO BID 90 days loratadine (Claritin) 10 mg PO DAILY PRN meclizine 25 mg PO Q6H PRN 30 days mesalamine 1,000 mg CO BEDTIME mesalamine ER 1.5 grams (4 x 0.375 gram) PO QAM solifenacin (Vesicare) 10 mg PO DAILY HPI SWV G0439 HPI Details History - The patient is a 69-year-old female presenting for a wellness visit, with a focus on managing osteoporosis and essential hypertension. - Osteoporosis: The patient has a history of osteoporosis with a recent bone density scan in September 2023 showing a T-score of -2.8. She reported a previous attempt to use a medication (alendronate) that did not agree with her due to an unspecified side effect. Nevertheless, she is willing to reattempt oral therapy. - Essential Hypertension: Blood pressure was noted to be slightly elevated at 130/92 mmHg during today's visit, although it was normal during a previous measurement. - Past medical management includes established care with a radiographer mammographer for the managment of ulcerative colitis , taking med, stable and adherence to mammogram updating as of September this year. Medical History: - Essential Hypertension - Osteoporosis - Bilateral Lymphedema - Peripheral Vascular Disease - History of Uterine Fibroids, status post-hysterectomy - Vitamin D Deficiency (on supplementation) - Ulercative collitis Surgical History: - Hysterectomy for uterine fibroids Medications: - Atenolol 25 mg for hypertension - Iron supplement - Loratadine - Meclizine - Mesalamine - Solifenacin (Vesicare) for bladder management - Vitamin D3 supplement for vitamin D deficiency Social History: - The patient is actively involved in caregiving, as evidenced by her recent experience of watching and caring for her son's dog, which requires physical activity through play. Diagnostic Results: - Labs: Complete blood count (CBC) normal, electrolytes normal, kidney functions normal, liver enzymes normal, and LDL cholesterol level 106 mg/dL as of October. - Bone Density Test: T-score of -2.8 indicating osteoporosis, conducted in September 2023. Problem List - Essential Hypertension - Bilateral Lymphedema - Osteoporosis - Peripheral Vascular Disease - History of Uterine Fibroids (status post-hysterectomy) Patient Instructions - Begin the new medication (bandronate) on the 7th of every month. - Take the medication on an empty stomach and stay upright for 30 minutes after taking it. - Keep track of any side effects such as nausea, heartburn, or itching, and contact the practice if these occur. - Maintain current medication regimen with no changes as of now. - Record the administration date on a calendar to ensure adherence. Review of Systems - General: No fever no chills - Neurological: No headaches no dizziness - Ear nose throat: No sore throat no hearing difficulty no ear pain - Cardiovascular: No syncope, no chest pain, no palpitations - Gastrointestinal: No nausea vomiting or diarrhea - Endocrine: No polyuria polydipsia no heat intolerance - Genitourinary: No dysuria , no blood in urine Physical Exam General: No acute distress HEENT: No acute findings Neck: Supple Respiratory system: Able to talk in full sentences, no audible wheeze Cardiovascular: S1-S2 regular in rate and rhythm, blood pressure slightly elevated at 130/92 Gastrointestinal: No pain Extremities: No new findings [employer]: Alert awake oriented x3 motor sensory intact Skin: Normal turgor HPI Comments History of Present Illness Details AWV Medical/social history reviewed Past medical history reviewed [place] of care / care team list updated Surgical/ hospitalization history reviewed Current medications including OTC and supplements reviewed Family history reviewed Tobacco controlled form updated Alcohol use form updated Illicit drug use in social history reviewed Current diagnosis of depression ?screening updated Appropriate PHQ 2/PHQ-9 completed . Vital signs reviewed Alcohol tobacco drug use reviewed and discussed . MMSE completed . ? Fall risk: ?Assessed Fall history: ?None Have you had any falls with injury in the past year?? No Have you had 2 or more falls in the past year?? No Fall risk assessment completed Home safety discussed with the patient Functional ability assessed and discussed and documented Activities of daily living reviewed and appropriate actions taken . HRA filled out by the patient and reviewed by provider and scanned . Appropriate written screening schedule established . Any health advise needed provided . Advance care planning discussed with the patient , necessary paperwork filled Examination IPPE/AWE: Balance intact Romberg intact Tandem walk failed walk-in turn intact rise from sit to stand intact . ?Hearing ?whisper test failed . Medication list reviewed, patient is stable on medications All other providers patient is seeing discussed and noted . [facility] Medical History Lumbar degenerative disc disease Lumbar spondylosis Colitis Anemia HTN (hypertension) Surgical History History of esophagogastroduodenoscopy (EGD) Hx of colonoscopy H/O: hysterectomy Family History Mother Bladder cancer Brother Cancer of kidney Lung cancer Brother Lung cancer Social History Household Members: Spouse Housing: House Do you presently have visiting nurse or other home services: No Alcohol intake: never Patient Tobacco Use Status: Former Tobacco user e-Cigarette/Vaping Use: Never Used service: No Current occupational status: retired Cognitive needs: No Hearing needs: No Vision needs: Yes Questionnaire Medicare Wellness Checkup What [age] What gender do you identify with?: female During the past 4 weeks, how much have you been bothered by emotional problems such as feeling anxious, depressed, irritable, sad or downhearted, and blue?: not at all During the past 4 weeks, has your physical & emotional health limited your social activities with family, friends, neighbors, or groups?: not at all During the past 4 weeks, how much bodily pain have you generally had?: mild pain During the past 4 weeks, was someone available to help you if you needed & wanted help?: yes, as much as I wanted During the past 4 weeks, what was the hardest physical activity you could do for at least 2 minutes?: moderate Can you get to places out of walking distance without help? (For eg., can you travel alone on buses, taxis or drive your car?): Yes Can you go shopping for groceries or clothes without someone's help?: Yes Can you prepare your own meals?: Yes Can you do your housework without help?: Yes Because of any health problems, do you need the help of another person with your personal care needs such as eating, bathing, dressing or getting around the house?: No Can you handle your own money without help?: Yes During the past 4 weeks, how would you rate your health in general?: good During the past 4 weeks how have things been going for you?: very well; could hardly better Are you having difficulties driving your car?: no Do you always fasten your seat belt when you are in a car?: yes, sometimes During past 4 weeks, have you been bothered by the following: never: Sexual problems?, Trouble eating well?, Teeth or denture problems? and Problems using the telephone? and seldom: Falling or dizzy when standing up and Tiredness or fatigue? Have you fallen 2 or more times in the past year?: No Are you afraid of falling?: No Are you a smoker?: no During the past 4 weeks, how many drinks of wine, beer, or other alcoholic beverages did you have?: no alcohol at all Do you exercise for about 20 minutes 3 or more times a week?: no, I usually do not exercise this much Have you been given information to help with the following?: no: Hazards in your house that might hurt you? and no: Keeping track of your medications? How often do you have trouble taking medicines the way you have been told to take them?: I always take medicine as prescribed How confident are you that you can control & manage most of your health problems?: very confident What is your race?: White Mini Mental State Exam (MMSE) Orientation What is the (year) (season) (date) (day) (month)?: year, season, date, day and month Where are we (state) (county) (town or city) (hospital) (floor)?: state, county, town or city, hospital/clinic and floor Score Score: 10 Activity of Daily Living Bathing - sponge bath, tub bath or shower: receives no assistance (gets in/out by self, if usual bathing means Dressing - getting clothes from closets & drawers, including inner/outer garments & fasteners.: gets clothes & gets completely dressed without help Toileting - going to the 'toilet room' for urine/bowel elimination & cleaning self/arranging clothes: goes to toilet room, cleans self, arranges clothes without help Transfer: moves in & out of bed and chair without help (may use support object) Continence: has occasional 'accidents' Feeding: feeds self without help Total Score: 0 Information obtained from: patient Using telephone: independent Traveling: needs assistance Shopping: needs assistance Preparing meals: independent Housework: needs assistance Taking medicine: independent Managing money: independent PHQ-9 Over the last 2 weeks, how often have you been bothered by any of the following problems? 1. Little interest or pleasure in doing things: not at all 2. Feeling down, depressed, or hopeless: not at all 3. Trouble falling or staying asleep, or sleeping too much: not at all 4. Feeling tired or having little energy: not at all 5. Poor appetite or overeating: not at all 6. Feeling bad about yourself - or that you are a failure or have let yourself or your family down: not at all 7. Trouble concentrating on things, such as reading the newspaper or watching television: not at all 8. Moving or speaking so slowly that other people could have noticed. Or the opposite - being so fidgety or restless that you have been moving around a lot more than usual: not at all 9. Thoughts that you would be better off or of hurting yourself in some way: not at all Total score: 0 Depression Screening Interpretation: Negative Depression Screening Done: Yes Source: Developed by Drs. Dashawn Restrepo, Jessica Worthington, Rodrigo Reynolds and colleagues, with an educational olena from [employer]. Physical Exam Vital Signs: Last Vital Signs Temp 98.2 F 02/06/25 12:41 Pulse 73 02/06/25 12:41 BP 130/92 H 02/06/25 12:41 Pulse Ox 95 02/06/25 12:41 Oxygen Delivery Method Room Air 02/06/25 12:41 BMI result Body Mass Index 35.7 Assessment & Plan Assessment & Plan (1) Medicare annual wellness visit, subsequent: Code(s): Z00.00 - Encounter for general adult medical examination without abnormal findings (2) Iron deficiency anemia: Code(s): D50.9 - Iron deficiency anemia, unspecified Qualifiers: Iron deficiency anemia type: chronic blood loss Qualified Code(s): D50.0 - Iron deficiency anemia secondary to blood loss (chronic) (3) Hypertension, essential: Code(s): I10 - Essential (primary) hypertension (4) Obesity due to excess calories: Code(s): E66.09 - Other obesity due to excess calories Qualifiers: Body mass index: BMI 35.0-35.9 Obesity classification: adult class 2 (BMI 35 - 39.9) Serious obesity comorbidity presence: with serious comorbidity Qualified Code(s): E66.01 - Morbid (severe) obesity due to excess calories; Z68.35 - Body mass index [BMI] 35.0-35.9, adult (5) Overactive bladder: Code(s): N32.81 - Overactive bladder (6) 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: Code(s): I83.10 - 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 Qualifiers: Laterality: left Qualified Code(s): I83.12 - Varicose veins of left lower extremity with inflammation (7) Lymphedema: Code(s): I89.0 - Lymphedema, not elsewhere classified (8) Age related osteoporosis: Code(s): M81.0 - Age-related osteoporosis without current pathological fracture Qualifiers: Presence of current pathological fracture: without current pathological fracture Qualified Code(s): M81.0 - Age-related osteoporosis without current pathological fracture (9) Ulcerative colitis: Code(s): K51.90 - Ulcerative colitis, unspecified, without complications Qualifiers: Digestive disease complication type: unspecified complication Ulcerative colitis location: other ulcerative colitis Plan History - The patient is a 69-year-old female presenting for a wellness visit, with a focus on managing osteoporosis and essential hypertension. - Osteoporosis: The patient has a history of osteoporosis with a recent bone density scan in September 2023 showing a T-score of -2.8. She reported a previous attempt to use a medication (alendronate) that did not agree with her due to an unspecified side effect. Nevertheless, she is willing to reattempt oral therapy. - Essential Hypertension: Blood pressure was noted to be slightly elevated at 130/92 mmHg during today's visit, although it was normal during a previous measurement. - Past medical management includes established care with a radiographer mammographer for the managment of ulcerative colitis , taking med, stable and adherence to mammogram updating as of September this year. Medical History: - Essential Hypertension - Osteoporosis - Bilateral Lymphedema - Peripheral Vascular Disease - History of Uterine Fibroids, status post-hysterectomy - Vitamin D Deficiency (on supplementation) - Ulercative collitis Surgical History: - Hysterectomy for uterine fibroids Medications: - Atenolol 25 mg for hypertension - Iron supplement - Loratadine - Meclizine - Mesalamine - Solifenacin (Vesicare) for bladder management - Vitamin D3 supplement for vitamin D deficiency Social History: - The patient is actively involved in caregiving, as evidenced by her recent experience of watching and caring for her son's dog, which requires physical activity through play. Diagnostic Results: - Labs: Complete blood count (CBC) normal, electrolytes normal, kidney functions normal, liver enzymes normal, and LDL cholesterol level 106 mg/dL as of October. - Bone Density Test: T-score of -2.8 indicating osteoporosis, conducted in September 2023. Problem List - Essential Hypertension - Bilateral Lymphedema - Osteoporosis - Peripheral Vascular Disease - History of Uterine Fibroids (status post-hysterectomy) Patient Instructions - Begin the new medication (bandronate) on the 7th of every month. - Take the medication on an empty stomach and stay upright for 30 minutes after taking it. - Keep track of any side effects such as nausea, heartburn, or itching, and contact the practice if these occur. - Maintain current medication regimen with no changes as of now. - Record the administration date on a calendar to ensure adherence. Orders: Orders Complete Blood Count Auto Diff 3 Months D50.0 - Iron deficiency anemia secondary to blood loss (chronic), E66.01 - Morbid (severe) obesity due to excess calories, I10 - Essential (primary) hypertension, I83.12 - Varicose veins of left lower extremity with inflammation, I89.0 - Lymphedema, not elsewhere classified, K51.90 - Ulcerative colitis, unspecified, without complications, M81.0 - Age-related osteoporosis without current pathological fracture, N32.81 - Overactive bladder, Z68.35 - Body mass index [BMI] 35.0-35.9, adult LDL Cholesterol Direct 3 Months D50.0 - Iron deficiency anemia secondary to blood loss (chronic), E66.01 - Morbid (severe) obesity due to excess calories, I10 - Essential (primary) hypertension, I83.12 - Varicose veins of left lower extremity with inflammation, I89.0 - Lymphedema, not elsewhere classified, K51.90 - Ulcerative colitis, unspecified, without complications, M81.0 - Age-related osteoporosis without current pathological fracture, N32.81 - Overactive bladder, Z68.35 - Body mass index [BMI] 35.0-35.9, adult Ferritin 3 Months D50.0 - Iron deficiency anemia secondary to blood loss (chronic), E66.01 - Morbid (severe) obesity due to excess calories, I10 - Essential (primary) hypertension, I83.12 - Varicose veins of left lower extremity with inflammation, I89.0 - Lymphedema, not elsewhere classified, K51.90 - Ulcerative colitis, unspecified, without complications, M81.0 - Age-related osteoporosis without current pathological fracture, N32.81 - Overactive bladder, Z68.35 - Body mass index [BMI] 35.0-35.9, adult Magnesium 3 Months D50.0 - Iron deficiency anemia secondary to blood loss (chronic), E66.01 - Morbid (severe) obesity due to excess calories, I10 - Essential (primary) hypertension, I83.12 - Varicose veins of left lower extremity with inflammation, I89.0 - Lymphedema, not elsewhere classified, K51.90 - Ulcerative colitis, unspecified, without complications, M81.0 - Age-related osteoporosis without current pathological fracture, N32.81 - Overactive bladder, Z68.35 - Body mass index [BMI] 35.0-35.9, adult Comprehensive Met. Panel 3 Months D50.0 - Iron deficiency anemia secondary to blood loss (chronic), E66.01 - Morbid (severe) obesity due to excess calories, I10 - Essential (primary) hypertension, I83.12 - Varicose veins of left lower extremity with inflammation, I89.0 - Lymphedema, not elsewhere classified, K51.90 - Ulcerative colitis, unspecified, without complications, M81.0 - Age-related osteoporosis without current pathological fracture, N32.81 - Overactive bladder, Z68.35 - Body mass index [BMI] 35.0-35.9, adult Vitamin D 25-OH (D2 and D3) 3 Months D50.0 - Iron deficiency anemia secondary to blood loss (chronic), E66.01 - Morbid (severe) obesity due to excess calories, I10 - Essential (primary) hypertension, I83.12 - Varicose veins of left lower extremity with inflammation, I89.0 - Lymphedema, not elsewhere classified, K51.90 - Ulcerative colitis, unspecified, without complications, M81.0 - Age-related osteoporosis without current pathological fracture, N32.81 - Overactive bladder, Z68.35 - Body mass index [BMI] 35.0-35.9, adult Medications: New ibandronate 150 mg PO .q one month 90 days 3 tabs 0RF Quality Reporting (2019) Depression/Bipolar (159/160/161/177) PHQ-9: Total score: 0 Coding Level of Care Code Medicare Subsequent (G0439) Est Pt Level 3 (04719) Diagnoses Medicare annual wellness visit, subsequent Z00.00 Iron deficiency anemia due to chronic blood loss D50.0 Iron deficiency anemia type: chronic blood loss Hypertension, essential I10 Class 2 severe obesity due to excess calories with serious comorbidity and body mass index (BMI) of 35.0 to 35.9 in adult E66.01; Z68.35 Body mass index: BMI 35.0-35.9 Obesity classification: adult class 2 (BMI 35 - 39.9) Serious obesity comorbidity presence: with serious comorbidity Overactive bladder N32.81 Varicose veins of left lower extremity with inflammation I83.12 Laterality: left Lymphedema I89.0 Age-related osteoporosis without current pathological fracture M81.0 Presence of current pathological fracture: without current pathological fracture Ulcerative colitis K51.90 Digestive disease complication type: unspecified complication Ulcerative colitis location: other ulcerative colitis CPT Codes Advance Care Planning - Advance Care Planning discussion: On file, no changes ([id number]) Advance Care Planning - Time spent: 1-15 minutes, on File ([id number]) Advance Care Planning Advance Care Planning discussion: On file, no changes Time spent: 1-15 minutes, on File
== END 2025-02-06 13:14 | disposition home or self-care (01) ==
LOC: HO.HMCC 12:36
PROVIDERS: PCP Internal Medicine; Visit Provider Internal Medicine
DX: Z00.00 Encounter for general adult medical examination without abnormal findings (principal); D50.0 Iron deficiency anemia secondary to blood loss (chronic); E66.01 Morbid (severe) obesity due to excess calories; Z68.35 Body mass index [BMI] 35.0-35.9, adult; K51.90 Ulcerative colitis, unspecified, without complications; I10 Essential (primary) hypertension; N32.81 Overactive bladder; I83.12 Varicose veins of left lower extremity with inflammation; I89.0 Lymphedema, not elsewhere classified; M81.0 Age-related osteoporosis without current pathological fracture

== ENCOUNTER → 2025-02-06 12:35 | Outpatient (BNVA) | payer MEDICARE, OTHER, SELFPAY | PROVIDERS: PCP Internal Medicine; Visit Provider Internal Medicine | DX: Z00.00 Encounter for general adult medical examination without abnormal findings (principal); D50.0 Iron deficiency anemia secondary to blood loss (chronic); I10 Essential (primary) hypertension; E66.01 Morbid (severe) obesity due to excess calories; Z68.35 Body mass index [BMI] 35.0-35.9, adult; N32.81 Overactive bladder; I89.0 Lymphedema, not elsewhere classified; I83.12 Varicose veins of left lower extremity with inflammation; M81.0 Age-related osteoporosis without current pathological fracture; K51.90 Ulcerative colitis, unspecified, without complications | CPT/HCPCS: 99212 ==

== ENCOUNTER 2025-03-02 13:43 | Outpatient (AMB) | payer MEDICARE, OTHER, SELFPAY ==
--- NOTE | 2025-03-02 13:45 | A.OFFVIS_ITS ---
Vital Signs 03/02/25 13:47 Height 5 ft 4 in Weight 202 lb 13.204 oz BMI 34.8 BP 122/64 Blood Pressure Location Lt brachial Position Sitting Pulse 74 Intake Visit Reasons: Ulcerative proctosigmoiditis w/ complication f/u Intake Note: Daya presents in the office as a follow up. CC: states that she does not have many concerns today - wants to know if there is a single pill she can take for colitis other than the suppository and 4 other medications. Biologist Required: No Allergies amlodipine Adverse Reaction (Verified 03/02/25 13:48) Ankle swelling lisinopril Adverse Reaction (Verified 03/02/25 13:48) Cough HPI HPI Ulcerative proctosigmoiditis w/ complication f/u: Details: 69 yr old f here for f/u RECAP: She actually presented with sudden onset left ear tinnitus with vertigo and non bloody emesis with nausea. No headache or limb weakness or slurred speech. symptoms worse with turning her head. As part of work up she had lasb drawn with HGB 8.8 and low MCY (HGB had been 13 g/dl 3 yrs ago. She does endorse occ blood mixed in stool for last several months as well as new onset post prandail diarrheal type stool. she has been taking ibuprofen for years for back pain on daily basis, with occ use of tums or pepcid for dyspepsia. Denies melena, epistaxis, hemoptysis, vaginal bleeding or hematuria. She gets v occ lower abdominal cramps. ?she had colonoscopy in 2017-found to have diverticulosis, internal hemorrhoids.? Never had EGD. ?Lives with her , denies any smoking or recreational drug use or ETOH use. 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 Duodenum, biopsy:? Chronic inactive duodenitis. B.? Stomach, biopsy:? Oxyntic mucosa with mild chronic inactive inflammation; no Helicobacter organisms seen. C.? Terminal ileum, biopsy:? Small intestinal mucosa within normal limits. D.? Colon, right, biopsy:? Colonic mucosa within normal limits. E.? Colon, sigmoid/rectum, biopsy:? Chronic, mildly active, colitis. COMMENT:? No dysplasia or granulomata are seen. INTERIM: she is feeling well intolerant of lactose stools are normal --going 1-2 times, daily no blood in stool no diarrhea taking apriso daily, EXAM: GENERAL: The patient is well developed and nontoxic. VITAL SIGNS:see workflow HEENT: Nonicteric sclerae, PERRLA, EOMI. Oropharynx clear. Moist mucous membranes. Conjunctivae appear well perfused. No thyroid mass. CHEST: Chest wall is nontender. HEART: Regular rate and rhythm without murmurs. LUNGS: Clear to auscultation bilaterally. ABDOMEN: Soft, positive bowel sounds, nontender, no organomegaly.no flank tenderness SKIN: No rash, no excessive bruising, petechiae, or purpura. NEUROLOGIC: Cranial nerves II-XII intact without motor/sensory deficit. psych- nml affect A/P: 1/ lactose intolerance 2/ Ulcerative colitis, controlled, minimal symptoms PLAN: 1/ cont meslamine enema three times a week and cont PO mesalamine - 2/ check fecal lactoferrin --labs 10/2024 were good 3/ avoid or minimize nsaids 4/ lactose free milk and ice cream can be tried PFSH Medical History Lumbar degenerative disc disease Lumbar spondylosis Colitis Anemia HTN (hypertension) Surgical History History of esophagogastroduodenoscopy (EGD) Hx of colonoscopy H/O: hysterectomy Family History Mother Bladder cancer Brother Cancer of kidney Lung cancer Brother Lung cancer Social History Household Members: Spouse Housing: House Do you presently have visiting nurse or other home services: No Alcohol intake: never Patient Tobacco Use Status: Former Tobacco user e-Cigarette/Vaping Use: Never Used service: No Current occupational status: retired Cognitive needs: No Hearing needs: No Vision needs: Yes Physical Exam Vital Signs: Last Vital Signs Pulse 74 03/02/25 13:47 BP 122/64 03/02/25 13:47 BMI result Body Mass Index 34.8 Assessment & Plan Assessment & Plan (1) Ulcerative proctosigmoiditis with complication: Code(s): K51.319 - Ulcerative (chronic) rectosigmoiditis with unspecified complications Category: Medical Plan: as above Orders: Orders Lactoferrin, Fecal, Quant. Today K51.50 - Left sided colitis without complicat ions Medications: Discontinued ibandronate Discontinued Reason: Patient no longer taking 150 mg PO .q one month 90 days 3 tabs 0RF Coding Level of Care Code Est Pt Level 3 (27419) Diagnoses Ulcerative proctosigmoiditis with complication K51.319
[2025-03-02 13:47] VITALS: BP 122/64; PULSE 74; BMI 34.8
--- OUTSIDE RECORDS SUMMARY | 2025-03-02 14:14 | XMS_ITS | Patient Health Record ---
Author Organization [facility] Address [address] [place] [id number] Care Team Providers Care Cone Tender Name Role Phone Dashawn Ambrosio Unavailable [phone] Reason For Referral No Information Plan Of Treatment No Information
--- OUTSIDE RECORDS SUMMARY | 2025-03-02 14:14 | XMS_ITS | Clinical Summary ---
Author Organization [facility] Address [address] [place] [address] Care Team Providers Care Legislative Analyst Name Role Phone Unavailable Primary Care Provider [...] Fecal DNA 2000 Flexible Sigmoidoscopy 2000 Imm-Pneumococcal 50+ (1 of 1 - PCV) 2005 Imm-Zoster, Recombinant (1 of 2) 2005 Bone Density Screening 2020 Falls Prevention 2020 [id number] ( season) 05/04/202412/15/2 021, 11/17/2020 Alcohol and Drug Screen 09/03/2024 Depression Annual Screen 09/03/2024 Imm-Influenza (Season Ended) 2025, 05/03/2017, 10/25/2015
== END 2025-03-02 14:18 | disposition home or self-care (01) ==
LOC: HO.HGI 13:44
PROVIDERS: PCP Internal Medicine; Visit Provider Internal Medicine Gastroenterology
DX: K51.319 Ulcerative (chronic) rectosigmoiditis with unspecified complications (principal)
CPT/HCPCS: 99213

== ENCOUNTER → 2025-03-02 13:43 | Outpatient (BNVA) | payer MEDICARE, OTHER, SELFPAY | PROVIDERS: PCP Internal Medicine; Visit Provider Internal Medicine Gastroenterology | DX: K51.30 Ulcerative (chronic) rectosigmoiditis without complications (principal) | CPT/HCPCS: 99212 ==

== ENCOUNTER 2025-03-12 12:40 | Outpatient (REF) | payer MEDICARE, OTHER, SELFPAY ==
--- OUTSIDE RECORDS SUMMARY | 2025-03-12 12:42 | XMS_ITS | Clinical Summary ---
Author Organization [facility] Address [address] [place] [address] Care Team Providers Care Unemployment Specialist Name Role Phone Unavailable Primary Care Provider [...] Bone Density Screening 2020 Falls Prevention 2020 [id number] ( season) 05/04/202412/15/2 021, 11/17/2020 Alcohol and Drug Screen 09/03/2024 Depression Annual Screen 09/03/2024 Imm-Influenza (#1) 2025 06/19/2018, 0 05/03/2017, 10/25/2015
--- OUTSIDE RECORDS SUMMARY | 2025-03-12 12:42 | XMS_ITS | Patient Health Record ---
Author Organization [facility] Address [address] [place] [id number] Care Team Providers Care Limnology Teacher Name Role Phone Dashawn Ambrosio Unavailable [phone] Reason For Referral No Information Plan Of Treatment No Information
[2025-03-19 00:24] LABS: Lactoferrin, Fecal, Quant. <6.25 mcg/mL (<7.25)
== END 2025-03-12 12:41 | disposition home or self-care (01) ==
LOC: HO.LNP 12:40
PROVIDERS: Visit Provider Internal Medicine Gastroenterology
DX: K51.50 Left sided colitis without complications (principal)
CPT/HCPCS: 83631

== ENCOUNTER 2025-05-05 08:12 | Outpatient (REF) | payer MEDICARE, OTHER, SELFPAY ==
--- OUTSIDE RECORDS SUMMARY | 2025-05-05 08:45 | XMS_ITS | Clinical Summary ---
Author Organization [facility] Address [address] [place] [address] Care Team Providers Care Automotive Brake Specialist Name Role Phone Unavailable Primary Care [...] Bone Density Screening 2020 Falls Prevention 2020 [id number] ( season) 05/04/202412/15/2 021, 11/17/2020 Alcohol and Drug Screen 09/03/2024 Depression Annual Screen 09/03/2024 Imm-Influenza (#1) 2025 06/19/2018, 0 05/03/2017, 10/25/2015
--- OUTSIDE RECORDS SUMMARY | 2025-05-05 08:45 | XMS_ITS | Patient Health Record ---
Author Organization [facility] Address [address] [place] [phone] Care Team Providers Care State Wildlife Officer Name Role Phone Dashawn Ambrosio Unavailable [phone] Reason For Referral No Information Plan Of Treatment No Information
[2025-05-05 10:50] LABS: MANUAL DIFF FLAG NO
[2025-05-05 11:00] LABS: Hematocrit 41.0 % (37.0-47.0); Hemoglobin 13.0 g/dl (12.0-16.0); Imm Gran Abs Auto 0.02 X10*3/uL (0.00-0.03); Imm Gran Pct Auto 0.3 % (0.0-0.4); Lymphocytes Absolute Auto 1.6 X10*3/uL (1.2-4.9); Mean Corpuscular HGB Conc 31.7 g/dl (31.0-35.0); Mean Corpuscular Hemoglobin 28.6 pg (27.0-33.0); Mean Corpuscular Volume 90.3 fL (80.0-98.0); NRBC Abs Auto 0.000 X10*3/uL (0.0-0.012); NRBC Pct Auto 0.0 /100WBC (0.0-0.2); Platelet Count 242 X10*3/uL (160-400); Red Blood Count 4.54 X10*6/uL (4.20-5.50); White Blood Count 7.5 X10*3/uL (4.8-10.8)
[2025-05-05 12:40] LABS: Ferritin 215 ng/mL (10-250)
[2025-05-05 13:14] LABS: Alanine Aminotransferase 14 U/L (0-31); Albumin Level 4.2 g/dL (3.5-5.0); Alkaline Phosphatase 54 U/L (39-117); Anion Gap 12 (12-20); Aspartate Amino Transferase 22 U/L (5-31); Blood Urea Nitrogen 12 mg/dL (9-16); Calcium 8.6 mg/dL (8.4-10.2); Carbon Dioxide 27 mmol/L (22-29); Chloride 106 mmol/L (96-108); Estimated Glomerular Filt Rate > 60; Magnesium 2.2 mg/dL (1.6-2.6); Potassium 3.8 mmol/L (3.3-5.1); Sodium 141 mmol/L (135-145); Total Protein 7.3 g/dL (6.5-8.0)
[2025-05-10 14:39] LABS: Vitamin D 25-OH, D2 <4 ng/mL; Vitamin D 25-OH, D3 30 ng/mL; Vitamin D 25-OH, Total 30 ng/mL (30-100)
== END 2025-05-05 08:13 | disposition home or self-care (01) ==
LOC: HO.HMGCLDS 08:12
PROVIDERS: PCP Internal Medicine; Visit Provider Internal Medicine
DX: M81.0 Age-related osteoporosis without current pathological fracture (principal); I89.0 Lymphedema, not elsewhere classified; I83.12 Varicose veins of left lower extremity with inflammation; N32.81 Overactive bladder; E66.01 Morbid (severe) obesity due to excess calories; I10 Essential (primary) hypertension; D50.0 Iron deficiency anemia secondary to blood loss (chronic); K51.90 Ulcerative colitis, unspecified, without complications; Z68.35 Body mass index [BMI] 35.0-35.9, adult
CPT/HCPCS: 36415; 80053; 82306; 82728; 83721; 83735; 85025

== ENCOUNTER 2025-05-12 11:26 | Outpatient (AMB) | payer MEDICARE, OTHER, SELFPAY ==
--- NOTE | 2025-05-12 11:28 | MHC.PC.OV ---
Vital Signs 05/12/25 11:30 Height 5 ft 4 in Weight 204 lb BMI 35.0 BP 134/70 Blood Pressure Location Lt brachial Position Sitting Pulse 73 Pulse Source Pulse Oximeter Pulse Oximetry (%) 98 Intake Visit Reasons: 3m f/u Allergies amlodipine Adverse Reaction (Verified 05/12/25 11:30) Ankle swelling lisinopril Adverse Reaction (Verified 05/12/25 11:30) Cough Medication List - Last Reconciled 05/12/25 by Ford Krishnan MD acetaminophen (Tylenol Extra Strength) 500 mg PO Q6H PRN atenolol 25 mg PO DAILY cholecalciferol (vitamin D3) 25 mcg PO DAILY ferrous sulfate 324 mg PO BID 90 days ibandronate 150 mg PO .q one month 90 days loratadine (Claritin) 10 mg PO DAILY PRN meclizine 25 mg PO Q6H PRN 30 days mesalamine 1,000 mg [place] BEDTIME mesalamine ER 1.5 grams (4 x 0.375 gram) PO QAM solifenacin (Vesicare) 10 mg PO DAILY Tobacco use date assessed: 10/21/24 Fall risk assessment: No Falls in past year Last assessed Fall Risk: 05/12/25 Dental Screening Dental Screen Date: 10/21/24 HPI 3m f/u HPI Details History - The patient is a 69-year-old female presenting for a regular follow-up visit. - She has a history of Essential Hypertension, managed with atenolol 25 mg, and her blood pressure is stable. - Iron Deficiency Anemia : stable, for which she is taking iron supplements. - She uses loratadine 10 mg as needed for her Seasonal Allergic Rhinitis. - Dizziness stable. - The patient continues using Mesalamine for Ulcerative Colitis management. - Vesicare is used for her Overactive Bladder. - She reports swelling of her ankles leena if standing for long, I am prescribing lasix to be taken as needed for that. Problem List - Essential Hypertension - Iron Deficiency Anemia - Seasonal Allergic Rhinitis - Dizziness - Ulcerative Colitis - Overactive Bladder - ankle swelling Patient Instructions - take lasix as needed for ankle swelling. - Continue current medications as prescribed. - Follow up as scheduled for the next apt in 4 [facility] Medical History Lumbar degenerative disc disease Lumbar spondylosis Colitis Anemia HTN (hypertension) Surgical History History of esophagogastroduodenoscopy (EGD) Hx of colonoscopy H/O: hysterectomy Family History Mother Bladder cancer Brother Cancer of kidney Lung cancer Brother Lung cancer Social History Household Members: Spouse Housing: House Do you presently have visiting nurse or other home services: No Alcohol intake: never Patient Tobacco Use Status: Former Tobacco user e-Cigarette/Vaping Use: Never Used service: No Current occupational status: retired Cognitive needs: No Hearing needs: No Vision needs: Yes Questionnaire PHQ-9 Over the last 2 weeks, how often have you been bothered by any of the following problems? 1. Little interest or pleasure in doing things: not at all 2. Feeling down, depressed, or hopeless: not at all 3. Trouble falling or staying asleep, or sleeping too much: not at all 4. Feeling tired or having little energy: not at all 5. Poor appetite or overeating: not at all 6. Feeling bad about yourself - or that you are a failure or have let yourself or your family down: not at all 7. Trouble concentrating on things, such as reading the newspaper or watching television: not at all 8. Moving or speaking so slowly that other people could have noticed. Or the opposite - being so fidgety or restless that you have been moving around a lot more than usual: not at all 9. Thoughts that you would be better off or of hurting yourself in some way: not at all Total score: 0 Depression Screening Interpretation: Negative Depression Screening Done: Yes 30961 - PHQ-9 Billing: Yes Source: Developed by Drs. Dashawn Restrepo, Jessica Worthington, Rodrigo Reynolds and colleagues, with an educational olena from [employer]. Thrive Questionnaire Date Thrive assessed: 10/21/24 I am a: Patient What is your living situation today?: I have a steady place to live Within the past 12 months, did the food you bought not last and you didn't have the money to get more?: Never true Within the past 12 months, did you worry whether your food would run out before you got money to buy more?: Never true Do you have trouble paying for medicines?: No Do you have trouble getting transportation to medical appointments?: No Do you have trouble paying your heating and electricity bill?: No Do you have trouble taking care of your child, family member or friend?: No Do you have trouble with day-to-day activities such as bathing, preparing meals, shopping, managing finances, etc.?: No Are you currently unemployed and looking for a job?: No Are you interested in more education?: No Please select the resources that you would like help with: None Currently or been in a relationship where the following occur: No concerns reported THRIVE Score: 0 LIBERTAD-7 AMB Questionnaire LIBERTAD-7 Date LIBERTAD - 7 assessed: 10/21/24 Source: Developed by Drs. Dashawn Restrepo, Jessica Worthington, Rodrigo Reynolds and colleagues, with an educational olena from [employer]. Review of Systems Const Denies chills and Denies fever(s) ENT Denies epistaxis and Denies nasal discharge Card Denies chest pain Resp Denies chest congestion, Denies cough and Denies hemoptysis GI Denies diarrhea and Denies nausea Skin/Breast Denies rash Neuro Reports no additional complaints Psych Reports no additional complaints Endo Reports no additional complaints Physical exam (Primary Care) Vital Signs: Last Vital Signs Pulse 73 05/12/25 11:30 BP 134/70 05/12/25 11:30 Pulse Ox 98 05/12/25 11:30 BMI result Body Mass Index 35.0 Tobacco/Smoking Status: Tobacco use Status Tobacco use date assessed 10/21/24 05/12/25 11:32 Patient Tobacco Use Status Former Tobacco user 05/12/25 11:32 e-Cigarette/Vaping Use Never Used 05/12/25 11:32 PHQ-9: PHQ-9 Score PHQ-9: Total score 0 05/12/25 11:37 Depression Screening Interpretation: Negative Thrive Assessment: Date of Thrive Assessment Date Thrive assessed 10/21/24 05/12/25 11:32 Currently or been in a relationship where the following occur: No concerns reported Const General: cooperative, comfortable and no acute distress Orientation/consciousness: patient oriented x3 HENMT Head: Yes normocephalic Eyes General: appearance normal, both eyes and all related structures Neck Neck: Yes supple Resp Effort & Inspection: normal respiratory effort, no cough and no stridor Cardio Rhythm: regular rhythm Heart sounds: S1 normal heart sound present and S2 normal heart sound present Skin General skin exam: turgor normal Neuro General: patient oriented x3, tone normal and moves all extremities Coding Level of Care Code Est Pt Level 4 (41325) Complex EM visit Add On G2211 Diagnoses Hypertension, essential I10 Iron deficiency anemia due to chronic blood loss D50.0 Iron deficiency anemia type: chronic blood loss Class 2 severe obesity due to excess calories with serious comorbidity and body mass index (BMI) of 35.0 to 35.9 in adult E66.01; Z68.35 Obesity classification: adult class 2 (BMI 35 - 39.9) Serious obesity comorbidity presence: with serious comorbidity Body mass index: BMI 35.0-35.9 Overactive bladder N32.81 Peripheral vascular disease I73.9 Age-related osteoporosis without current pathological fracture M81.0 Presence of current pathological fracture: without current pathological fracture Lymphedema I89.0 Additional Codes PHQ-9 - 40240 - PHQ-9 Billing: Yes ([id number]) Assessment & Plan Assessment & Plan (1) Hypertension, essential: Code(s): I10 - Essential (primary) hypertension Category: Medical (2) Iron deficiency anemia: Code(s): D50.9 - Iron deficiency anemia, unspecified Category: Medical Qualifiers: Iron deficiency anemia type: chronic blood loss Qualified Code(s): D50.0 - Iron deficiency anemia secondary to blood loss (chronic) (3) Obesity due to excess calories: Code(s): E66.09 - Other obesity due to excess calories Category: Medical Qualifiers: Obesity classification: adult class 2 (BMI 35 - 39.9) Serious obesity comorbidity presence: with serious comorbidity Body mass index: BMI 35.0-35.9 Qualified Code(s): E66.01 - Morbid (severe) obesity due to excess calories; Z68.35 - Body mass index [BMI] 35.0-35.9, adult (4) Overactive bladder: Code(s): N32.81 - Overactive bladder Category: Medical (5) Peripheral vascular disease: Code(s): I73.9 - Peripheral vascular disease, unspecified Category: Medical (6) Age related osteoporosis: Code(s): M81.0 - Age-related osteoporosis without current pathological fracture Category: Medical Qualifiers: Presence of current pathological fracture: without current pathological fracture Qualified Code(s): M81.0 - Age-related osteoporosis without current pathological fracture (7) Lymphedema: Code(s): I89.0 - Lymphedema, not elsewhere classified Category: Medical Plan History - The patient is a 69-year-old female presenting for a regular follow-up visit. - She has a history of Essential Hypertension, managed with atenolol 25 mg, and her blood pressure is stable. - Iron Deficiency Anemia : stable, for which she is taking iron supplements. - She uses loratadine 10 mg as needed for her Seasonal Allergic Rhinitis. - Dizziness stable. - The patient continues using Mesalamine for Ulcerative Colitis management. - Vesicare is used for her Overactive Bladder. - She reports swelling of her ankles leena if standing for long, I am prescribing lasix to be taken as needed for that. Problem List - Essential Hypertension - Iron Deficiency Anemia - Seasonal Allergic Rhinitis - Dizziness - Ulcerative Colitis - Overactive Bladder - ankle swelling Patient Instructions - take lasix as needed for ankle swelling. - Continue current medications as prescribed. - Follow up as scheduled for the next apt in 4 M Medications: New furosemide (Lasix) 20 mg PO Q OTHER DAY 30 tabs 0RF feet swelling
[2025-05-12 11:30] VITALS: BP 134/70; PULSE 73; O2SAT 98; BMI 35.0
--- OUTSIDE RECORDS SUMMARY | 2025-05-12 13:55 | XMS_ITS | Clinical Summary ---
Author Organization [facility] Address [address] [place] [address] Care Team Providers Care Veneer Measurer Name Role Phone Unavailable Primary Care Provider [...] Bone Density Screening 2020 Falls Prevention 2020 Alcohol and Drug Screen 09/03/2024 Depression Annual Screen 09/03/2024 [id number] (3 - season) 05/04/202512/15/2 021, 11/17/2020 Imm-Influenza (#1) 2025 06/19/2018, 0 05/03/2017, 10/25/2015
--- OUTSIDE RECORDS SUMMARY | 2025-05-12 13:55 | XMS_ITS | Patient Health Record ---
Author Organization [facility] Address [address] [place] [phone] Care Team Providers Care Process Development Chemist Name Role Phone Dashawn Ambrosio Unavailable [phone] Reason For Referral No Information Plan Of Treatment No Information
== END 2025-05-12 11:55 | disposition home or self-care (01) ==
LOC: HO.HMCC 11:27
PROVIDERS: PCP Internal Medicine; Visit Provider Internal Medicine
DX: I10 Essential (primary) hypertension (principal); D50.0 Iron deficiency anemia secondary to blood loss (chronic); E66.01 Morbid (severe) obesity due to excess calories; Z68.35 Body mass index [BMI] 35.0-35.9, adult; N32.81 Overactive bladder; I73.9 Peripheral vascular disease, unspecified; M81.0 Age-related osteoporosis without current pathological fracture; I89.0 Lymphedema, not elsewhere classified

== ENCOUNTER → 2025-05-12 11:26 | Outpatient (BNVA) | payer MEDICARE, OTHER, SELFPAY | PROVIDERS: PCP Internal Medicine; Visit Provider Internal Medicine | DX: I10 Essential (primary) hypertension (principal); J30.2 Other seasonal allergic rhinitis; R42 Dizziness and giddiness; N32.81 Overactive bladder; D50.0 Iron deficiency anemia secondary to blood loss (chronic); E66.01 Morbid (severe) obesity due to excess calories; I73.9 Peripheral vascular disease, unspecified; M81.0 Age-related osteoporosis without current pathological fracture; I89.0 Lymphedema, not elsewhere classified; Z68.35 Body mass index [BMI] 35.0-35.9, adult; Z79.899 Other long term (current) drug therapy | CPT/HCPCS: 96127; 99212 ==

== ENCOUNTER 2025-07-27 13:11 | Outpatient (AMB) | payer MEDICARE, OTHER, SELFPAY ==
--- NOTE | 2025-07-27 13:27 | MHC.OFFVIS ---
Vital Signs 07/27/25 13:33 Height 5 ft 4 in Weight 199 lb BMI 34.2 BP 140/60 H Blood Pressure Location Lt brachial Position Sitting Pulse 69 Intake Visit Reasons: f/u fecal jony Intake Note: Daya returns in follow up of Ulcerative proctosigmoiditis. CC: Pt denies any GI symptoms or concerns today. Bearingizer Required: No Accompanied by: Self / Same As Patient Allergies amlodipine Adverse Reaction (Verified 07/27/25 13:33) Ankle swelling lisinopril Adverse Reaction (Verified 07/27/25 13:33) Cough HPI HPI f/u fecal jony: Details: 69 yr old f here for f/u RECAP: She actually presented with sudden onset left ear tinnitus with vertigo and non bloody emesis with nausea. No headache or limb weakness or slurred speech. symptoms worse with turning her head. As part of work up she had lasb drawn with HGB 8.8 and low MCY (HGB had been 13 g/dl 3 yrs ago. She does endorse occ blood mixed in stool for last several months as well as new onset post prandail diarrheal type stool. she has been taking ibuprofen for years for back pain on daily basis, with occ use of tums or pepcid for dyspepsia. Denies melena, epistaxis, hemoptysis, vaginal bleeding or hematuria. She gets v occ lower abdominal cramps. ?she had colonoscopy in 2017-found to have diverticulosis, internal hemorrhoids.? Never had EGD. ?Lives with her , denies any smoking or recreational drug use or ETOH use. 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 Duodenum, biopsy:? Chronic inactive duodenitis. B.? Stomach, biopsy:? Oxyntic mucosa with mild chronic inactive inflammation; no Helicobacter organisms seen. C.? Terminal ileum, biopsy:? Small intestinal mucosa within normal limits. D.? Colon, right, biopsy:? Colonic mucosa within normal limits. E.? Colon, sigmoid/rectum, biopsy:? Chronic, mildly active, colitis. COMMENT:? No dysplasia or granulomata are seen. INTERIM: she has no abdominal symptoms stools are normal --going 1-2 times, daily no blood in stool no diarrhea taking apriso daily, and mesalamine supps every other day EXAM: GENERAL: The patient is well developed and nontoxic. VITAL SIGNS:see workflow HEENT: Nonicteric sclerae, PERRLA, EOMI. Oropharynx clear. Moist mucous membranes. Conjunctivae appear well perfused. No thyroid mass. CHEST: Chest wall is nontender. HEART: Regular rate and rhythm without murmurs. LUNGS: Clear to auscultation bilaterally. ABDOMEN: Soft, positive bowel sounds, nontender, no organomegaly.no flank tenderness SKIN: No rash, no excessive bruising, petechiae, or purpura. NEUROLOGIC: Cranial nerves II-XII intact without motor/sensory deficit. psych- nml affect A/P: 1/ Ulcerative colitis, controlled, no symptoms , neg fecal lactoferrin PLAN: 1/ cont meslamine enema three times a week and cont PO mesalamine - 2/ annual labs [facility] Medical History Lumbar degenerative disc disease Lumbar spondylosis Colitis Anemia HTN (hypertension) Surgical History History of esophagogastroduodenoscopy (EGD) Hx of colonoscopy H/O: hysterectomy Family History Mother Bladder cancer Brother Cancer of kidney Lung cancer Brother Lung cancer Social History Household Members: Spouse Housing: House Do you presently have visiting nurse or other home services: No Alcohol intake: never Patient Tobacco Use Status: Former Tobacco user e-Cigarette/Vaping Use: Never Used service: No Current occupational status: retired Cognitive needs: No Hearing needs: No Vision needs: Yes Physical Exam Vital Signs: Last Vital Signs Pulse 69 07/27/25 13:33 BP 140/60 H 07/27/25 13:33 BMI result Body Mass Index 34.2 Assessment & Plan Assessment & Plan (1) Ulcerative proctosigmoiditis with complication: Code(s): K51.319 - Ulcerative (chronic) rectosigmoiditis with unspecified complications Category: Medical Plan: as above Coding Level of Care Code Est Pt Level 3 (50990) Diagnoses Ulcerative proctosigmoiditis with complication K51.319
[2025-07-27 13:33] VITALS: BP 140/60; PULSE 69; BMI 34.2
== END 2025-07-27 13:42 | disposition home or self-care (01) ==
LOC: HO.HGI 13:13
PROVIDERS: PCP Internal Medicine; Visit Provider Internal Medicine Gastroenterology
DX: K51.319 Ulcerative (chronic) rectosigmoiditis with unspecified complications (principal)
CPT/HCPCS: 99213

== ENCOUNTER → 2025-07-27 13:11 | Outpatient (BNVA) | payer MEDICARE, OTHER, SELFPAY | PROVIDERS: PCP Internal Medicine; Visit Provider Internal Medicine Gastroenterology | DX: K51.319 Ulcerative (chronic) rectosigmoiditis with unspecified complications (principal); Z87.891 Personal history of nicotine dependence | CPT/HCPCS: 99212 ==